=== PATIENT | female | born 1960 | race Caucasian/White ===

== ENCOUNTER 2020-04-19 00:57 | Emergency (ER) | payer OTHER, BC, SELFPAY ==
[2020-04-19] VITALS (43 sets, daily range): BP systolic 142–213; BP diastolic 88–125; PULSE 68–87; RESP 11–20; TEMP 36.3–36.6; O2SAT 94–100
--- NOTE | ~2020-04-19 | XR_ITS ---
EXAMINATION: XR shoulder LT min 2V EXAM DATE: 04/19/2020 02:40 INDICATION: Postreduction. TECHNIQUE: Frontal and lateral projections of the left shoulder. Comparison is made to prior examina tion from earlier same day. FINDINGS: The left humerus has been reduced, is in expected position. No acute fracture identified, but impaction type injuries of humeral head can be difficult to visualize. IMPRESSION: Status post left shoulder reduction. Reviewed, dictated and finalized at location A. RCOLLAR BASTER
--- NOTE | ~2020-04-19 | XR_ITS ---
EXAMINATION: XR humerus LT EXAM DATE: 04/19/2020 03:51 INDICATION: Left humeral pain distally. TECHNIQUE: Frontal and lateral projections of the left humerus. There is no prior study for compari son. FINDINGS: There are no acute left humerus fractures or dislocations identified. There is no subcutan eous gas. The soft tissue is unremarkable. There are no radiopaque foreign bodies. IMPRESSION: 1. XR humerus LT exam without acute osseous findings. Reviewed, dictated and finalized at location A. SLICER
--- NOTE | ~2020-04-19 | XR_ITS ---
EXAMINATION: XR shoulder LT min 2V EXAM DATE: 04/19/2020 01:25 INDICATION: Fall, left shoulder dislocation. TECHNIQUE: The following left shoulder projections obtained: frontal projection, Grashey, and scapula r Y view (4 views). There is no prior study for comparison. FINDINGS: There is left humeral anterior inferior shoulder dislocation. No acute fracture identified but there could be a Hill-Sachs impaction type injury which is not well-visualized. IMPRESSION: Left humeral anterior inferior shoulder dislocation. Reviewed, dictated and finalized at location A. AURANT HOURLY TEAM MEMBER
--- NOTE | 2020-04-19 01:19 | PC.NURSE ---
Patient taken to xray.
[2020-04-19] MEDS: MORPHINE SULFATE (*CRX) 4 MG/ML INJ IV PUSH (01:32)
[2020-04-19] MEDS: ONDANSETRON INJ 4 MG/2 ML VIAL IV PUSH (01:32)
--- NOTE | 2020-04-19 02:08 | PC.NURSE ---
MD aware of patient's bp.
[2020-04-19] MEDS: PROPOFOL IV EMULSION 200 MG/20 ML VIAL 40 MG IV PUSH (02:10)
--- NOTE | 2020-04-19 02:15 | PC.NURSE ---
2nd dose of propofol given, 20mg IV per ERP .
[2020-04-19] MEDS: HYDROcodone/acetaminophen (*CRX) 5-325 MG TABLET 1 TAB PO (02:52)
--- NOTE | 2020-04-19 03:35 | ED.GENADULT ---
HPI - General Adult General Chief complaint: Extremity Injury, Upper Stated complaint: fall Time Seen by Provider: 04/19/20 01:05 Source: RN notes reviewed History of Present Illness HPI narrative: Patient presents to emergency department from home for left shoulder pain patient states approximately 1030 she fell landing on her left shoulder she felt a pop at that time she denies striking her head or any loss of consciousness she denies any other injury from the fall patient denies any blood thinner use states she took no previous pain medication at home Related Data Home Medications Medication Instructions Recorded Confirmed estradiol mg 04/19/20 Allergies Allergy/AdvReac Type Severity Reaction Status Date / Time adhesive tape Allergy Unknown RASH Verified 04/19/20 01:14 doxycycline Allergy Unknown Nausea and Verified 04/19/20 01:14 Vomiting latex Allergy Unknown rash Verified 04/19/20 01:14 lidocaine Allergy Unknown rash Verified 04/19/20 01:14 verenice warm area losartan Allergy Unknown rash Verified 04/19/20 01:14 Sulfa (Sulfonamide Allergy Unknown rash Verified 04/19/20 01:14 Antibiotics) Review of Systems Review of Systems: Narrative: Gen.: Denies fevers or chills Eyes: Denies eye pain or visual change ENT: Denies facial pain Respiratory: Denies shortness of breath or cough CV: Denies chest pain GI: Denies abdominal pain nausea, emesis or diarrhea Musculoskeletal: See HPI Neuro: Denies numbness, tingling, weakness or focal weakness Skin: Denies rash Except as documented, all other systems reviewed and negative PMFSH Past Medical History Medical History Dental crown present Depression with anxiety Dyslipidemia GERD without esophagitis Menopause Normal Pap smear (~09/2019) Osteoarthritis, localized, knee Primary insomnia Unspecified osteoarthritis, unspecified site Surgical History Surgical History H/O vaginal surgery (~2011) History of dental surgery History of hysterectomy with bilateral oophorectomy (~02/1992) due to endometrial cancer w/ chemo: [facility] History of tonsillectomy and adenoidectomy (~1996) S/P appendectomy (~1969) S/P arthroscopic surgery of left knee (~2016) Family History Family History Father Family history of diabetes mellitus in first degree relative Family history of heart disease in male family member before age 55 Hypertension Family history of cardiovascular disease Sibling Family history of diabetes mellitus in first degree relative Family history of heart disease in male family member before age 55 Family history of seizure disorder Mother Patient's mother is Diabetes mellitus Hypertension Grandparent Diabetes mellitus Hypertension Family history of cardiovascular disease Cerebrovascular accident Other Family history of malignant neoplasm of breast in first degree relative Social History Social History Smoking status: Never smoker Alcohol intake: current Substance use: never 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 CARDIOVASCULAR: Regular rate and rhythm without murmurs rubs or gallops. ABDOMINAL: Soft, nontender, nondistended, no rebound or guarding MUSCULOSKELETAl: No clubbing, cyanosis or edema. No tenderness of right upper extremity and bilateral lower extremities no tenderness of the right elbow or wrist tender p
== END 2020-04-19 04:30 | disposition home or self-care (01) ==
PROVIDERS: Emergency Provider Emergency Medicine; PCP Family Medicine
DX: S43.015A Anterior dislocation of left humerus, initial encounter (principal); E78.5 Hyperlipidemia, unspecified; K21.9 Gastro-esophageal reflux disease without esophagitis; M17.10 Unilateral primary osteoarthritis, unspecified knee; Z92.21 Personal history of antineoplastic chemotherapy; Z85.44 Personal history of malignant neoplasm of other female genital organs; W19.XXXA Unspecified fall, initial encounter
CPT/HCPCS: 23650; 73030; 73060; 96374; 96375; 99285; A9270; J2270; J2405; J2704

== ENCOUNTER 2020-05-13 10:55 | Outpatient (CLI) | payer BC, SELFPAY ==
--- NOTE | ~2020-05-13 | MR_ITS ---
EXAMINATION: MR shoulder LT wo con DATE: 05/13/2020 12:03 INDICATION: Left shoulder dislocations. TECHNIQUE: Magnetic resonance imaging (MRI) of the left shoulder was performed without intravenous co ntrast. Sequences included axial PD-weighted FS FSE, coronal oblique PD-weighted FS FSE, coronal obli que T2-weighted FS FSE, sagittal PD-weighted FS FSE, and sagittal T1-weighted SE. COMPARISON: None. FINDINGS: Coracoacromial arch: The acromion undersurface is curved in minimally morphology (type I-II). The coracoacromial ligament is normal. Acromioclavicular joint is normal. Rotator cuff: The supraspinatus, infraspinatus and teres minor tendons are normal. The subscapularis tendon is norm al. Normal rotator cuff muscle bulk and signal. Biceps tendon, glenoid labrum and glenohumeral cartilage: Long head of the biceps tendon is normal. There is a nondisplaced Bankart fracture of the anteroinfer ior glenoid which extends from the 3:00 to the 9:00 positions with associated labral tears at both lo cations. The crescentic fragment of the articular surface measures approximately 2 cm from the mary ann superior to posterior inferior and 6 mm in orthogonal dimension. There is an additional more well-def ined linear fluid signal intensity tear at the chondral labral junction at the 8:00-9:30 position of the posterior glenoid. Deep chondral ulceration/injury slightly posterolateral to the apex of the hum eral head relatively near a shallow Hill-Sachs fracture trough with mild surrounding edema. Aside fro m along the Bankart fracture plane the glenoid cartilage appears relatively preserved. Fluid: Physiologic amount of fluid in the glenohumeral joint and biceps tendon sheath. No loose osteochondra l bodies. No abnormal fluid signal in the subacromial/subdeltoid bursa to suggest bursitis. Bones/other: Edema associated with the previous noted relatively recent Bankart and Hill-Sachs fractures at the an teroinferior glenoid and posterolateral humeral head respectively. Bone alignment remains essentially anatomic. No other fractures identified. No pathologic marrow replacing process. Partial tear of the posterior inferior glenohumeral ligament. IMPRESSION: 1. Anterior glenohumeral dislocation injury pattern with nondisplaced Bankart fracture at the anteroi nferior glenoid and shallow Hill-Sachs fracture with adjacent partial thickness chondral injury at th e posterolateral humeral head. 2. Additional more well-defined small tear/delamination at the chondral labral junction of the metal buggy operator ior glenoid. 3. Soft tissue edema associated with a partial tear of the posterior inferior glenohumeral ligament l ikely related to the dislocation injury. Reviewed, dictated and finalized at location A. NTAMINATION TECHNICIAN IMPRESSION: 1. Anterior glenohumeral dislocation injury pattern with nondisplaced Bankart f racture at the anteroinferior glenoid and shallow Hill-Sachs fracture with humza cent partial thickness chondral injury at the posterolateral humeral head. 2. Additional more well-defined small tear/delamination at the chondral labral junction of the posterior glenoid. 3. Soft tissue edema associated with a partial tear of the posterior inferior g lenohumeral ligament likely related to the dislocation injury.
== END 2020-05-13 10:56 | disposition home or self-care (01) ==
PROVIDERS: PCP Family Medicine; Visit Provider Orthopaedic Surgery
DX: S42.295A Other nondisplaced fracture of upper end of left humerus, initial encounter for closed fracture (principal); S43.015A Anterior dislocation of left humerus, initial encounter; S43.432A Superior glenoid labrum lesion of left shoulder, initial encounter; M79.89 Other specified soft tissue disorders
CPT/HCPCS: 73221

== ENCOUNTER → 2020-09-04 13:40 | Outpatient (CLI) | payer OTHER, BC, SELFPAY ==
--- NOTE | ~2020-09-04 | DEXA_ITS ---
Bone Density Report Name: Laisha Escalante Age: 60 Sex: Female Ethnicity: White Date of : 1960 Indication: monitoring treatment; prior fracture; hysterectomy; postmenopausal Referring Provider: LALA BATES Study: Bone densitometry was performed. Exam Date: September 04, 2020 Accession number: [id number] Bone Density: Region BMD T-score Z-score Classification AP Spine (L1-L4) 0.959 -0.8 0.5 Normal Femoral Neck (Left) 0.783 -0.6 0.6 Normal Total Hip (Left) 0.948 0.0 0.9 Normal Femoral Neck (Right) 0.862 0.1 1.3 Normal Total Hip (Right) 0.977 0.3 1.1 Normal Total Hip Mean 0.963 0.2 1.0 Normal World Health Organization criteria for BMD impression classify patients as: Normal (T-score at or above -1.0), Osteopenia (T-score between -1.0 and -2.5), or Osteoporosis (T-score at or below -2.5). 10-year Fracture Risk: FRAX not reported because: All T-scores for Spine Total, Hip Total, Femoral Neck at or above -1.0 Treated for osteoporosis Previous Exams: Region Exam Age BMD T-score BMD Change BMD Change Date g/cm2 vs Baseline vs Previous AP Spine(L1-L4) 09/04/2020 60 0.959 -0.8 -0.078* -0.078* 09/24/2013 53 1.037 -0.1 Total Hip(Left) 09/04/2020 60 0.948 0.0 -0.043* -0.043* 09/24/2013 53 0.991 0.4 Total Hip(Right) 09/04/2020 60 0.977 0.3 -0.024 -0.024 09/24/2013 53 1.001 0.5 *Denotes significance at 95% confidence level, LSC for AP Spine = 0.022 g/cm2, LSC for Total Hip = 0.027 g/cm2 Clinical Information Provided by Patient: Has had a low trauma fracture Is being treated for osteoporosis Has used the following medications: HRT (i.e. estrogen/hormone therapy), Vitamin D, Calcium Has the following medical conditions: Hysterectomy Patient maximum height was 67 Menopause Age: 32 No regular weight bearing exercise Drinks caffeinated beverages Onset of menses at age 15 Number of children 4 Impression: The patient has normal bone mass. The patient has risk factors, including: previous fracture. The BMD for the AP Spine(L1-L4) decreased, changing by -0.078 since the last DXA exam. The BMD for the Total Hip(Left) decreased, changing by -0.043 since the last DXA exam. Discussion: SIGNIFICANT BONE LOSS OBSERVED. Adherence to therapy (including calcium and vitamin D intake) should be assessed. If compliance is not a factor, review management and exclusion of secondary causes of bone l
== END ==
PROVIDERS: PCP Family Medicine; Visit Provider Obstetrics & Gynecology Gynecology
DX: Z78.0 Asymptomatic menopausal state (principal)
CPT/HCPCS: 77080

== ENCOUNTER → 2021-04-23 12:30 | Outpatient (CLI) | payer BC, SELFPAY ==
--- NOTE | ~2021-04-23 | MR_ITS ---
EXAMINATION: MR hip LT wo con DATE: 04/23/2021 13:33 INDICATION: Left hip pain TECHNIQUE: Magnetic resonance imaging (MRI) of the left hip was performed without intravenous contra st. Sequences included full-field axial PD-weighted FS FSE and T1-weighted FSE, coronal of the pelvis with PD-weighted FS FSE, small field of view of the left hip with axial PD-weighted FS FSE, sagittal PD-weighted FS FSE and coronal PD weighted FS FSE. Additional radial T1-weighted FGR oriented orthog onal to the acetabular rim were obtained for evaluation of the labrum. COMPARISON: 01/07/2015 FINDINGS: Bones/labrum/cartilage: Alignment is normal. No fracture, avascular necrosis or pathologic marrow replacing process. Severe lower lumbar predominant spondylosis. Mild left hip osteoarthritis with nonuniform joint space narrow ing with partial thickness cartilage loss with mild chondral surface irregularity which is most promi nent along the margins of the acetabula. Diffuse labral degeneration. There is a small fluid signal i ntensity cleft extending to the bone at the superolateral rim of the acetabulum likely between the na tive acetabular rim and the more peripheral osteophyte extending into the labrum. Fluid: Symmetric physiologic amount of fluid within both hip joints. Soft tissues: Normal and symmetric muscle bulk and signal in the pelvis and visualized proximal thighs. The iliopso as, gluteal and proximal hamstring tendons are normal. There are few scattered diverticula along the sigmoid colon without adjacent inflammatory change to suggest diverticulitis. The uterus is not ident ified and has likely been surgically resected. Limited evaluation of visceral organs of the pelvis is otherwise unremarkable. No pathologically enlarged pelvic/inguinal lymphadenopathy. IMPRESSION: 1. Mild left hip osteoarthritis with diffuse labral degeneration. 2. Severe lower lumbar spondylosis. Reviewed, dictated and finalized at location A. D MUSIC OPERATOR
== END ==
PROVIDERS: PCP Family Medicine; Visit Provider Orthopaedic Surgery
DX: M47.816 Spondylosis without myelopathy or radiculopathy, lumbar region (principal); M16.12 Unilateral primary osteoarthritis, left hip
CPT/HCPCS: 73721

== ENCOUNTER 2021-05-22 15:06 | Outpatient (CLI) | payer BC, SELFPAY ==
--- NOTE | ~2021-05-22 | MR_ITS ---
EXAMINATION: MR lumbar spine wo con DATE: 05/22/2021 16:19 INDICATION: Low back pain. TECHNIQUE: Magnetic resonance imaging (MRI) of the lumbar spine was performed without intravenous con trast. Sequences included sagittal T2-weighted FSE, sagittal T2-weighted FS FSE, sagittal STIR FSE, s agittal T1-weighted FSE, and axial T2-weighted FSE. COMPARISON: Lumbar spine radiographs 01/07/2015 FINDINGS: Bone alignment is normal. Vertebral body heights are normal. There is severely decreased di sc height at L4-L5 and moderately decreased disc height at L5-S1 with endplate remodeling. The distal spinal cord signal intensity is normal. The conus medullaris is at T12-L1. The following disc levels are specifically discussed: L1-L2: The disc does not extend beyond the endplate margin. There is mild bilateral facet joint osteo arthritis. There is no neural foraminal stenosis. There is no central canal stenosis. L2-L3: The disc does not extend beyond the endplate margin. There is mild bilateral facet joint osteo arthritis. There is no neural foraminal stenosis. There is no central canal stenosis. L3-L4: The disc is mildly bulging. There is mild bilateral facet joint osteoarthritis. There is mild bilateral neural foraminal stenosis. There is no central canal stenosis. L4-L5: The disc is bulging. There is mild bilateral facet joint osteoarthritis. There is mild bilater al neural foraminal stenosis. There is mild central canal stenosis. L5-S1: The disc is bulging and has an annular fissure. There is mild bilateral facet joint osteoarthr itis. There is mild bilateral neural foraminal stenosis. There is mild central canal stenosis. IMPRESSION: 1. Severe lower lumbar spondylosis. Reviewed, dictated and finalized at location A. RNED ITEM CLERK
== END 2021-05-22 15:07 | disposition home or self-care (01) ==
LOC: ANHIMG 15:29
PROVIDERS: PCP Family Medicine; Visit Provider Orthopaedic Surgery
DX: M54.50 Low back pain, unspecified (principal); M47.816 Spondylosis without myelopathy or radiculopathy, lumbar region
CPT/HCPCS: 72148

== ENCOUNTER 2021-08-18 01:09 | Day surgery (SDC) | payer BC, SELFPAY ==
[2021-08-06 12:40] VITALS: BMI 25.2
[2021-08-18 07:56] VITALS: BP 158/68; PULSE 72; RESP 16; TEMP 36.7; O2SAT 100
[2021-08-18] MEDS: LACTATED RINGERS 1,000 ML 150 ML IV CONT (07:58)
--- NOTE | 2021-08-18 08:54 | WPDANESEPPF ---
Anes - Initial Pre Proc Eval Procedure: Operation Date: 08/18/21 09:00 Proposed Procedures p Screening Colonoscopy - Inder Morris MD Date/Time: 08/18/21 08:54 Surgeon: Inder Morris MD Pre Op Diagnosis: neoplasm screening Patient Data Age: 61 Gender: F Height: 1.7 m Weight: 72.4 kg Last Vital Signs Temp 98.1 F 08/18/21 07:56 Pulse 72 08/18/21 07:56 Resp 16 08/18/21 07:56 BP 158/68 H 08/18/21 07:56 Pulse Ox 100 08/18/21 07:56 Allergies Allergy/AdvReac Type Severity Reaction Status Date / Time adhesive tape Allergy Mild RASH Verified 08/18/21 07:52 amlodipine Allergy Mild Cause leg Verified 08/18/21 07:52 and feet swelling latex Allergy Unknown rash Verified 08/18/21 07:52 lidocaine Allergy Unknown rash Verified 08/18/21 07:52 verenice warm area losartan Allergy Unknown rash Verified 08/18/21 07:52 Sulfa (Sulfonamide Allergy Unknown rash Verified 08/18/21 07:52 Antibiotics) doxycycline AdvReac Mild Nausea and Verified 08/18/21 07:52 Vomiting Home Medications Medication Instructions Recorded Confirmed Type estradiol 2 mg tablet 2 mg PO DAILY tablet 04/28/20 08/10/21 History multivitamin with iron 1 tablet PO DAILY 06/11/21 08/06/21 History tizanidine 1 mg PO Q4H PRN 08/18/21 08/18/21 History Patient hx anesthesia problems: none Family hx anesthesia problems: none Results Review: All pre-operative results and documents have been reviewed as part of the pre-operative evaluation. [facility] Past Medical History Medical History Acne Chronic sinusitis Cough Dental crown present Depression with anxiety Dyslipidemia Encounter for counseling regarding immunization Essential (primary) hypertension Facial pain Facial pressure Flu-like symptoms GERD without esophagitis Glenoid fracture of shoulder History of endometrial cancer Menopause Normal Pap smear (~09/2019) Osteoarthritis, localized, knee Pain, dental Primary insomnia Screening for breast cancer Screening for colon cancer Sinus pressure Sinusitis Traumatic dislocation of left shoulder region Unspecified osteoarthritis, unspecified site Wheezing Surgical History Surgical History H/O vaginal surgery (~2011) History of dental surgery History of hysterectomy with bilateral oophorectomy (~02/1992) due to endometrial cancer w/ chemo: [facility] History of tonsillectomy and adenoidectomy (~1996) S/P appendectomy (~1969) S/P arthroscopic surgery of left knee (~2016) Family History Family History Father Family history of diabetes mellitus in first degree relative Family history of heart disease in male family member before age 55 Hypertension Family history of cardiovascular disease Sibling Family history of diabetes mellitus in first degree relative Family history of heart disease in male family member before age 55 Family history of seizure disorder Mother Patient's mother is Diabetes mellitus Hypertension Grandparent Diabetes mellitus Hypertension Family history of cardiovascular disease Cerebrovascular accident Other Family history of malignant neoplasm of breast in first degree relative Social History Social History Social History: Smoking status: Never smoker Second hand tobacco smoke exposure: No Alcohol intake: never Substance use: never Substance use type: does not use Living arrangements: with family 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
--- NOTE | 2021-08-18 08:56 | PM.HPGS ---
History of Present Illness History of Present Illness Consent: Risks, benefits, and alternatives have been discussed and questions answered. Patient agrees to proceed with procedure. Chief complaint: neoplasm screening Narrative: Laisha Escalante is a 61 year old female here for colonoscopy, last one 2012 Review of Systems Constitutional: Constitutional: Denies headache(s) and Denies weakness Eyes: Eyes: Denies blurry vision ENT: Reports Normal hearing present, Denies headache(s) and Denies neck pain Cardiovascular: Cardiovascular: Denies chest pain and Denies dyspnea Respiratory: Respiratory: Denies dyspnea Gastrointestinal: Gastrointestinal: Reports no additional gastrointestinal complaints Genitourinary: Genitourinary: Denies dysuria Musculoskeletal: Musculoskeletal: Denies neck pain Integumentary/Breasts: Skin/Breast: Denies dry skin Neurologic: Reports Normal hearing present, Denies headache(s) and Denies weakness Psychiatric: Psychiatric: Denies anxiety Endocrine: Endocrine: Denies change in body appearance Hematologic/Lymphatic: Hematologic/Lymphatic: Denies easy bleeding Allergic/Immunologic: Allergic/Immunologic: Denies urticaria PMFSH Past Medical History Medical History Acne Chronic sinusitis Cough Dental crown present Depression with anxiety Dyslipidemia Encounter for counseling regarding immunization Essential (primary) hypertension Facial pain Facial pressure Flu-like symptoms GERD without esophagitis Glenoid fracture of shoulder History of endometrial cancer Menopause Normal Pap smear (~09/2019) Osteoarthritis, localized, knee Pain, dental Primary insomnia Screening for breast cancer Screening for colon cancer Sinus pressure Sinusitis Traumatic dislocation of left shoulder region Unspecified osteoarthritis, unspecified site Wheezing Surgical History Surgical History H/O vaginal surgery (~2011) History of dental surgery History of hysterectomy with bilateral oophorectomy (~02/1992) due to endometrial cancer w/ chemo: [facility] History of tonsillectomy and adenoidectomy (~1996) S/P appendectomy (~1969) S/P arthroscopic surgery of left knee (~2016) Family History Family History Father Family history of diabetes mellitus in first degree relative Family history of heart disease in male family member before age 55 Hypertension Family history of cardiovascular disease Sibling Family history of diabetes mellitus in first degree relative Family history of heart disease in male family member before age 55 Family history of seizure disorder Mother Patient's mother is Diabetes mellitus Hypertension Grandparent Diabetes mellitus Hypertension Family history of cardiovascular disease Cerebrovascular accident Other Family history of malignant neoplasm of breast in first degree relative Social History Social History Social History: Smoking status: Never smoker Second hand tobacco smoke exposure: No Alcohol intake: never Substance use: never Substance use type: does not use Living arrangements: with family 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
[2021-08-18 09:27] VITALS: BP 106/60; PULSE 61; RESP 14; O2SAT 100
[2021-08-18 09:37] VITALS: BP 117/67; PULSE 67; RESP 14; O2SAT 100
[2021-08-18 09:47] VITALS: BP 113/63; PULSE 63; RESP 18; O2SAT 100
== END 2021-08-18 10:00 | disposition home or self-care (01) ==
PROVIDERS: PCP Internal Medicine; Visit Provider Internal Medicine Gastroenterology
PROC: 0DJD8ZZ Inspection of Lower Intestinal Tract, Via Natural or Artificial Opening Endoscopic (ICD-10-PCS; CPT 45378; principal; 2021-08-18 09:00)
DX: Z12.11 Encounter for screening for malignant neoplasm of colon (principal); D12.0 Benign neoplasm of cecum; D12.2 Benign neoplasm of ascending colon; K57.30 Diverticulosis of large intestine without perforation or abscess without bleeding; K63.89 Other specified diseases of intestine; K64.8 Other hemorrhoids; I10 Essential (primary) hypertension; K21.9 Gastro-esophageal reflux disease without esophagitis; F41.8 Other specified anxiety disorders; E78.5 Hyperlipidemia, unspecified; Z85.42 Personal history of malignant neoplasm of other parts of uterus
CPT/HCPCS: 45380; 45385; 88305; J2704; J7120

== ENCOUNTER 2021-11-03 08:02 | Outpatient (CLI) | payer BC, SELFPAY ==
--- NOTE | 2021-11-11 16:01 | WPDSLEEPSTUD ---
Sleep Study Date of Study: 11/03/21 Ordering Provider: Brayan Hale Interpreting Physician: Merly Reed MD Sleep Study Type: Polysomnogram Height: 1.7 m Weight: 72.575 kg Body Mass Index: 25.0 Neck Circumference (inches): 13 [place]: 10 Reason for Sleep Study Daytime sleepiness, gasping for air at night, excessive daytime sleepiness; hypertension, palpitations * 10/01/2021- Home Sleep Test: recording time of 5 hours 59 minutes, 4 hours 38 minutes of sleep, apnea-hypopnea index of 1.3 using the 4% criteria and an apnea-hypopnea index of 3.5 using the 3% desaturation criteria. Desaturation to 82%. * 12/14/2016- Home Sleep Test with mild obstructive sleep apnea AHI 5.1 with mild snoring minimum oxygen desaturation Sleep History Laisha Escalante is a 61 year old female with longstanding difficulty falling asleep and staying asleep, excessive daytime sleepiness, poor sleep and gasping for air at night. Multiple family members have sleeping issues. She has used sleeping pills in the past. She occasionally awakens from sleep feeling short of breath. She never awakens at night with heartburn, belching or coughing. She does not know if she snores. She thinks she only snores when she has an upper respiratory infection. She constantly has trouble sleeping with a cold. She occasionally wakes up gasping for breath at night. She occasionally has breathing problems at night observed by others. She frequently sweats excessively at night and notices her heart pounding or beating irregularly at night. She occasionally falls asleep during the day, never involuntarily and never while driving. She rarely has loss of muscle tone with strong emotion. She constantly has daytime problems due to excessive sleepiness. She does not feel paralyzed on waking waking or falling asleep. She constantly has vivid dreamlike scenes on waking or falling asleep. She does no feel afraid to go to sleep. She occasionally has nightmares. She constantly remembers her dreams and constantly has racing thoughts. She frequently feels sad or depressed. She frequently has anxiety. She constantly has muscular tension which she attributes to an injury to her shoulder, neck, hip and back. Her joints ache often. She occasionally notices parts of her body jerking. She constantly kicks at night. She frequently has crawling and aching feelings in her legs and frequently has leg pain during the night associated with numbness since her injury. She frequently has morning jaw pain. She occasionally grinds her teeth at night, has been told this by someone else, probably her dentist. She constantly is bothered by pain during the day related to the injury. She frequently is awakened by pain at night. She constantly wakes up feeling stiff in the morning with sore achy muscles and pain in the neck and spine. She has dizziness at times, fatigue, memory problems, insomnia, concentration difficulties due to pain and the pain keeps her awake at night. She has depression. Normal bedtime is between 8:00 p.m. and 9:00 p.m., taking at least 10 minutes to fall asleep, typically waking 2-3 times during the night. The first time she wakes is soon after falling asleep, and she gets a drink of water and adjusts her ear plugs, then wakes again later to go to the bathroom in the middle of the night. It takes just a few minutes for her to return to sleep. She takes naps in the afternoon or evening. Sometimes these naps are irresistible however they are not refreshing. She becomes extremely tired since her injury. She is usually drowsy in the morning for 3 hours or longer. Habits: Never smoked tobacco. No caffeine, alcohol or recreational drugs. [facility] Past Medical History Medical History Acne Chronic sinusitis Cough Dental crown present Depression with anxiety Diverticulosis large intestine w/o perforation or abscess w/o bleeding Dyslipidemia E
[2021-11-16 10:28] VITALS: BMI 25.0
== END 2021-11-04 07:33 | disposition home or self-care (01) ==
PROVIDERS: PCP Internal Medicine
DX: G47.30 Sleep apnea, unspecified (principal)
CPT/HCPCS: 95810; 99199

== ENCOUNTER 2022-02-23 09:32 | Outpatient (CLI) | payer BC, SELFPAY ==
--- NOTE | ~2022-02-23 | US_ITS ---
US abdomen limited DATE: 02/23/2022 10:17 INDICATION: Back pain TECHNIQUE: Real-time imaging of liver, pancreas, gallbladder COMPARISON: 11/22/2018 right upper quadrant abdominal ultrasound examination, reported unremarkable FINDINGS: No hepatic or pancreatic space-occupying mass lesion. Normal hepatopedal portal venous flow direction. No gallbladder wall thickening or gallstones or abnormal pericholecystic fluid collection . Negative sonographic Fernández's sign. The common bile duct measures 2.6 mm, normal. IMPRESSION: Normal examination Reviewed, dictated and finalized at [facility]. Reviewed, dictated and finalized at location A. IMPRESSION: Normal examination
== END 2022-02-23 09:33 | disposition home or self-care (01) ==
PROVIDERS: PCP Internal Medicine; Visit Provider Internal Medicine
DX: M54.9 Dorsalgia, unspecified (principal)
CPT/HCPCS: 76705

== ENCOUNTER → 2022-04-13 11:50 | Outpatient (CLI) | payer BC, SELFPAY ==
--- NOTE | ~2022-04-13 | MR_ITS ---
MRI of the thoracic spine Clinical History: Back pain Technique: Axial T2-weighted images, and sagittal T1-weighted, T2-weighted, and T2 fat-sat images wer e acquired. Findings: There is no fracture or subluxation of the thoracic spine. Vertebral bodies maintain normal height and alignment. No suspicious bone marrow signal abnormality seen. No significant disc bulge or herniation seen at any thoracic level. No spinal canal stenosis or cord compression identified. No epidural mass or collection. Paravertebral soft tissues are unremarkable. Impression: No significant abnormality seen. Reviewed, dictated and finalized at location M. NESS LOAN PROCESSOR Impression: No significant abnormality seen.
== END ==
PROVIDERS: PCP Internal Medicine
DX: M54.6 Pain in thoracic spine (principal); G89.29 Other chronic pain
CPT/HCPCS: 72146

== ENCOUNTER 2023-05-11 13:17 | Outpatient (CLI) | payer BC, SELFPAY ==
[2023-05-11 14:07] LABS: Appearance Urine Clear (Clear); Bilirubin Urine Negative (Negative); Blood Urine Negative (Negative); Color Urine Dark Yellow (Yellow); Glucose Urine UA Negative (Negative); Ketones Urine Trace mg/dL (Negative); Leukocyte Esterase Ur Negative LEU/UL (NEGATIVE); Nitrate Urine Negative (Negative); Protein Urine Negative (Negative); Specific Grav Ur 1.024 (1.001-1.035); Urobilinogen Urine 0.2 mg/dL (<2.0); pH Urine 5.5 (5.0-9.0)
[2023-05-11 14:13] LABS: Add Urine Microscopic? NO
[2023-05-11 14:53] LABS: Strep Group A RT-PCR NOT DETECTED (Negative)
== END 2023-05-11 13:18 | disposition home or self-care (01) ==
LOC: ANHLAB 13:19
PROVIDERS: PCP Family Medicine; Visit Provider Nurse Practitioner Family
DX: J02.9 Acute pharyngitis, unspecified (principal); R39.15 Urgency of urination
CPT/HCPCS: 81003; 87070; 87086; 87651; 87880

== ENCOUNTER 2024-03-07 14:07 | Outpatient (CLI) | payer BC, SELFPAY | END 2024-03-07 14:08 | disposition home or self-care (01) | LOC: ANHAUDIO 14:09 | PROVIDERS: PCP Family Medicine; Visit Provider Nurse Practitioner Family | DX: H90.5 Unspecified sensorineural hearing loss (principal) | CPT/HCPCS: 92557; 92567 ==

== ENCOUNTER 2024-03-12 14:11 | Outpatient (CLI) | payer BC, SELFPAY ==
--- NOTE | ~2024-03-12 | CT_ITS ---
EXAMINATION: CT sinus wo con DATE: 03/12/2024 15:01 INDICATION: Chronic sinusitis. TECHNIQUE: Computed tomography (CT) of the paranasal sinuses was performed without intravenous contra st. Iterative reconstruction technique was employed. The dose-length product was 295.93 mGy-cm. COMPARISON: None FINDINGS: There is mild mucosal thickening in the frontal and ethmoid sinuses. The sphenoid sinuses a nd left maxillary sinus are clear. There is mild mucosal thickening in right maxillary sinus. There i s leftward deviation of the nasal septum. The ostiomeatal units are patent. IMPRESSION: 1. Mild mucosal thickening in the paranasal sinuses. 2. Leftward deviation of the nasal septum. Reviewed, dictated and finalized at location A. UNT EXECUTIVE TRAINEE
== END 2024-03-12 14:12 | disposition home or self-care (01) ==
PROVIDERS: PCP Family Medicine; Visit Provider Nurse Practitioner Family
DX: J34.89 Other specified disorders of nose and nasal sinuses (principal); J34.2 Deviated nasal septum; J32.9 Chronic sinusitis, unspecified
CPT/HCPCS: 70486

== ENCOUNTER 2024-07-24 16:50 | Outpatient (CLI) | payer BC, SELFPAY ==
--- NOTE | ~2024-07-24 | XR_ITS ---
CHEST RADIOGRAPH, PA AND LATERAL CLINICAL HISTORY: COUGH AND WHEEZING X 2 WEEKS . COMPARISON: 10/30/2012 TECHNIQUE: PA and lateral views of the chest. FINDINGS The cardiomediastinal silhouette is unremarkable. The lungs are clear. Visualized osseous structures and soft tissues are unremarkable. IMPRESSION: No focal infiltrate or effusion. Reviewed, dictated and finalized at location A.
--- OUTSIDE RECORDS SUMMARY | 2024-07-24 17:38 | XMS_ITS | Clinical Summary ---
Author Organization [facility] Address [address] [place] [address] Care Team Providers Care Recycling Worker Name Role Phone Prince Osei MD Primary Care Provider [phone] Nhi Covarrubias MD PhD Unavailable [phone] Allergies Active Allergy Reactions Criticality Noted Date Comments Adhesive Itching,Rash High 06/25/2020 Amlodipine Swelling High 09/18/2021 Cyclobenzaprine Anxiety Low 06/26/2020 JITTERY Latex Other (See comments) Low 12/03/2022 I am circles for days Lidocaine Rash,Shortness of breath High 06/26/2020 Only to lidocaine with preservatives Other Rash Medium 02/06/2024 Preservatives in some lidocaines Propofol Other (See comments),Rash High 10/07/2021 Significant Pain Sulfa (Sulfonamide Antibiotics) Rash Medium 09/18/2021 Medications cholecalciferol (VITAMIN D-3) 87517 unit tablet Take 1,250 mcg by mouth every 30 (thirty) days Active vit 22-vtml-cbsid-d whitfield 27mg iron- 800 mcg-250 mg capsule Take by mouth Active ezetimibe (ZETIA) 10 mg tablet Take 1 tablet (10 mg total) by mouth daily 3 Active diclofenac sodium (VOLTAREN) 1 % gel Apply topically as needed Active ibuprofen (ADVIL,MOTRIN) 800 mg tablet Take 1 tablet (800 mg total) by mouth 2 (two) times a day as needed for pain 60 tablet 2 3 Active metoprolol XL (TOPROL-XL) 25 mg extended release tablet TAKE 1 TABLET(25 MG) BY MOUTH DAILY 90 tablet 3 Active hydroCHLOROthia zide (HYDRODIURIL) 25 mg tablet TAKE 1 TABLET(25 MG) BY MOUTH DAILY 90 tablet 3 Active fluoride, sodium, 1.1 % paste 3 Active methocarbamoL (ROBAXIN) 500 mg tablet 4 Active progesterone (PROMETRIUM) 200 mg capsule Take by mouth daily 4 Active temazepam (RESTORIL) 15 mg capsule TK ONE C PO QHS PRF INSOMNIA Active plecanatide (Trulance) 3 mg tablet Take 1 tablet (3 mg total) by mouth daily Active levoFLOXacin (LEVAQUIN) 750 mg tablet TAKE 1 TABLET BY MOUTH EVERY DAY FOR 7 DAYS 5 Active ipratropium (ATROVENT) 42 mcg (0.06 %) nasal spray Administer into each nostril 3 (three) times a day 5 Active HYDROcodone-richard taminophen (NORCO) 7.5-325 mg per tablet Take 1 tablet by mouth every 6 (six) hours 4 Active HYDROcodone-richard taminophen (NORCO) 5-325 mg per tablet TAKE 1 TABLET BY MOUTH EVERY 4 TO 6 HOURS [address] (CYMBALTA) 30 mg capsule Take 1 capsule (30 mg total) by mouth daily 5 Active tiZANidine (ZANAFLEX) 4 mg tablet TK 1 T PO TID PRF MUSCLE SPASTICITY Active Active Problems Problem Noted Date Diagnosed Date Chest pain 12/03/2022 Pain in joint of left knee 06/03/2021 Other chronic pain 02/28/2021 Adjustment disorder with mixed anxiety and depre ssed mood 02/28/2021 Current tear of medial cartilage or meniscus of knee 12/07/2019 Prepatellar bursitis 12/07/2019 Abnormal mammogram 12/24/2018 Encounters Date Type Department Care Team Description 06/11/2024 2:55 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 - 06/11/2024 11:59 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 Hospital Encounter [facility] [address] [place] [address] Nhi Covarrubias MD PhD 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 (Primary Dx); Chronic bilateral thoracic back pain Discharge Disposition: Discharge to home or self care 06/07/2024 Telephone [facility] [address] [place] [address] [facility] [address] [place] [address] Nhi Covarrubias MD PhD PMC Preprocedure 05/29/2024 Orders Only [facility] [address] [place] [address] Advanced Medicine [address] [place] [address] Nhi Covarrubias MD PhD Chronic bilateral thoracic back pain (Primary Dx) 05/22/2024 Orders Only [facility] the [address] Medicine [address] [place] [address] Nhi Covarrubias MD PhD 05/17/2024 Telephone [facility] [address] [place] [address] Advanced Medicine [address] [place] [id number] Nhi Covarrubias MD PhD Patient Information ( / ) 05/10/2024 3:30 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 Telemedicine [facility] [address] [place] [id number] Denise Salas MD Urticaria (Primary Dx); Adverse effect of drug, subsequent encounter 05/03/2024 Telephone [facility] [address] [place] [address] Michelle Ackerman RN 05/01/2024 Telephone [facility] [address] [place] [address] [address] [place] [address] Nhi Covarrubias MD PhD from Last 3 Months Immunizations Immunization Administration Dates Next Due Hep A, Adult 05/12/2001,11/04/2000 Hep B, Unspecified 06/18/1999,11/13/1998, 998 Influenza, Quadrivalent, Rec ombinant, Egg Free, Preservative Free, Intramuscular 01/09/2016 Influenza, Quadrivalent, Spl it, Preservative Free, Intramuscular 01/15/2020,12/16/2018,01/16/2018,02/02 Influenza, Trivalent, IM (MDV) 11/27/2013 Pneumococcal Polysaccharide PPV23 02/09/2013 Tdap 12/21/2013 ZOSTER Recombinant 07/21/2018,05/22/2018 Surgical History Surgery Date Site/Laterality Comments KNEE SURGERY Left meniscus repair HYSTERECTOMY 04/25/1992 - 04/24/1993 DEACONESS TONSILLECTOMY 04/25/2000 - 04/24/2001 [place] FLUORO GUIDED INJECTION SHOULDER LEFT 07/01/2020 Left APPENDECTOMY TUBAL LIGATION BLADDER SURGERY LIMBAL STEM CELL TRANSPLANT 04/25/2015 - 04/24/2016 Left EPIDURAL INJECTION LEFT CERVICAL THORACIC 1 LEVEL 03/05/2021 Left FLUORO GUIDED INJECTION SHOULDER LEFT 05/15/2021 Left BREAST BIOPSY Right EXCISION / BIOPSY BREAST / NIPPLE / DUCT FLUORO GUIDED INJECTION SHOULDER LEFT 02/06/2024 Left Medical History Medical History Date Comments Hypertension fair control--al so has white coat syndrome Migraine only occasionall y Vitamin D deficiency well contro lled with meds Chronic pain Hyperlipidemia no l\onger takes meds Adjustment disorder with mix ed anxiety and depressed mood Insomnia Headache occasionally wak es with headache Fracture closed, humerus, shaft fractured glenoid on the left from fall in March 2020 Neck pain Arrhythmia Arthritis Depression Neuromuscular disorder (HCC) Neck pain Shoulder pain Mitral valve prolapse Heart valve problem Hiatal hernia Nodule of left lung 2 mm nodule Cyst, breast, left biopsy taken Low back pain Anxiety Family History Medical History Relation Name Comments Anxiety disorder Brother Cancer Brother Chronic Pain Brother Seizures Brother Heart attack Father Surjit Dubon Heart disease Father Surjit Dubon Hypertension Father Surjit Dubon Physical abuse Father Surjit Dubon Stroke Father Surjit Dubon Anxiety disorder Mother luis Luis Cancer Mother luis Luis Chronic Pain Mother luis Luis Depression Mother luis Luis Diabetes Mother luis Luis Heart disease Mother luis Luis Physical abuse Mother luis Luis Relation Name Status Comments Brother Father Surjit Dubon Mother luis Luis Social History Tobacco Use Types Packs/Day Years Used Date Smoking Tobacco: Never Smokeless Tobacco: Never Tobacco Cessation:Counseling Given: Not Answered Alcohol Use Standard Drinks/Week Comments Yes 0 (1 standard drink = 0.6 oz pur e alcohol) RARE AUDIT-C Answer Date Recorded Q1: How often do you have a drink containing alc ohol? 2-4 times a month 06/11/2024 Q2: How many drinks containi ng alcohol do you have on a typical day when you are drinking? 1 or 2 06/11/2024 Q3: How often do you have si x or more drinks on one occasion? Never 06/11/2024 Hunger Vital Sign Answer Date Recorded Within the past 12 months, y ou worried that your food would run out before you got the money to buy more. Never true 06/11/19 25 Within the past 12 months, t he food you bought just didn't last and you didn't have money to get more. Never true 06/11/2024 Personal Safety Answer Date Recorded Have you ever been in or are you currently in a harmful physical or emotional relationship or is someone making you feel afraid or unsafe? 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 Respiratory Rate 18 06/11/2024 4:46 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 Oxygen Saturation 100% 06/11/2024 4:46 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 Inhaled Oxygen Concentration - - Weight 72 kg (158 lb 11.2 oz) 06/11/2024 3:10 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 Height 170.2 cm (5' 7 ) 06/11/2024 3:10 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 Body Mass Index 24.86 06/11/2024 3:10 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 Plan of Treatment Scheduled Procedures Name Priority Associated Diagnoses Date/Ti me COLONOSCOPY Encounter for screening for malignant neoplasm of colon Health Maintenance Due Date Last Done Comments Depression Screening 1960 Hepatitis C Screening 1960 Regular Well Visit/Exam 18-64 1980 DTaP/Tdap/Td Vaccine (2 - Td or Tdap) 12/22/2023 12/21/2013 Covid-19 Vaccine ( season) 2023 04/30/2021, 10/29/2020, 10/08/2020 Breast Cancer Screening-Mammogram 10/12/2024 10/13/2023, 10/13/2023, 10/11/2022, Additional history exists Influenza Vaccine (Season Ended) 2024 01/05/2021, 01/15/2020, 12/16/2018, Additional history exists Colon Cancer Screening-Colonoscopy 04/09/2034 04/09/2024 Hepatitis B Screening Completed 06/18/1999 , 11/13/1998, 02/19/1998 Zoster Vaccine Completed 07/21/2018, 05/22/2018 Pneumococcal vaccine <65 Aged Out 05/06/2021, 01/23 No longer eligible based on patient's age to complete this topic Colon Cancer Screening-CT Colonography Discontinued 04/09/2024 Colon Cancer Screening-DNA Stool Discontinued 04/09/2024 Colon Cancer Screening-FIT Discontinued 04/09/2024 Colon Cancer Screening-Sigmoidoscopy Discontinued 04/09/2024 Goals Goal Patient Goal Type Associated Problems Recent Progress Patient-Stated? 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 Minimize further functional decline 2. Maximize quality of life 3. 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 Please refer to the physician's procedure / OR operative note. 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 Providers: Surachai Amornsawadwattana, M.D. Medicines: Monitored Anesthesia Care Complications: No immediate complications. Estimated Blood Loss: Estimated blood loss was minimal. Procedure: Pre-Anesthesia Assessment: - Prior to the procedure, a History and Physicalwas performed, and patient medications, allergies and sensitivities were reviewed. The patient'stolerance of previous anesthesia was reviewed. - Immediately prior to administration ofmedications, the patient was re-assessed for adequacy to receive sedatives. - The risks and benefits of the procedure and the sedation options and risks were discussed with the patient. All questions were answered and informed consent was obtained. The benefits, risks and alternatives of theprocedure and sedation were discussed and informed consentwas obtained. All questions were answered. Please referto the signed informed consent document in the medical record. The scope was passed under direct vision.The [id number] endoscope was introduced through the anus and advanced to the cecum, identified by appendiceal orifice and ileocecal valve. The colonoscopy was performed without difficulty. The quality of the bowel preparation was evaluatedusing the BBPS ([place] Bowel Preparation Scale) withscores of: Right Colon = 3, Transverse Colon = 3 and Left Colon = 3 (entire mucosa seen well with no residual staining, small fragments of stool or opaqueliquid). The total BBPS score equals 9. The bowelpreparation used was GoLYTELY via split dose instruction. The quality of the bowel preparation was adequate. The patient tolerated the procedure. Findings: The perianal and digital rectal examinations were normal. Non-bleeding internal hemorrhoids were found during retroflexion. The hemorrhoids were small. Multiple small and large-mouthed diverticula were found in thesigmoid colon. An 8 mm polyp was found in the sigmoid colon. The polyp was semi-pedunculated. The polyp was removed with a hot snare. Resectionand retrieval were complete. To prevent bleeding after the polypectomy,one hemostatic clip was successfully placed (MR conditional). Clip lead engineer: Brand Embassy. There was no bleeding at the end ofthe procedure. Seven sessile polyps were found in the transverse colon, ascendingcolon and cecum. The polyps were 3 to 6 mm in size. These polyps wereremoved with a cold snare. Resection and retrieval were complete. The exam was otherwise without abnormality. Impression: - Non-bleeding internal hemorrhoids. - Diverticulosis in the sigmoid colon. - One 8 mm polyp in the sigmoid colon, removed witha hot snare. Resected and retrieved. Clip (MR conditional) was placed. Clip lead engineer: Brand Embassy. - Seven 3 to 6 mm polyps in the transverse colon(2), in the ascending colon (2) and in the cecum (3), removed with a cold snare. Resected andretrieved. - The examination was otherwise normal. Recommendation: - Discharge patient to home. - Await pathology results. - Repeat colonoscopy in 3 years for surveillance of multiple polyps. - Return to referring physician as previously scheduled. - We performed biopsies during your proceduretoday. If you do not receive the result from my office in, please contact my office at [phone]. Attending Participation: I personally performed the entire procedure. Electronically signed by Flavio Almaraz MD Flavio Almaraz M.D. 04/09/2024 1:42:22 PM . Number of Addenda: 0 Note Initiated On: 04/09/2024 12:40 PM Flavio Almaraz MD ENDOSCOPY PROCEDUR ES Final Result from Last 3 Months or Most Recently Relevant to Health Maintenance [place] For more information, please contact: [phone] Documents on File Type Date Recorded Patient Manager Mall Expl anation ADVANCE DIRECTIVE 06/25/2020 4:44 PM Power of Utility Hand-Medical * Full Code (Latest Code Status on File) Date Activated Date Inactivated Comments 04/09/2024 11:51 AM 04/09/2024 7:10 PM Care Teams Recycling Worker Relationship Specialty Start Date End Date Prince Osei MD PCP - General Family Practice 10/01/22 Nhi Covarrubias MD PhD [address] [place] [address] Anesthesiologist Anesthesiology 10/20/22
--- OUTSIDE RECORDS SUMMARY | 2024-07-24 17:38 | XMS_ITS | Continuity of Care Document ---
Author Organization [facility] Address [address] [place] [address] [address] [place] [address] Phone Care Team Providers Care Metal Sprayer Production Name Role Phone Adame OD, Nadir Unavailable Unavailable Procedures Procedure Date Post-op Follow-up Visit Eye Exam, New Patient Refraction Advance Directives Directive Yes / No Effective Date File Name No Information Encounters Encounter Description Practice Location Reason(s) For Visit Diagnoses Date Provider Providers Copied on Encounter [facility], [address] [place] [address] [address], [place], [place], [id number], tel:[phone] [facility] No Information 8 9 Adame OD Nadir[address] , [address], [place], [address], [place]. tel:[phone] [facility], [address] [place] [address] [address], [place], [place], [id number], tel:[phone] [facility] No Information [address] [facility] [address] , [address], [place], [address], [place]. tel:[phone] Family History Family Member Type Diagnosis Age At Onset No Information Payers Payer name Insurance type Covered democrat ID Authoriza tion(s) No Information Social History Type Description Quantity Date Captured Comments Sex Female Smoking Status No Information Chief Complaint And Reason For Visit No Information Reason For Referral Reason For Referral No Information History Of Present Illness Encounter Date Complaint History Of Prese nt Illness No Information Functional Status Date Functional Assessmen t No Information Instructions Date Instruction Additional Infor mation No Information Assessments Type Assessment Date No Information Patient Care Teams Name Effective Dates (start - stop) Status Members No Information
--- OUTSIDE RECORDS SUMMARY | 2024-07-24 17:38 | XMS_ITS | Clinical Summary ---
Author Organization [facility] Address [address] [place] [address] Care Team Providers Care Hydrologic Engineer Name Role Phone Steve Cole MD Unavailable [phone] Prince Osei MD Primary Care Provider [phone] Source Comments [facility],non-owned Affiliates and Associated Physician Practices is amultiple site organization consisting of ambulatory clinics and hospital sitesin [place], [place], [place] and [place]. This disclosure is being madepursuant to the Care Everywhere program and may not contain all information available regarding this patient. Last updated 18.[facility] [employer] Allergies Active Allergy Reactions Criticality Noted Date Comments Adhesive Sensitivity Rash High 09/18/2021 Amlodipine Base Swelling High 09/18/2021 Cyclobenzaprine Other Low 06/26/2020 JITTERY Latex 08/04/2011 swelling Lidocaine Rash Medium 06/26/2020 Propofol Other,Rash Medium 10/07/2021 Burning Sulfa Drugs 08/04/2011 rash Medications * Be aware that medications may not be up to date on this document. Alwaysverify current medications with the patient. Medication Sig Dispensed Refills Start Date End Date Status IBUPROFEN PO Take 800 mg by mouth every 6 hours as needed Active diclofenac sodium (VOLTAREN) 1 % gel APPLY 2 GRAMS TOPICALLY THREE TIMES DAILY 07/24/2020 Active vitamin D, ergocalciferol, (DRISDOL) 1.25 MG (63600 UT) capsule Take 1 (one) capsule by mouth every 7 days 09/05/2020 Active metoprolol succinate XL 24hr (TOPROL XL) 25 MG tablet Take 1 (one) tablet by mouth once daily 09/18/2021 Active hydroCHLOROthiazide (HYDRODIURIL) 25 MG tablet Take 1 (one) tablet by mouth once daily 09/18/2021 Active progesterone 100 mg 100 mg tablet Take 1 (one) tablet by mouth at bedtime Active valACYclovir (Valtrex) 500 MG tablet Take 1 (one) tablet by mouth 2 times daily 09/15/2022 Active Progesterone 200 MG capsule 10/10/2022 Active MV-Min-Fe Fum-FA-DHA ( Multi +DHA) 27-0.8-250 MG CAPS Active estradiol (Estrace) 2 MG tablet estradiol 2 mg tablet TAKE 1 TABLET BY MOUTH DAILY Active benzonatate (Tessalon) 200 MG capsule benzonatate 200 mg capsule TAKE 1 CAPSULE BY MOUTH THREE TIMES DAILY NEEDED FOR COUGH Active cephalexin (Keflex) 500 MG capsule Take 1 (one) capsule by mouth 2 times daily 8 capsule 11/15/2022 Active ezetimibe (Zetia) 10 MG tablet Take 1 (one) tablet by mouth once daily Active Active Problems Problem Noted Date Diagnosed Date Abnormal mammogram 12/24/2018 Immunizations Name Administration Dates Next Due FLU VACCINE QUAD IIV4 PF ID 01/09/2016 Family History Medical History Relation Name Comments Hypertension Father Cancer - Breast Maternal Grandmother Diabetes - Type 2 Mother Relation Name Status Comments Father Alive Maternal Grandmother Mother Social History Tobacco Use Types Packs/Day Years Used Date Smoking Tobacco: Never Smokeless Tobacco: Never Tobacco Cessation:Counseling Given: Not Answered Alcohol Use Standard Drinks/Week Comments Not Asked 0 (1 standard drink = 0.6 oz pur e alcohol) Sex and Gender Information Value Date Recorded Sex Assigned at Not on file Gender Identity Not on file Sexual Orientation Not on file Last Filed Vital Signs Vital Sign Reading Time Taken Comments Blood Pressure 119/79 10/13/2023 11:30 AM CDT Pulse 60 10/13/2023 11:30 AM CDT Temperature 37.1 C (98.8 F) 10/13/2023 11:30 AM CDT Respiratory Rate 18 10/11/2022 11:57 AM CDT Oxygen Saturation 98% 10/13/2023 11:30 AM CDT Inhaled Oxygen Concentration - - Weight 73.5 kg (162 lb) 10/13/2023 11:30 AM CDT Height 170.2 cm (5' 7 ) 10/13/2023 11:30 AM CDT Body Mass Index 25.37 10/13/2023 11:30 AM CDT Plan of Treatment Upcoming Encounters Date Type Department Care Team (Late st Contact Info) Description 10/18/2024 11:00 AM CDT Appointment [facility] [address] [place] [address] 10/18/2024 11:30 AM CDT Office Visit [facility] - General Surgery [address] [place] [phone] Mary Alice Puente MD [address] [facility] [address] [place] [address] Health Maintenance Due Date Last Done Comments COLOGUARD (AGES 45-75) - COLON CA SCREENING 1960 COLON MONITORING 1962 COLONOSCOPY - COLON CA SCREENING 1962 CT COLONOGRAPHY - COLON CA SCREENING 1960 Colorectal Cancer Screening 1960 FIT - COLON CA SCREENING 1962 FLEX SIG - COLON CA SCREENING 1962 LIPID TESTING 1962 PAP SMEAR 1962 HIV SCREENING 1977 HEPATITIS C SCREENING 03/27/1980 DTAP/TDAP/TD VACCINES (1 - Tdap) 1981 PNEUMOCOCCAL VACCINE 50+ (1 of 1 - PCV) 2012 ZOSTER VACCINE (1 of 2) 2012 SCREENING FOR DIABETES 10/13/2023 COVID-19 VACCINE (1 - 2023- season) 2023 INFLUENZA VACCINE (#1) 2023 2, 01/15/2020, 12/16/2018, Additional history exists DEPRESSION SCREENING 04/25/2024 MAMMOGRAM 10/12/2025 10/13/2023, 09/23, 10/11/2022, Additional history exists Respiratory Syncytial Virus (RSV) Vaccine Pt: or over 60 yrs (1 - 1-dose 75+ series) 2037 HEPATITIS B VACCINE Aged Out No longe r eligible based on patient's age to complete this topic HIB VACCINE Aged Out No longer eligi ble based on patient's age to complete this topic HPV VACCINE Aged Out No longer eligi ble based on patient's age to complete this topic MENINGOCOCCAL (Group B) VACCINE SHARED DECISION-MAKING Aged Out No longer eligible based on patient's age to complete this topic MENINGOCOCCAL GROUPS A/C/Y/W VACCINE Aged Out No longer eligible based on patient's age to complete this topic Medical Devices Implanted Type Area Stone Rubber Device Identifier Shelf Expiration Date Model / Serial / Lot Mrkr Rgd End Dpl Dlv Sys Clip Securmark Implanted:Qty: 1 on 10/19/2021 by Valery Betancourt MD at [facility] Right: Breast Hologic 01/26/2022 SMARK-EVIVA -13 / / [id number] [facility] Biop Site Celero Implanted:Qty: 1 on 02/08/2022 by Valery Betancourt MD at [facility] Right: Breast Hologic 08/20/2022 SMARK-CELER O-2S / / [id number] Procedures Procedure Name Priority Date/Time Associated Diagnosis Comments MAMMO BILAT SCREENING W CYNTHIA Routine 10/13/2023 9:36 AM CDT Encounter for screening mammogram for malignant neoplasm of breast from Last 3 Months or Most Recently Relevant to Health Maintenance Results * MAMMO BILAT SCREENING W CYNTHIA (10/13/2023 9:36 AM CDT) Anatomical Region Laterality Modality Breast Bilateral Mammography 10/13/2023 9:32 AM CDT Impressions 10/13/2023 11:13 AM CDT : Benign mammogram, without evidence of malignancy. RECOMMENDATION: Screening mammography in one year, pending no interval breast concerns. Dr. Betancourt discussed results with patient at the time of exam. She will see Dr. Puente in the breast clinic today. OVERALL ASSESSMENT: BI-RADS CATEGORY 2: BENIGN. > Dictated by Bethany Ogden MD (vice president fixed income). I, Valery Betancourt MD have personally reviewed and interpreted this examination/study. > Interpreting Provider: Valery Betancourt MD on 10/13/2023 11:13 AM Narrative 10/13/2023 11:13 AM CDT EXAMINATIONS: BILATERAL DIGITAL SCREENING MAMMOGRAM AND BILATERAL BREAST TOMOSYNTHESIS WITH CAD LOCATION: [facility] EXAM DATE: 10/13/2023 HISTORY: Screening. 63-year-old female with chronic bilateral nipple discharge. History of benign right breast biopsies. Family history of breast cancer in a maternal grandmother at age 50. RISK ASSESSMENT CALCULATION: Patient completed a breast cancer risk assessment during her appointment 10/13/2023. Based upon the information she provided and her mammographic breast density, her lifetime risk of developing breast cancer is 9 % (Average Risk <15%; Intermediate / Moderate Risk 15-19; High Risk > 20%). Risk assessment based upon the BRCAPRO model. COMPARISON: Comparison is made to prior breast studies dated back to 09/18/2020, with the most recent one dated 01/06/2023. TECHNIQUE: Tomosynthesis (3D) and reconstructed synthetic 2-D images acquired and reviewed in the bilateral craniocaudal and mediolateral oblique projections. A total of 5 images obtained. Computer-aided detection (CAD) was utilized. BREAST PARENCHYMAL COMPOSITION: Category C: The breasts are heterogeneously dense which may obscure small masses. FINDINGS: There are no suspicious findings or evidence of malignancy on mammography. Biopsy clips in the right lateral breast. Bilateral benign vascular calcifications. There is no significant change from the prior studies. Mary Alice Puente MD MAMMO ORDERABLES from Last 3 Months or Most Recently Relevant to Health Maintenance Care Teams Hydrologic Engineer Relationship Specialty Start Date End Date Prince Osei MD [address] [place] [id number] PCP - General Family Medicine 01/06/23 Steve Cole MD [address] [address] Internal Medicine 10/13/22
--- OUTSIDE RECORDS SUMMARY | 2024-07-24 17:38 | XMS_ITS | Encounter Summary ---
Author Organization [facility] Healthcare Address [address] [place] [address] Care Team Providers Care Welcome Wagon Hostess Name Role Phone Prince Osei MD Primary Care Provider [phone] Nhi Covarrubias MD PhD Unavailable [phone] Encounter Details Date Type Department Care Team (Late st Contact Info) Description 05/16/2023 Telephone [facility] at the [place] [facility] [address] [facility] [address] [place] [address] Nhi Covarrubias MD PhD [address] [place], [place] [id number] Social History Tobacco Use Types Packs/Day Years Used Date Smoking Tobacco: Never Smokeless Tobacco: Never Alcohol Use Standard Drinks/Week Comments Yes 0 (1 standard drink = 0.6 oz pur e alcohol) RARE AUDIT-C Answer Date Recorded Q1: How often do you have a drink containing alc ohol? Monthly or less 04/15/2022 Q2: How many drinks containi ng alcohol do you have on a typical day when you are drinking? 1 or 2 04/15/2022 Frequency of Binge Drinking Not on file 03/26 Hunger Vital Sign Answer Date Recorded Within the past 12 months, y ou worried that your food would run out before you got the money to buy more. Never true 12/04/19 23 Within the past 12 months, t he food you bought just didn't last and you didn't have money to get more. Never true 12/03/2022 Personal Safety Answer Date Recorded Getting School Help Needed Not on file 04/09 Comments No Sex and Gender Information Value Date Recorded Sex Assigned at Not on file Legal Sex Female 10:04 PM MOTOR AND CONTROLS TESTER Gender Identity Not on file Sexual Orientation Straight 05/22/2020 6: 40 PM MOTOR AND CONTROLS TESTER documented as of this encounter Plan of Treatment Scheduled Procedures Name Priority Associated Diagnoses Date/Ti me COLONOSCOPY Encounter for screening for malignant neoplasm of colon documented as of this encounter Goals Goal Patient Goal Type Associated Problems Recent Progress Patient-Stated? Author CCM Chronic Pain Care Plan Chronic Care Management No change(06/11 3:12 PM MOTOR AND CONTROLS TESTER) No Sagar Rich, ELENA Note: Problem: Chronic Pain Goals: 1. Minimize further functional decline 2. Maximize quality of life 3. Control pain Strategies: - Activity/exercise program recommendation - Conservative stepwise pain medicine strategy with multi-disciplinary approach - Recommend healthy lifestyle strategies and compensatory methods as needed documented as of this encounter Visit Diagnoses Not on filedocumented in this encounter Care Teams Welcome Wagon Hostess Relationship Specialty Start Date End Date Prince Osei MD PCP - General Family Practice 10/01/22 Nhi Covarrubias MD PhD [address] [place] [address] Anesthesiologist Anesthesiology 10/20/22 documented as of this encounter
--- OUTSIDE RECORDS SUMMARY | 2024-07-24 17:38 | XMS_ITS | Referral Summary ---
Author Organization [facility] Address [address] [place] [address] Care Team Providers Care Mail Rider Name Role Phone Prince Osei MD Primary Care Provider [phone] Nhi Covarrubias MD PhD Unavailable [phone] Encounters Date Type Department Care Team Description 06/11/2024 2:55 PM MANAGER OF DATA - 06/11/2024 11:59 PM MANAGER OF DATA Hospital Encounter [facility] at the 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 Advanced Medicine [address] [place] [address] Advanced Medicine [address] [place] [address] Nhi Covarrubias MD PhD PMC Preprocedure 05/29/2024 Orders Only [facility] at the [facility] Advanced Medicine [address] [place] [address] Advanced Medicine [address] [place] [address] Nhi Covarrubias MD PhD Chronic bilateral thoracic back pain (Primary Dx) 05/22/2024 Orders Only [facility] at [facility] [place] [facility] [address] [place] [address] Advanced Medicine [address] [place] [address] Nhi Covarrubias MD PhD 05/17/2024 Telephone [facility] [address] [facility] Medicine [address] [place] [address] Nhi Covarrubias MD PhD Patient Information ( / ) 05/10/2024 3:30 PM MANAGER OF DATA Telemedicine [facility] Immunology [address] [facility] [address] [place] [phone] Josue, Denise Colvin MD Urticaria (Primary Dx); Adverse effect of drug, subsequent encounter 05/03/2024 Telephone [facility] [address] [place] [address] Michelle Ackerman RN 05/01/2024 Telephone [facility] Center at the [facility] [address] [facility] [address] [place] [address] Nhi Covarrubias MD PhD from Last 3 Months Allergies Active Allergy Reactions Criticality Noted Date [...] Rash Medium 09/18/2021 Medications cholecalciferol (VITAMIN D-3) 12896 unit tablet Take 1,250 mcg by mouth every 30 (thirty) days Active vit 46-jrdh-zkrtw-d [place] 27mg iron- 800 mcg-250 mg capsule [...] 12/07/2019 Prepatellar bursitis 12/07/2019 Abnormal mammogram 12/24/2018 Immunizations Immunization Administration Dates Next Due Hep A, Adult 05/12/2001,11/04/2000 Hep B, Unspecified 06/18/1999,11/13/1998, 998 Influenza, Quadrivalent, Rec ombinant, Egg Free, Preservative Free, Intramuscular 01/09/2016 Influenza, Quadrivalent, Spl it, Preservative Free, Intramuscular 01/15/2020,12/16/2018,01/16/2018,02/02 Influenza, Trivalent, IM (MDV) 11/27/2013 Pneumococcal Polysaccharide PPV23 02/09/2013 Tdap 12/21/2013 ZOSTER Recombinant 07/21/2018,05/22/2018 Social History Tobacco Use Types Packs/Day Years [...] on file Legal Sex Female 10:04 PM MANAGER OF DATA Gender Identity Not on file Sexual Orientation Straight 05/22/2020 6: 40 PM MANAGER OF DATA Last Filed Vital Signs Vital Sign Reading Time Taken Comments Blood Pressure 119/83 06/11/2024 4:46 PM MANAGER OF DATA Pulse 65 06/11/2024 4:46 PM MANAGER OF DATA Temperature 36.2 C (97.1 F) 06/11/2024 3:10 PM MANAGER OF DATA Respiratory Rate 18 06/11/2024 4:46 PM MANAGER OF DATA Oxygen Saturation 100% 06/11/2024 4:46 PM MANAGER OF DATA Inhaled Oxygen Concentration - - Weight 72 kg (158 lb 11.2 oz) 06/11/2024 3:10 PM MANAGER OF DATA Height 170.2 cm (5' 7 ) 06/11/2024 3:10 PM MANAGER OF DATA Body Mass Index 24.86 06/11/2024 3:10 PM MANAGER OF DATA Plan of Treatment Scheduled Procedures Name Priority Associated Diagnoses Date/Ti me COLONOSCOPY Encounter for screening for malignant neoplasm of colon Goals Goal Patient Goal Type Associated Problems Recent Progress Patient-Stated? Author CCM Chronic Pain Care Plan Chronic Care Management No change(06/11 3:12 PM MANAGER OF DATA) No Sagar Rich RN Note: Problem: Chronic Pain Goals: 1. 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 Please refer to the physician's procedure / OR operative note. us Nhi Covarrubias MD PhD IMG PAIN MGMT PROCEDUR ES Final Result [facility] * Colonoscopy (04/09/2024 12:40 PM MANAGER OF DATA) Anatomical Region Laterality Modality Other Narrative Procedure Note Flavio Almaraz MD - 04/09/2024 12:40 PM CST [facility] Patient Name: Laisha Escalante Procedure Date: 04/09/2024 12:40PM Date of : 1960 Admit Type: Outpatient Age: 64 Gender: Female Attending MD: Joyce Miller Room: [facility] ENDOSCOPY ROOM 3 Note Status: Finalized Procedure: Colonoscopy Indications: High risk colon cancer surveillance: Personalhistory of colonic polyps, Last colonoscopy: 2021 Referring MD: Prince Osei M.D. Providers: Flavio Almaraz M.D. Medicines: Monitored Anesthesia Care Complications: No [...] The scope was passed under direct vision.The CF [id number] endoscope was introduced through the anus and advanced to the cecum, identified by appendiceal orifice and ileocecal valve. The colonoscopy was performed without difficulty. The quality of the bowel preparation was evaluatedusing the BBPS ([place] Bowel Preparation Scale) withscores of: Right Colon [...] clip was successfully placed (MR conditional). Clip residential aide: [employer]. There was no bleeding at the end [...] retrieved. Clip (MR conditional) was placed. Clip residential aide: [employer]. - Seven 3 to 6 mm polyps [...] office in, please contact my office at [phone]. Attending Participation: I personally performed the entire procedure. Electronically signed by Flavio Almaraz MD Flavio Almaraz M.D. 04/09/2024 1:42:22 PM . Number of Addenda: 0 Note Initiated On: 04/09/2024 12:40 PM Flavio Almaraz MD ENDOSCOPY PROCEDUR ES Final Result from Last 3 Months or Most Recently Relevant to Health Maintenance [place] Advance Directives For more information, please contact: [phone] Documents on File Type Date Recorded Patient Merchandise Clerk Expl anation ADVANCE DIRECTIVE 06/25/2020 4:44 PM Power of Keypuncher-Medical * Full Code (Latest Code Status on File) Date Activated Date Inactivated Comments 04/09/2024 11:51 AM 04/09/2024 7:10 PM Care Teams Mail Rider Relationship Specialty Start Date End Date Prince Osei MD PCP - General Family Practice 10/01/22 Nhi Covarrubias MD PhD [address] [place] [address] Anesthesiologist Anesthesiology 10/20/22
--- OUTSIDE RECORDS SUMMARY | 2024-07-24 17:38 | XMS_ITS | CONTINUITY OF CARE DOCUMENT ---
Author Name raimundo eubanks Address Unknown Organization [facility] Address [address] [place] [address] Phone [phone] Care Team Providers Care Assistant Community Director Name Role Phone Geoffrey CUMMINS, Brayan Denney Unavailable CHAYO CUMMINS, GRISELDA Unavailable [phone] GRISELDA DOMINGO MD Unavailable [phone] PROBLEMS Condition Status Date Provider Notes Cardiology examination active Brayan españa MD Hyperlipidemia active Brayan Hale MD HTN essential active Brayan Hale MD Palpitations active Brayan Hale MD Sleep apnea active Brayan Hale MD Chest pain-type to be determined active She ranjana Mathis [employer] Lung nodule active Brayan Hale MD ENCOUNTERS Date Type Provider Location Encounter Diag nosis - In-person encounter Office Visit Brayan Hale MD [facility] - In-person encounter Office Visit Brayan Hale MD [facility] - In-person encounter Office Visit Brayan Hale MD [facility] - In-person encounter Office Visit Brayan Hale MD [facility] Lung nodule - In-person encounter Office Visit Brayan Hale MD [facility] Chest pain-type to be determined - In-person encounter Office Visit Brayan Hale MD [facility] - In-person encounter Office Visit Brayan Hale MD [facility] Sleep apnea - In-person encounter Office Visit Brayan Hale MD [facility] Cardiology examinationHyperlipidemiaHTN essentialPalpitations VITAL SIGNS Date Observation Value Provider Body Mass Index (Ratio) 26.27 kg/m2 Krystina Hale MD blood pressure, diastolic 72 mm[Hg] Sofya nkLoginna blood pressure, systolic 122 mm[Hg] Bethany kLogic blood pressure, cuff size regular Ol ivia Perez blood pressure, diastolic 72 mm[Hg] Ol ivia Perez blood pressure, systolic 122 mm[Hg] Gio via Perez respiratory rate E&M 12 /min Beena Perez oxygen saturation, oximetry 99 % Beena Perez pulse rate 62 /min Beena Perez weight E&M 162.8 [lb_av] Beena Perez height E&M 66 [in_i] Ebena Perez Body Mass Index (Ratio) 25.66 kg/m2 Krystina Hale MD blood pressure, diastolic 76 mm[Hg] Sofya nkLoginna blood pressure, systolic 131 mm[Hg] Bethany Farzanaogic weight E&M 159 [lb_av] Anaid Pastor pulse rate 57 /min Anaid Pastor respiratory rate E&M 18 /min Anaid Pastor blood pressure, diastolic 76 mm[Hg] Sh linda Pastor blood pressure, systolic 131 mm[Hg] She ranjana Pastor oxygen saturation, oximetry 99 % Anaid Pastor blood pressure, cuff size regular Sh shantay Darby height E&M 66 [in_i] Anaid Pastor Body Mass Index (Ratio) 25.50 kg/m2 Krystina Hale MD blood pressure, cuff size regular Ke rri Gruenesandyeldankur blood pressure, diastolic 80 mm[Hg] Ke rri Gruenenfeldankur blood pressure, systolic 110 mm[Hg] Ker ri Matilde oxygen saturation, oximetry 99 % Shania Matilde respiratory rate E&M 12 /min Shania G eamonenecelestina pulse rate 57 /min Shania Vish ambrocioer weight E&M 158 [lb_av] Shania Marianonfe lder height E&M 66 [in_i] Shania Marianonfhomer ambrocioer Body Mass Index (Ratio) 25.82 kg/m2 Kyrstina Hale MD blood pressure, diastolic 70 mm[Hg] Li nkLoginna blood pressure, systolic 110 mm[Hg] Bethany kLoginna blood pressure, diastolic 70 mm[Hg] Minerva Damon blood pressure, systolic 110 mm[Hg] [facility] lacey Damon oxygen saturation, oximetry 98 % Silvana Damon pulse rate 60 /min Silvana martinez weight E&M 160 [lb_av] Silvana martinez respiratory rate E&M 16 /min Gretel Damon blood pressure, cuff size large Minerva Damon height E&M 66 [in_i] Silvana martinez Body Mass Index (Ratio) 25.50 kg/m2 Krystina Hale MD blood pressure, cuff size regular Ke rri Aleksandaruenecelestina blood pressure, diastolic 81 mm[Hg] Fam Kanelder blood pressure, systolic 113 mm[Hg] Mallika Clayton oxygen saturation, oximetry 98 % Shania Chauhaner respiratory rate E&M 14 /min Shania zuniganfelder pulse rate 56 /min Shania Wahl lder weight E&M 158 [lb_av] Shania Kane lder height E&M 66 [in_i] Shania Wahl er Body Mass Index (Ratio) 25.08 kg/m2 Krystina Hale MD blood pressure, diastolic 80 mm[Hg] Sofya nkLoginna blood pressure, systolic 122 mm[Hg] Bethany Yanesoginna blood pressure, cuff size regular St acfaisal Augustine blood pressure, diastolic 80 mm[Hg] St acfaisal Augustine blood pressure, systolic 122 mm[Hg] Adalid Augustine oxygen saturation, oximetry 98 % Kristina Augustine respiratory rate E&M 18 /min Kristina gomez pulse rate 54 /min Kristina Augustine weight E&M 155.4 [lb_av] Kristinamercedez Augustine height E&M 66 [in_i] Kristinamercedez Augustine weight E&M 158 [lb_av] Anmol greer Body Mass Index (Ratio) 25.50 kg/m2 Krystina Hale MD blood pressure, diastolic 74 mm[Hg] Li nkLogic blood pressure, systolic 114 mm[Hg] Bethany kLogic blood pressure, diastolic 74 mm[Hg] Ca therine [place] blood pressure, systolic 114 mm[Hg] Cat herine [place] oxygen saturation, oximetry 98 % Marina [place] pulse rate 58 /min Marina [place] respiratory rate E&M 14 /min Catheri ne Adria weight E&M 158 [lb_av] Marina [place] blood pressure, cuff size regular Ca therine [place] height E&M 66 [in_i] Marina Adria Body Mass Index (Ratio) 26.14 kg/m2 Krystina Hale MD blood pressure, cuff size regular Ke rri Gruenenfelder blood pressure, diastolic 82 mm[Hg] Ke rri Gruenenfelder blood pressure, systolic 130 mm[Hg] Mallika ri Gruenenfelder oxygen saturation, oximetry 99 % Shania Grrafanfelder respiratory rate E&M 14 /min Shania G ruenenfelder pulse rate 63 /min Shania Marianonfe lder weight E&M 162 [lb_av] Shania Grminnenfe lder height E&M 66 [in_i] Shania Aleksandarminnenfe lder ALLERGIES Allergy Name Onset Date Reaction Criticality Status PRESERVATIVES/ ADDITIVES Shortness of Breath Ra sh High Criticality active XYLOCAINE Shortness of Breath High Criticality active PROPOFOL only if certain preservatives High Criticality active LIDOCAINE pt allergic to t he preservative, not plain lidocaine Low Criticality active AMLODIPINE swelling High Criticality active SULFA Rash Low Criticality active TAPE Rash paper tape ok High Criticality active LAYTEX Rash itching itching High Criticalit y active RESULTS Date Observation Value Provider Reference Range Interpretation Location 2 lipoprotein, beta, serum, point, quantitative, calculated 159 mg/dL [facility] 0-99 High 2 HDL cholesterol, serum 58 mg/dL [facility] >39 2 triglyceride, serum, random 113 mg/dL [facility] 0-149 2 cholesterol, serum 237 mg/dL [facility] 100-199 High 9 creatinine, serum 0.81 mg/dL [facility] 0.57-1.00 3 hemoglobin A1C, blood, as % of total hemoglobin 5.8 % [facility] 4.8-5.6 High 3 lipoprotein, beta, serum, point, quantitative, calculated 198 mg/dL [facility] 0-99 High 3 HDL cholesterol, serum 64 mg/dL [facility] >39 3 triglyceride, serum, random 163 mg/dL [facility] 0-149 High 3 cholesterol, serum 292 mg/dL [facility] 100-199 High 3 alanine aminotransferase (SGPT), serum 15 1/L [facility] 0-32 3 aspartate aminotransferase (SGOT), serum 20 1/L [facility] 0-40 3 alkaline phosphatase, serum 72 1/L [facility] 44-121 3 bilirubin, serum, total 0.3 mg/dL [facility] 0.0-1.2 3 albumin/globulin ratio, serum 1.8 [facility] 1.2-2.2 3 globulin, serum 2.5 [facility] 1.5-4.5 3 albumin, serum 4.5 g/dL [facility] 3.8-4.9 3 protein, total, serum 7.0 g/dL [facility] 6.0-8.5 3 calcium, serum 9.8 mg/dL [facility] 8.7-10.2 3 carbon dioxide, venous blood 25 mmol/L [facility] 20-29 3 chloride, serum 100 mmol/L [facility] 96-106 3 potassium, serum 3.8 mmol/L [facility] 3.5-5.2 3 sodium, serum 142 mmol/L [facility] 039-475 4549/06/0 3 urea nitrogen/creatinine ratio, serum 32 [facility] 9-23 High 3 creatinine, serum 0.65 mg/dL [facility] 0.57-1.00 3 urea nitrogen, blood 21 mg/dL [facility] 6-24 3 blood glucose, random 91 mg/dL [facility] 65-99 HISTORY OF MEDICATION USE Medication Status Instructions Dates Provider Indications Com ments hydrochlorothiazide 25 mg tablet active TAKE 1 TABLET BY MOUTH TWICE DAILY 05/21 Terrie Layne hydralazine 25 mg tablet active Take 1 tablet by mouth as directed as needed as directed hydralazine 25mg she can keep as a med taken when systolic bp goes high in the 150-180 range Brayan Hale MD ezetimibe 10 mg tablet active Jordana CHARLES methocarbamol 500 mg tablet active Jordana CHARLES hydrochlorothiazide 25 mg tablet completed TAKE 1 TABLET BY MOUTH EVERY DAY 12/27 - 05/21 Terrie Layne Lasix 20 mg tablet completed Take 1 tablet by mouth once a day 08/02 - 08/03 Brayan Hale MD Lasix 20 mg tablet completed TAKE 1 TABLET BY MOUTH EVERY DAY - 06/15 Brayan Hale MD metoprolol succinate 25 mg tablet extended release 24 hr active TAKE 1 TABLET BY MOUTH EVERY DAY Molly Moore Lipitor 40 mg tablet completed TAKE 1 TABL ET BY MOUTH ONCE DAILY AT NIGHT 10/20 - 10/21 Jordana CHARLES metoprolol tartrate unspecified unspecified completed - 06/15 Brayan Hale MD hydrochlorothiazide 25 mg tablet completed Take 1 tablet by mouth twice a day 09/18 - 12/27 Shania Clayton Toprol XL 25 mg tablet extended release 24 hr completed Take 1 tablet by mouth once a day TAKE 1 TABLET BY MOUTH DAILY 09/18 - Melissa Mendieta SOCIAL HISTORY Date Observation Value Provider personal history of marijuana use no Jordana Ventimiglia [facility] drug use no Jordana Ventimig amnado [facility] alcohol use, average drinks per day social Jordana Ventimiglia [facility] alcohol use yes Jordana Ventimig amando [facility] smoking status Never smoker Jordana Ventim iglia [facility] social history E&M S moking History: Ada harman has never smoked. Brayan Hale MD social history reviewed E&M revi ewed - no changes required Brayan Hale MD smoking status Never smoker Anaid Pastor drug use no Jordana Ventimig amando [facility] alcohol use, average drinks per day social Jordana Ventimiglia [facility] alcohol use yes Jordana Ventimig amanod [facility] smoking status Never smoker Jordana Ventim iglia [facility] social history E&M S moking History: Ada harman has never smoked. Brayan Hale MD social history reviewed E&M revi ewed - no changes required Brayan Hale MD smoking status Never smoker Silvana Lee and smoking status Never smoker Shania gardner social history E&M S moking History: Ada harman has never smoked. Brayan Hale MD social history reviewed E&M revi ewed - no changes required Brayan Hale MD smoking status Never smoker Kristina Augustine smoking status Never smoker Marina arango number of grandchildren Brayan Hale MD social history reviewed E&M revi ewed - no changes required Brayan Hale MD social history E&M S moking History: Ada harman has never smoked. Brayan Hale MD smoking status Never smoker Shania Kenzie gardner INSURANCE PROVIDERS Payer name Policy type / Coverage type Nadia red libertarian ID [facility] [id number] ADVANCE DIRECTIVES Name Date DISCUSSED - NO DECISION MADE TREATMENT PLAN Date Name Performer [id number],C, E cho done 05/2021 M ild LVH, EF 70% Trivial mitral regurg N ormal fucntioning aortic valve Conclusions: D efinity contrast agent used to visually enhance endocardial wall motion and c ontractility. Mild concentric left ventricular hypertrophy. Hyperdynamic left v entricular function. Normal left ventricular diastolic function. Ejection fraction is visually estimated at >70 %. N ormal appearance of the mitral valve. Trivial regurgitation of the mitral valve. N ormal appearance of the aortic valve. No evidence of hemodynamically significant aortic s tenosis by Doppler. R ight ventricular systolic pressure could not be estimated due to inadequate v isualization of the tricuspid regurgitation jet. N ormal sinus rhythm. January 26, 2023 C T angio no CAD noted Brayan Hale MD [id number],C, S table H er updated medication list for this problem includes: Metoprolol Succinate 25 Mg Tablet Extended Release 24 Hr (Metoprolol succinate) ..... Take 1 tablet by mouth every day Metoprolol Tartrate Unspecified Unspecified (Metoprolol tartrate) Brayan Hale MD [id number],S,s tarted on zetia. She has had rougly a 50 point drop in LDL down to 159. TC dropped from 298 to 237. Trigs down from 163 to 113. S he tolerates it. W ill leave her off statins since she gets myalgia. Brayan Hale MD [id number],C, N eeds titrationo study done. Has AHI of 19 when she sleeps on her back. D ecember 2021 S he had sleep study done that was partially complete. Will get report before be start her on cpap Brayan Hale MD [id number],C, H er updated medication list for this problem includes: Hydrochlorothiazide 25 Mg Tablet (Hydrochlorothiazide) ..... Take 1 tablet by mouth twice a day Metoprolol Succinate 25 Mg Tablet Extended Release 24 Hr (Metoprolol succinate) ..... Take 1 tablet by mouth every day BP today: 110/80 P rior BP: 110/70 (04/14/2022) Labs Reviewed: C reat: 0.81 (04/02/2022) C hol: 292 (09/25/2021) HDL: 64 (09/25/2021) Brayan Hale MD [id number],C, E cho done 05/2021 M ild LVH, EF 70% Trivial mitral regurg N ormal fucntioning aortic valve Conclusions: D efinity contrast agent used to visually enhance endocardial wall motion and c ontractility. Mild concentric left ventricular hypertrophy. Hyperdynamic left v entricular function. Normal left ventricular diastolic function. Ejection fraction is visually estimated at >70 %. N ormal appearance of the mitral valve. Trivial regurgitation of the mitral valve. N ormal appearance of the aortic valve. No evidence of hemodynamically significant aortic s tenosis by Doppler. R ight ventricular systolic pressure could not be estimated due to inadequate v isualization of the tricuspid regurgitation jet. N ormal sinus rhythm. Jordana Saha [facility] [id number],C, N eeds titrationo study done. Has AHI of 19 when she sleeps on her back. D ecember 2021 S he had sleep study done that was partially complete. Will get report before be start her on cpap Jordana Saha [facility] [id number],C, H er updated medication list for this problem includes: Hydrochlorothiazide 25 Mg Tablet (Hydrochlorothiazide) ..... Take 1 tablet by mouth twice a day Metoprolol Succinate 25 Mg Tablet Extended Release 24 Hr (Metoprolol succinate) ..... Take 1 tablet by mouth every day BP today: 110/80 P rior BP: 110/70 (04/14/2022) Labs Reviewed: C reat: 0.81 (04/02/2022) C hol: 292 (09/25/2021) HDL: 64 (09/25/2021) Jordana Saha [facility] [id number],S,l ast LDL was 246 on last labs. She has tried atorvastatin and was unable to tolerate d/t myalgias. She has not tried the nexletol HAS NOT STARTED NELETOL SINCE THERE IS A RISK OF TENDON RUPTURE SHE IS SEEING AN ORTO SINCE SHE HAS HAD PRIOR LEFT SHOULDER TENDON ISSUES IN THE PAST. SHE HAS ZETIA 10MG RX AT [facility] TO START ZETIA FOR CHOL AND SEE IS SHE HAS ABD BLOATING OR NOT OTHERWISE MAY BE BETTER OPTION FOR PSCSK9 INHIBITOR PRALUENT/REPATHA Jordana Saha [facility] [id number],C,H as improved signficantly since last visit with BP control and lifestyle modfication. Cornary CTA was ordered at last visit but was not done at that time. She however continues to have symptoms and given her family history of CAD and elevated lipids will plan for coronary CTA THE CTA COR WHICH WAS ORDERED IN 04/15 TO COMPARE FOR THE LUNG NODULE AND CORS SINCE SHE IS HAVING CP WAS NOT DONE W ILL BE RESCHEDULED FOR 11/02/[address] [facility] FOR THAT AND CXR Jordana Saha [facility] [id number],C, E cho done 05/2021 M ild LVH, EF 70% Trivial mitral regurg N ormal fucntioning aortic valve Conclusions: D efinity contrast agent used to visually enhance endocardial wall motion and c ontractility. Mild concentric left ventricular hypertrophy. Hyperdynamic left v entricular function. Normal left ventricular diastolic function. Ejection fraction is visually estimated at >70 %. N ormal appearance of the mitral valve. Trivial regurgitation of the mitral valve. N ormal appearance of the aortic valve. No evidence of hemodynamically significant aortic s tenosis by Doppler. R ight ventricular systolic pressure could not be estimated due to inadequate v isualization of the tricuspid regurgitation jet. N ormal sinus rhythm. Brayan Hale MD [id number],C, N eeds titrationo study done. Has AHI of 19 when she sleeps on her back. D ecember 2021 S he had sleep study done that was partially complete. Will get report before be start her on cpap Brayan Hale MD [id number],C, H er updated medication list for this problem includes: Lipitor 40 Mg Tablet (Atorvastatin) ..... Take 1 tablet by mouth once daily at night C HOL: 292 (09/25/2021) HDL: 64 (09/25/2021) Brayan Hale MD [id number],C, T he following medications were removed from the medication list: Metoprolol Tartrate Unspecified Unspecified (Metoprolol tartrate) Lasix 20 Mg Tablet (Furosemide) ..... Take 1 tablet by mouth every day Her updated medication list for this problem includes: Metoprolol Succinate 25 Mg Tablet Extended Release 24 Hr (Metoprolol succinate) ..... Take 1 tablet by mouth every day Hydrochlorothiazide 25 Mg Tablet (Hydrochlorothiazide) ..... Take 1 tablet by mouth once a day Orders: C T Chest with,without contrast (CPT-61736) 9 9215 HIGH 40-54min (CPT-69511) Brayan Hale MD [id number],S,S table H er updated medication list for this problem includes: Metoprolol Succinate 25 Mg Tablet Extended Release 24 Hr (Metoprolol succinate) ..... Take 1 tablet by mouth every day Metoprolol Tartrate Unspecified Unspecified (Metoprolol tartrate) Anaid Mathis NP [id number],C,S EEMS TO HAVE SOME POINT TENDERNESS LEFT SCAPULAR AREA SHE MAY HAVE NERVE COMPRESSION AND OR ISSUES WITH GALL BLADDER. WILL RECOMMEND SHE GET A HIDA SCAN TO EVAL THE EFRAIN FXN W/ REGARDS TO THE HEART RECOMEMDNED HER TO GET CT CORONARY ANGIOGRAM TO R/O OCCLUSIVE CAD H er updated medication list for this problem includes: Metoprolol Succinate 25 Mg Tablet Extended Release 24 Hr (Metoprolol succinate) ..... Take 1 tablet by mouth every day Metoprolol Tartrate Unspecified Unspecified (Metoprolol tartrate) Anaid Mathis NP [id number],C, N otices improvement of palpitations with Toprol XL 25mg. January 13, 2022 H ad telemonitor in April at [place] rare PACs and PVCs noted. She occasionally feels fluttering in her chest. Brayan Hale MD [id number],C, H er updated medication list for this problem includes: Metoprolol Tartrate Unspecified Unspecified (Metoprolol tartrate) Hydrochlorothiazide 25 Mg Tablet (Hydrochlorothiazide) ..... Take 1 tablet by mouth once a day Toprol Xl 25 Mg Tablet Extended Release 24 Hr (Metoprolol succinate) ..... Take 1 tablet by mouth once a day take 1 tablet by mouth daily & #13;BP today: 122/80 P rior BP: 114/74 (10/16/2021) Labs Reviewed: C reat: 0.65 (09/25/2021) C hol: 292 (09/25/2021) HDL: 64 (09/25/2021) Brayan Hale MD [id number],S,E cho done 05/2021 M ild LVH, EF 70% Trivial mitral regurg N ormal fucntioning aortic valve Conclusions: D efinity contrast agent used to visually enhance endocardial wall motion and c ontractility. Mild concentric left ventricular hypertrophy. Hyperdynamic left v entricular function. Normal left ventricular diastolic function. Ejection fraction is v isually estimated at >70 %. N ormal appearance of the mitral valve. Trivial regurgitation of the mitral valve. N ormal appearance of the aortic valve. No evidence of hemodynamically significant aortic s tenosis by Doppler. R ight ventricular systolic pressure could not be estimated due to inadequate v isualization of the tricuspid regurgitation jet. N ormal sinus rhythm. Brayan Hale MD [id number],S,D id not tolerate Lipitor because she develops leg cramps. Will try Nexotol and see iif she tolerates that. Brayan Hale MD [id number],C, S he has had non invasive testing done. Has normal LV function. Suspect there may be some component of not necesarily MVP but an NVP type of presentation. S he also has chronic pain syndrome but shoulder injury and dental work, and until the pain is adequately controlled, may not be able to manage and provide stability to BP or palpitations. R eccomend home sleep study. October 16, 2021 W ill have her do treadmill stress test at some point in time. Brayan Hale MD [id number],C, H er updated medication list for this problem includes: Metoprolol Tartrate Unspecified Unspecified (Metoprolol tartrate) Hydrochlorothiazide 25 Mg Tablet (Hydrochlorothiazide) ..... Take 1 tablet by mouth once a day Toprol Xl 25 Mg Tablet Extended Release 24 Hr (Metoprolol succinate) ..... Take 1 tablet by mouth once a day take 1 tablet by mouth daily & #13;BP today: 114/74 P rior BP: 130/82 (09/18/2021) Labs Reviewed: C reat: 0.65 (09/25/2021) C hol: 292 (09/25/2021) HDL: 64 (09/25/2021) Brayan Hale MD [id number],S, B ad lipid panel, needs to get treated, A1c elevation probably related to high Triglycerides. Brayan Hale MD [id number],C,N otices improvement of palpitations with Toprol XL 25mg. Brayan Hale MD [id number],C,N eeds titrationo study done. Has AHI of 19 when she sleeps on her back. Brayan Hale MD [id number],C,S he has had non invasive testing done. Has normal LV function. Suspect there may be some component of not necesarily MVP but an NVP type of presentation. S he also has chronic pain syndrome but shoulder injury and dental work, and until the pain is adequately controlled, may not be able to manage and provide stability to BP or palpitations. R eccomend home sleep study. Brayan Hale MD [id number],C,A dd toperol xl 25mg. See how she tolerates minimal dose of BB. May be some component of mitral valve prolapse. Brayan Hale MD [id number],C,A dd HCTZ 25mg daily. Was on it before and noted improvement in pressures and leg edema. She reprots that she has been seen by vein specialist before and has been diiagnosed with venous issues involving both legs which may be cause of leg edema and has worn compression Brayan Hale MD [id number],S,Recheck lipid panel. Brayan Hale MD Cardiology:CAN GET T HE CT LD DOEN TO EVAL THE FINDINGS FROM PARENCHYMAL SCARRING T he patient is recommended to have low dose CT scan for lung cancer screening. Has been counseled regarding the importance of tobacco cessation and abstinence. Shared decision making during this office visit included discussion of the benefits and harms of screening, possible future recommendations of follow-up diagnostic testing, and total amount of radiation exposure. The patient was recommended to have annual low dose CT scan for lung cancer screening and is willing to undergo diagnosis and treatment. N EEDS COMPARISION TTHE CT DONE 11/02/2022 Bascom Yifan [facility] Cardiology:had leg v ein ablation done in the right leg and had some done on the left leg [facility] ricky guzman as improved the legs with the venous reflux treatment Bascom Yifan [facility] Cardiology: N eeds titrationo study done. Has AHI of 19 when she sleeps on her back. D ecember 2021 S he had sleep study done that was partially complete. Will get report before be start her on cpap Bascom Yifan [facility] Cardiology:rare inte rmittent palptiaitons T his visit has been a part of the consistent, comprehensive, and ongoing management of the chronic medical condition(s) listed above for the patient. Her updated medication list for this problem includes: Metoprolol Succinate 25 Mg Tablet Extended Release 24 Hr (Metoprolol succinate) ..... Take 1 tablet by mouth every day Bascom Yifan [facility] Cardiology:Last LDL 159 and trig 113 H er updated medication list for this problem includes: Ezetimibe 10 Mg Tablet (Ezetimibe) Jordanakushal Saha [facility] Cardiology: H er updated medication list for this problem includes: Metoprolol Succinate 25 Mg Tablet Extended Release 24 Hr (Metoprolol succinate) ..... Take 1 tablet by mouth every day Jordanakushal Saha [facility] Cardiology:BP today 122/72 T his visit has been a part of the consistent, comprehensive, and ongoing management of the chronic medical condition(s) listed above for the patient. Jordanakushal Solizspenserjere [facility] Cardiology: E cho done 05/2021 M ild LVH, EF 70% Trivial mitral regurg N ormal fucntioning aortic valve Conclusions: D efinity contrast agent used to visually enhance endocardial wall motion and c ontractility. Mild concentric left ventricular hypertrophy. Hyperdynamic left v entricular function. Normal left ventricular diastolic function. Ejection fraction is v isually estimated at >70 %. N ormal appearance of the mitral valve. Trivial regurgitation of the mitral valve. N ormal appearance of the aortic valve. No evidence of hemodynamically significant aortic s tenosis by Doppler. R ight ventricular systolic pressure could not be estimated due to inadequate v isualization of the tricuspid regurgitation jet. N ormal sinus rhythm. January 26, 2023 C T angio no CAD noted Brayan Hale MD Cardiology: S table H er updated medication list for this problem includes: Metoprolol Succinate 25 Mg Tablet Extended Release 24 Hr (Metoprolol succinate) ..... Take 1 tablet by mouth every day Metoprolol Tartrate Unspecified Unspecified (Metoprolol tartrate) Brayan Hale MD Cardiology:started o n zetia. She has had rougly a 50 point drop in LDL down to 159. TC dropped from 298 to 237. Trigs down from 163 to 113. S he tolerates it. W ill leave her off statins since she gets myalgia. Brayan Hale MD Cardiology: N eeds titrationo study done. Has AHI of 19 when she sleeps on her back. D ecember 2021 S he had sleep study done that was partially complete. Will get report before be start her on cpap Brayan Hale MD Cardiology: H er updated medication list for this problem includes: Hydrochlorothiazide 25 Mg Tablet (Hydrochlorothiazide) ..... Take 1 tablet by mouth twice a day Metoprolol Succinate 25 Mg Tablet Extended Release 24 Hr (Metoprolol succinate) ..... Take 1 tablet by mouth every day BP today: 110/80 P rior BP: 110/70 (04/14/2022) Labs Reviewed: C reat: 0.81 (04/02/2022) C hol: 292 (09/25/2021) HDL: 64 (09/25/2021) Brayan Hale MD Cardiology: E cho done 05/2021 M ild LVH, EF 70% Trivial mitral regurg N ormal fucntioning aortic valve Conclusions: D efinity contrast agent used to visually enhance endocardial wall motion and c ontractility. Mild concentric left ventricular hypertrophy. Hyperdynamic left v entricular function. Normal left ventricular diastolic function. Ejection fraction is v isually estimated at >70 %. N ormal appearance of the mitral valve. Trivial regurgitation of the mitral valve. N ormal appearance of the aortic valve. No evidence of hemodynamically significant aortic s tenosis by Doppler. R ight ventricular systolic pressure could not be estimated due to inadequate v isualization of the tricuspid regurgitation jet. N ormal sinus rhythm. Jordana Saha [facility] Cardiology: N eeds titrationo study done. Has AHI of 19 when she sleeps on her back. D ecember 2021 S he had sleep study done that was partially complete. Will get report before be start her on cpap Jordana Saha [facility] Cardiology: H er updated medication list for this problem includes: Hydrochlorothiazide 25 Mg Tablet (Hydrochlorothiazide) ..... Take 1 tablet by mouth twice a day Metoprolol Succinate 25 Mg Tablet Extended Release 24 Hr (Metoprolol succinate) ..... Take 1 tablet by mouth every day BP today: 110/80 P rior BP: 110/70 (04/14/2022) Labs Reviewed: C reat: 0.81 (04/02/2022) C hol: 292 (09/25/2021) HDL: 64 (09/25/2021) Jordana Saha [facility] Cardiology:last LDL was 246 on last labs. She has tried atorvastatin and was unable to tolerate d/t myalgias. She has not tried the nexletol HAS NOT STARTED NELETOL SINCE THERE IS A RISK OF TENDON RUPTURE SHE IS SEEING AN ORTO SINCE SHE HAS HAD PRIOR LEFT SHOULDER TENDON ISSUES IN THE PAST. SHE HAS ZETIA 10MG RX AT [facility] OK TO START ZETIA FOR CHOL AND SEE IS SHE HAS ABD BLOATING OR NOT OTHERWISE MAY BE BETTER OPTION FOR PSCSK9 INHIBITOR PRALUENT/REPATHA Jordana Saha [facility] Cardiology:Has impro regi signficantly since last visit with BP control and lifestyle modfication. Cornary CTA was ordered at last visit but was not done at that time. She however continues to have symptoms and given her family history of CAD and elevated lipids will plan for coronary CTA THE CTA COR WHICH WAS ORDERED IN 04/15 TO COMPARE FOR THE LUNG NODULE AND CORS SINCE SHE IS HAVING CP WAS NOT DONE W ILL BE RESCHEDULED FOR 11/02/[address] [facility] FOR THAT AND CXR Jordana Saha [facility] Cardiology: E cho done 05/2021 M ild LVH, EF 70% Trivial mitral regurg N ormal fucntioning aortic valve Conclusions: D efinity contrast agent used to visually enhance endocardial wall motion and c ontractility. Mild concentric left ventricular hypertrophy. Hyperdynamic left v entricular function. Normal left ventricular diastolic function. Ejection fraction is v isually estimated at >70 %. N ormal appearance of the mitral valve. Trivial regurgitation of the mitral valve. N ormal appearance of the aortic valve. No evidence of hemodynamically significant aortic s tenosis by Doppler. R ight ventricular systolic pressure could not be estimated due to inadequate v isualization of the tricuspid regurgitation jet. N ormal sinus rhythm. Brayan Hale MD Cardiology: N eeds titrationo study done. Has AHI of 19 when she sleeps on her back. D ecember 2021 S he had sleep study done that was partially complete. Will get report before be start her on cpap Brayan Hale MD Cardiology: H er updated medication list for this problem includes: Lipitor 40 Mg Tablet (Atorvastatin) ..... Take 1 tablet by mouth once daily at night C HOL: 292 (09/25/2021) HDL: 64 (09/25/2021) Brayan Hale MD Cardiology: T he following medications were removed from the medication list: Metoprolol Tartrate Unspecified Unspecified (Metoprolol tartrate) Lasix 20 Mg Tablet (Furosemide) ..... Take 1 tablet by mouth every day Her updated medication list for this problem includes: Metoprolol Succinate 25 Mg Tablet Extended Release 24 Hr (Metoprolol succinate) ..... Take 1 tablet by mouth every day Hydrochlorothiazide 25 Mg Tablet (Hydrochlorothiazide) ..... Take 1 tablet by mouth once a day Orders: C T Chest with,without contrast (CPT-02696) 9 9215 HIGH 40-54min (CPT-27180) Brayan Hale MD Cardiology:Stable H er updated medication list for this problem includes: Metoprolol Succinate 25 Mg Tablet Extended Release 24 Hr (Metoprolol succinate) ..... Take 1 tablet by mouth every day Metoprolol Tartrate Unspecified Unspecified (Metoprolol tartrate) Anaid Mathis NP Cardiology:SEEMS TO HAVE SOME POINT TENDERNESS LEFT SCAPULAR AREA SHE MAY HAVE NERVE COMPRESSION AND OR ISSUES WITH GALL BLADDER. WILL RECOMMEND SHE GET A HIDA SCAN TO EVAL THE GB FXN W/ REGARDS TO THE HEART RECOMEMDNED HER TO GET CT CORONARY ANGIOGRAM TO R/O OCCLUSIVE CAD H er updated medication list for this problem includes: Metoprolol Succinate 25 Mg Tablet Extended Release 24 Hr (Metoprolol succinate) ..... Take 1 tablet by mouth every day Metoprolol Tartrate Unspecified Unspecified (Metoprolol tartrate) Anaid Mathis NP Cardiology: N harriett improvement of palpitations with Toprol XL 25mg. January 13, 2022 H ad telemonitor in April at [facility] rare PACs and PVCs noted. She occasionally feels fluttering in her chest. Brayan Hale MD Cardiology: H er updated medication list for this problem includes: Metoprolol Tartrate Unspecified Unspecified (Metoprolol tartrate) Hydrochlorothiazide 25 Mg Tablet (Hydrochlorothiazide) ..... Take 1 tablet by mouth once a day Toprol Xl 25 Mg Tablet Extended Release 24 Hr (Metoprolol succinate) ..... Take 1 tablet by mouth once a day take 1 tablet by mouth daily BP today: 122/80 P rior BP: 114/74 (10/16/2021) Labs Reviewed: C reat: 0.65 (09/25/2021) C hol: 292 (09/25/2021) HDL: 64 (09/25/2021) Brayan Hale MD Cardiology:Echo done 05/2021 M ild LVH, EF 70% Trivial mitral regurg N ormal fucntioning aortic valve Conclusions: D efinity contrast agent used to visually enhance endocardial wall motion and c ontractility. Mild concentric left ventricular hypertrophy. Hyperdynamic left v entricular function. Normal left ventricular diastolic function. Ejection fraction is v isually estimated at >70 %. N ormal appearance of the mitral valve. Trivial regurgitation of the mitral valve. N ormal appearance of the aortic valve. No evidence of hemodynamically significant aortic s tenosis by Doppler. R ight ventricular systolic pressure could not be estimated due to inadequate v isualization of the tricuspid regurgitation jet. N ormal sinus rhythm. Brayan Hale MD Cardiology:Did not t olerate Lipitor because she develops leg cramps. Will try Nexotol and see iif she tolerates that. Brayan Hale MD Cardiology: S he has had non invasive testing done. Has normal LV function. Suspect there may be some component of not necesarily MVP but an NVP type of presentation. S he also has chronic pain syndrome but shoulder injury and dental work, and until the pain is adequately controlled, may not be able to manage and provide stability to BP or palpitations. R lottie home sleep study. & #13;October 16, 2021 W ill have her do treadmill stress test at some point in time. Brayan Hale MD Cardiology: H er updated medication list for this problem includes: Metoprolol Tartrate Unspecified Unspecified (Metoprolol tartrate) Hydrochlorothiazide 25 Mg Tablet (Hydrochlorothiazide) ..... Take 1 tablet by mouth once a day Toprol Xl 25 Mg Tablet Extended Release 24 Hr (Metoprolol succinate) ..... Take 1 tablet by mouth once a day take 1 tablet by mouth daily BP today: 114/74 P rior BP: 130/82 (09/18/2021) Labs Reviewed: C reat: 0.65 (09/25/2021) C hol: 292 (09/25/2021) HDL: 64 (09/25/2021) Brayan Hale MD Cardiology: B ad lipid panel, needs to get treated, A1c elevation probably related to high Triglycerides. Brayan Hale MD Cardiology:Notices i mprovement of palpitations with Toprol XL 25mg. Brayan Hale MD Cardiology:Needs tit rationo study done. Has AHI of 19 when she sleeps on her back. Brayan Hale MD Cardiology:She has h ad non invasive testing done. Has normal LV function. Suspect there may be some component of not necesarily MVP but an NVP type of presentation. S he also has chronic pain syndrome but shoulder injury and dental work, and until the pain is adequately controlled, may not be able to manage and provide stability to BP or palpitations. R eccomend home sleep study. Brayan Hale MD Cardiology:Add toper ol xl 25mg. See how she tolerates minimal dose of BB. May be some component of mitral valve prolapse. Brayan Hale MD Cardiology:Add HCTZ 25mg daily. Was on it before and noted improvement in pressures and leg edema. She reprots that she has been seen by vein specialist before and has been diiagnosed with venous issues involving both legs which may be cause of leg edema and has worn compression Brayan Hale MD Cardiology:Recheck lipid panel. Brayan Hale MD Date Name Low Dose Lung CT EKG LIPID PANEL CT Chest with,withou t contrast HEPATIC FUNCTION [place] EL LIPID PANEL CT Chest with,withou t contrast Creatinine, Serum CT Angio Coronaries Sleep Study - split night Sleep Study - split night Sleep Study - split night Stress Routine Sleep Study Titratio n HEMOGLOBIN A1c LIPID PANEL COMPREHENSIVE METABO LIC PANEL, W/EGFR Sleep Study Home HISTORY OF PROCEDURES Procedure Date Procedure Name Provider Procedure Notes S tatus Complex e/m visit ad d on Brayan Hale MD completed Counseling LDCT Brayan Hale MD NEEDS COMPARISION TTHE CT DONE 11/02/2022 completed EKG Brayan Hale MD completed EKG Brayan Hale MD completed EKG Brayan Hale MD completed EKG Brayan Hale MD completed EKG Brayan Hale MD completed EKG Brayan Hale MD completed EKG Brayan Hale MD completed
--- OUTSIDE RECORDS SUMMARY | 2024-07-24 17:38 | XMS_ITS | Encounter Summary ---
Author Organization [facility] Healthcare Address [address] [place] [address] Care Team Providers Care Passenger Booking Clerk Name Role Phone Erica Carlisle MD Primary Care Provider [phone] Prince Osei MD Primary Care Provider [phone] Nhi Covarrubias MD PhD Unavailable [phone] Encounter Details Date Type Department Care Team (Late st Contact Info) Description 07/22/2022 Telephone 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 Author CCM Chronic Pain Care Plan Chronic Care Management No change(06/11 3:12 PM RENT CONTROL OFFICE MANAGER) Sagar Gibson, RN Note: Problem: Chronic Pain Goals: 1. Minimize further functional decline 2. Maximize quality of life 3. Control pain Strategies: - Activity/exercise program recommendation - Conservative stepwise pain medicine strategy with multi-disciplinary approach - Recommend healthy lifestyle strategies and compensatory methods as needed documented as of this encounter Visit Diagnoses Not on filedocumented in this encounter Care Teams Passenger Booking Clerk Relationship Specialty Start Date End Date Erica Carlisle MD PCP - General Internal Medicine 07/14/22 09/30/22 Prince Osei MD PCP - General Family Practice 10/01/22 Nhi Covarrubias MD PhD [address] [place] [address] Anesthesiologist Anesthesiology 10/20/22 documented as of this encounter
--- OUTSIDE RECORDS SUMMARY | 2024-07-24 17:38 | XMS_ITS | Encounter Summary ---
Author Organization [facility] Address [address] [place] [address] Care Team Providers Care Javascript Front End Developer Name Role Phone Shad Waldrop DO Primary Care Provider [phone] Steve Cole MD Unavailable [phone] Chapincito Wyatt MD Primary Care Provider [phone] Prince Osei MD Primary Care Provider [phone] Encounter Details Date Type Department Care Team (Late Contact Info) Description 01/21/2022 Lab Requisition [facility] [address] [place] [id number] Shaji Rhoades MD [address] [place] [address] Social History Tobacco Use Types Packs/Day Years Used Date Smoking Tobacco: Never Smokeless Tobacco: Never Alcohol Use Standard Drinks/Week Comments Not Asked 0 (1 standard drink = 0.6 oz pur e alcohol) Sex and Gender Information Value Date Recorded Sex Assigned at Not on file Gender Identity Not on file Sexual Orientation Not on file documented as of this encounter Plan of Treatment Upcoming Encounters Date Type Department Care Team (Late Contact Info) Description 10/18/2024 11:00 AM CDT Appointment [facility] [address] [place] [address] 10/18/2024 11:30 AM CDT Office Visit [facility] - General Surgery [address] [place] [phone] Mary Alice Puente MD [address] [facility] [address] [place] [phone] documented as of this encounter Procedures Procedure Name Priority Date/Time Associated Diagnosis Comments DERMATOPATHOLOGY Routine 01/20/2022 12:0 0 AM CDT documented in this encounter Results * DERMATOPATHOLOGY (01/20/2022 12:00 AM CDT) Case Report Dermatopathology Report Case: [id number] Authorizing Provider: Shaji Rhoades MD Collected: 01/20/2022 12:00 AM Ordering Location: [facility] Received: 01/21/2022 11:56 AM Pathologist: Hever Hayes MD Specimens: A) - Skin, left medial orbit below eyebrow B) - Skin, right side nose near orbit 2 4:04 PM CDT DERMATOPATHOLOGY LABORATORY Final Diagnosis Specimen A. SKIN, left medial orbit below eyebrow: CHRONIC PERIFOLLICULITIS (L73.8) (see microscopic description) Specimen B. 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 AR 2 4:04 PM CDT DERMATOPATHOLOGY LABORATORY Gross Description Specimen A: Received is one formalin filled container labeled with the patient's name and designated left medial orbit below eyebrow. The specimen consists of a punch biopsy measuring 2x2x2 mm. Jar 0. Specimen B: Received is one formalin filled container labeled with the patient's name and designated right side nose near orbit. The specimen consists of a punch biopsy measuring 3x2x2 mm. Jar 0. 2 4:04 PM CDT DERMATOPATHOLOGY LABORATORY Microscopic Description Specimen A. SKIN, left medial orbit below eyebrow: Sections show a perifollicular lymphohistiocytic infiltrate. Additional deeper sections were obtained and reviewed. Specimen B. SKIN, right side nose near orbit: The epidermis is largely unremarkable. A mild perivascular and perifollicular inflammatory infiltrate composed predominantly of lymphocytes is noted in the upper and mid dermis. Dilated thin-walled superficial dermal blood vessels are observed. Solar elastosis is present. Additional deeper sections were obtained and reviewed. 2 4:04 PM CDT DERMATOPATHOLOGY LABORATORY Disclaimer An external and internal positive and negative controls are appropriate for the histochemical, immunohistochemical and immunofluorescence stain(s) in this case (if any), except where stated explicitly. The performance characteristics of the stain(s) cited in this report were developed and its performance characteristic determined by the Dermatopathology Laboratory at [facility], directed by Dr. Jacki Hayes. These tests need not be, and therefore are not, approved by the [place] Food and Drug Administration. The tests are used for clinical purposes. Billing Codes Specimen Charges Stain Charges 61703 75070 1 1 2 4:04 PM CDT DERMATOPATHOLOGY LABORATORY Embedded Images 2 4:04 PM CDT DERMATOPATHOLOGY LABORATORY Pathology/Cytology TISSUE SPECIMEN FROM SKIN / Unknown 01/20/2022 01/21/2022 11:56 AM CDT Miscellaneous samples (specimen) TISSUE SPECIMEN FROM SKIN / Unknown 01/20/2022 01/21/2022 11:56 AM CDT Shaji Rhoades MD LAB - PATHOLOGY/CYTO LOGY ORDERABLES DERMATOPATHOLOGY LABORATORY [facility] - Department of Dermatology [facility] [address] [place] [address], [address] [phone] documented in this encounter Visit Diagnoses Not on filedocumented in this encounter Care Teams Javascript Front End Developer Relationship Specialty Start Date End Date Shad Waldrop DO [address] [place], [place] [id number] PCP - General 10/05/21 10/12/22 Chapincito Wyatt MD [address] [place] [address] OF PULMONARY/[place] [address] PCP - General Pulmonary Disease 11/08/22 01/05/23 Prince Osei MD [address] [place] [id number] PCP - General Family Medicine 01/06/23 Steve Cole MD [address] [address] Internal Medicine 10/13/22 documented as of this encounter
--- OUTSIDE RECORDS SUMMARY | 2024-07-24 17:39 | XMS_ITS | Clinical Summary ---
Author Organization [facility] Address [address] [place] [address] Phone Care Team Providers Care Heavy Duty Diesel Mechanic Name Role Phone Shad Waldrop DO Primary Care Provider [phone] Medications No known medications Active Problems No known active problems Family History Medical History Relation Name Comments Other Brother brain tumor - p ossibly hemangioma Seizures Brother months old, gr andma seizures Heart murmur Father Hodgkin's lymphoma Grandson 2 Heart murmur Half-Brother Diabetes Maternal Aunt 1 Diabetes Maternal Aunt 2 Diabetes Maternal Aunt 3 Breast Cancer Maternal Grandmother Diabetes Maternal Grandmother Prostate Cancer Maternal Uncle 1 unsure a ge of onset Autism spectrum disorder Nephew 1 Asp ergers Intellectual Disability Nephew 1 Learning Disabilities Nephew 1 Diabetes Nephew 2 Intellectual Disability Nephew 2 Learning Disabilities Nephew 2 Heart Surgery Paternal Grandfather Alzheimer's Disease Paternal Grandmother Relation Name Status Comments Brother (Age 50) Daughter Alive Father Alive Grandchild x3 Alive Daughter's chil dren Grandson 1 Alive Grandson 2 Alive Half-Brother Alive paternal Half-Sister Alive paternal Maternal Aunt 1 (Age 55) Maternal Aunt 2 (Age 55) Maternal Aunt 3 (Age 55) Maternal Grandfather unknown health information Maternal Grandmother (Age 80) Maternal Uncle 1 Alive Maternal Uncle 2 (Age 65) Mother (Age 62) cause of d eath: complication from spinal injected medication Nephew 1 Alive Nephew 2 Alive Niece/Nephew x6 Alive paternal half-s ister's children Paternal Grandfather cause o f : heart surgery complication Paternal Grandmother (Age 80) Son 1 Alive Son 2 Alive Social History Tobacco Use Types Packs/Day Years Used Date Smoking Tobacco: Never Smokeless Tobacco: Never Alcohol Use Standard Drinks/Week Comments Yes 0 (1 standard drink = 0.6 oz pur e alcohol) 1-2 per month Comments Unknown Sex and Gender Information Value Date Recorded Sex Assigned at Not on file Legal Sex Female 1:19 PM CDT Gender Identity Not on file Sexual Orientation Not on file Plan of Treatment Health Maintenance Due Date Last Done Comments PAP SMEAR 1992 COLORECTAL SCREENING 2007 Colorectal Cancer Screening 2007 FIT-DNA Q 3 years 2007 FIT/FOBT Q 1 year 2007 Flex Sig/CT Colonography Q 5 years 2007 BREAST CANCER SCREENING 10/19/2022 10/20/19, 10/19/2021, 10/08/2021, Additional history exists INFLUENZA VACCINE (#1) 2023 , 12/16/2018, 01/16/2018, Additional history exists DTAP/TDAP/TD VACCINES (2 - T d or Tdap) 12/22/2023 12/21/2013 RSV VACCINE (60+ or ) (1 - 1-dose 75+ series) 2037 ZOSTER VACCINE Completed 07/21/2018, 05/22/2018 Insurance [facility] PREFERRED Care Teams Heavy Duty Diesel Mechanic Relationship Specialty Start Date End Date Shad Waldrop DO [address] [facility] [address] [place] [phone] PCP - General Internal Medicine 10/27/21
--- OUTSIDE RECORDS SUMMARY | 2024-07-24 17:39 | XMS_ITS | Encounter Summary ---
Author Organization [facility] Healthcare Address [address] [place] [address] Care Team Providers Care Personal Financial Representative Name Role Phone Erika Blackmon MD Primary Care Provider Jordon Fields MD Primary Care Provider [phone] Shad Waldrop DO Primary Care Provider [phone] Erica Carlisle MD Primary Care Provider [phone] Prince Osei MD Primary Care Provider [phone] Nhi Covarrubias MD PhD Unavailable [phone] Encounter Details Date Type Department Care Team (Late st Contact Info) Description 01/22/2021 Telephone [facility] Radiology 1 [place] [address] [place] [address] [place] [address] Social History Tobacco Use Types Packs/Day Years Used Date Smoking Tobacco: Never Smokeless Tobacco: Never Alcohol Use Standard Drinks/Week Comments Yes 0 (1 standard drink = 0.6 oz pur e alcohol) RARE Comments Unknown Sex and Gender Information Value Date Recorded Sex Assigned at Not on file Legal Sex Female 10:04 PM VACUUM METALIZING SUPERVISOR Gender Identity Not on file Sexual Orientation Straight 05/22/2020 6: 40 PM VACUUM METALIZING SUPERVISOR documented as of this encounter Plan of Treatment Scheduled Procedures Name Priority Associated Diagnoses Date/Ti me COLONOSCOPY Encounter for screening for malignant neoplasm of colon documented as of this encounter Visit Diagnoses Not on filedocumented in this encounter Care Teams Personal Financial Representative Relationship Specialty Start Date End Date Erika Blackmon MD [address] [place] [address] PCP - General Family Medicine 05/19/20 06/21/21 Jordon Fields MD [address] [facility] [address] [place] [address] PCP - General Internal Medicine 06/22/21 09/24/21 Shad Waldrop DO [address] [facility] [address] [place] [address] PCP - General Internal Medicine 09/25/21 07/13/22 Erica Carlisle MD [address] [facility] [address] [place] [address] PCP - General Internal Medicine 07/14/22 09/30/22 Prince Osei MD [address] [facility] [address] [place] [address] PCP - General Family Practice 10/01/22 Nhi Covarrubias MD PhD [address] [place] [address] Anesthesiologist Anesthesiology 10/20/22 documented as of this encounter
--- OUTSIDE RECORDS SUMMARY | 2024-07-24 17:39 | XMS_ITS | Encounter Summary ---
Author Organization [facility] Healthcare Address [address] [facility] [place] [address] Care Team Providers Care Staff Sonographer Name Role Phone Shad Waldrop Primary Care Provider [phone] Erica Carlisle MD Primary Care Provider [phone] Prince Osei MD Primary Care Provider [phone] Nhi Covarrubias MD PhD Unavailable [phone] Reason for Visit * Reason Onset Date Comments Appointment 04/14/2022 Encounter Details Date Type Department Care Team (Late st Contact Info) Description 04/14/2022 Telephone [facility] [place] [facility] [address] [facility] Advanced Medicine [address] [place] [address] Nhi Covarrubias MD PhD [address] [place] [address] Appointment Social History Tobacco Use Types Packs/Day Years [...] on file Legal Sex Female 10:04 PM DEAN OF MEN Gender Identity Not on file Sexual Orientation Straight 05/22/2020 6: 40 PM DEAN OF MEN documented as of this encounter Functional Status documented as of this encounter Plan of Treatment Scheduled Procedures Name Priority Associated Diagnoses Date/Ti me COLONOSCOPY Encounter for screening for malignant neoplasm of colon documented as of this encounter Goals Goal Patient Goal Type Associated Problems Recent Progress Patient-Stated? Author CCM Chronic Pain Care Plan Chronic Care Management No change(06/11 3:12 PM DEAN OF MEN) No Sagar Rich RN Note: Problem: Chronic Pain Goals: 1. Minimize further functional decline 2. Maximize quality of life 3. Control pain Strategies: - Activity/exercise program recommendation - Conservative stepwise pain medicine strategy with multi-disciplinary approach - Recommend healthy lifestyle strategies and compensatory methods as needed documented as of this encounter Visit Diagnoses Not on filedocumented in this encounter Care Teams Staff Sonographer Relationship Specialty Start Date End Date Shad Waldrop DO PCP - General Internal Medicine 09/25/21 07/13/22 Erica Carlisle MD PCP - General Internal Medicine 07/14/22 09/30/22 Prince Osei MD PCP - General Family Practice 10/01/22 Nhi Covarrubias MD PhD [address] [place] [address] Anesthesiologist Anesthesiology 10/20/22 documented as of this encounter
--- OUTSIDE RECORDS SUMMARY | 2024-07-24 17:39 | XMS_ITS | Encounter Summary ---
Author Organization [facility] Healthcare Address [address] [place] [address] Care Team Providers Care Sample Carrier Name Role Phone Prince Osei MD Primary Care Provider [phone] Nhi Covarrubias MD PhD Unavailable [phone] Encounter Details Date Type Department Care Team (Late st Contact Info) Description 05/01/2024 Telephone [facility] Center at the [place] [facility] [address] [facility] Advanced Medicine [address] [place] [address] Nhi Covarrubias MD PhD [address] [place] [address] Social History Tobacco Use Types Packs/Day Years Used Date Smoking Tobacco: Never Smokeless Tobacco: Never Alcohol Use Standard Drinks/Week Comments Yes 0 (1 standard drink = 0.6 oz pur e alcohol) RARE AUDIT-C Answer Date Recorded Q1: How often do you have a drink containing alc ohol? 2-4 times a month 04/09/2024 Q2: How many drinks containi ng alcohol do you have on a typical day when you are drinking? 1 or 2 04/09/2024 Q3: How often do you have si x or more drinks on one occasion? Never 04/09/2024 Hunger Vital Sign Answer Date Recorded Within the past 12 months, y ou worried that your food would run out before you got the money to buy more. Never true 02/23/20 24 Within the past 12 months, t he food you bought just didn't last and you didn't have money to get more. Never true 02/23/2024 Personal Safety Answer Date Recorded Have you ever been in or are you currently in a harmful physical or emotional relationship or is someone making you feel afraid or unsafe? Denies 04/09/2024 Comments No Sex and Gender Information Value Date Recorded Sex Assigned at Not on file Legal Sex Female 10:04 PM FOUNTAIN PEN NIBS INSPECTOR Gender Identity Not on file Sexual Orientation Straight 05/22/2020 6: 40 PM FOUNTAIN PEN NIBS INSPECTOR documented as of this encounter Plan of Treatment Scheduled Procedures Name Priority Associated Diagnoses Date/Ti mi COLONOSCOPY Encounter for screening for malignant neoplasm of colon documented as of this encounter Goals Goal Patient Goal Type Associated Problems Recent Progress Patient-Stated? Author CCM Chronic Pain Care Plan Chronic Care Management No change(06/11 3:12 PM FOUNTAIN PEN NIBS INSPECTOR) No Sagar Rich RN Note: Problem: Chronic Pain Goals: 1. Minimize further functional decline 2. Maximize quality of life 3. Control pain Strategies: - Activity/exercise program recommendation - Conservative stepwise pain medicine strategy with multi-disciplinary approach - Recommend healthy lifestyle strategies and compensatory methods as needed documented as of this encounter Visit Diagnoses Not on filedocumented in this encounter Care Teams Sample Carrier Relationship Specialty Start Date End Date Prince Osei MD PCP - General Family Practice 10/01/22 Nhi Covarrubias MD PhD [address] [place] [address] Anesthesiologist Anesthesiology 10/20/22 documented as of this encounter
--- OUTSIDE RECORDS SUMMARY | 2024-07-24 17:39 | XMS_ITS | Encounter Summary ---
Author Organization [facility] Healthcare Address [address] [place] [address] Care Team Providers Care Engineering And Operations Director Name Role Phone Erika Blackmon MD Primary Care Provider Jordon Fields MD Primary Care Provider [phone] Shad Waldrop DO Primary Care Provider [phone] Erica Carlisle MD Primary Care Provider [phone] Prince Osei MD Primary Care Provider [phone] Nhi Covarrubias MD PhD Unavailable [phone] Encounter Details Date Type Department Care Team (Late st Contact Info) Description 03/04/2021 Telephone [facility] Pre Anesthesia Testing [address] [place] [address] Anayeli Johnson RN Social History Tobacco Use Types Packs/Day Years Used Date Smoking Tobacco: Never Smokeless Tobacco: Never Alcohol Use Standard Drinks/Week Comments Yes 0 (1 standard drink = 0.6 oz pur e alcohol) RARE AUDIT-C Answer Date Recorded Q1: How often do you have a drink containing alc ohol? 2-4 times a month 01/29/2021 Q2: How many drinks containi ng alcohol do you have on a typical day when you are drinking? 1 or 2 01/29/2021 Q3: How often do you have si x or more drinks on one occasion? 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 Author CCM Chronic Pain Care Plan Chronic Care Management No change(06/11 3:12 PM PILOT BOAT CAPTAIN) Sagar Gibson RN Note: Problem: Chronic Pain Goals: 1. Minimize further functional decline 2. Maximize quality of life 3. Control pain Strategies: - Activity/exercise program recommendation - Conservative stepwise pain medicine strategy with multi-disciplinary approach - Recommend healthy lifestyle strategies and compensatory methods as needed documented as of this encounter Visit Diagnoses Not on filedocumented in this encounter Care Teams Engineering And Operations Director Relationship Specialty Start Date End Date Erika Blackmon MD [address] [place] [address] PCP - General Family Medicine 05/19/20 06/21/21 Jordon Fields MD [address] [place] [address] PCP - General Internal Medicine 06/22/21 09/24/21 Shad Waldrop DO [address] [place] [address] PCP - General Internal Medicine 09/25/21 07/13/22 Erica Carlisle MD [address] [place] [address] PCP - General Internal Medicine 07/14/22 09/30/22 Prince Osei MD [address] [place] [address] PCP - General Family Practice 10/01/22 Nhi Covarrubias MD PhD [address] [place] [address] Anesthesiologist Anesthesiology 10/20/22 documented as of this encounter
--- OUTSIDE RECORDS SUMMARY | 2024-07-24 17:39 | XMS_ITS | Encounter Summary ---
Author Organization [facility] Healthcare Address [address] [place] [address] Care Team Providers Care Global Logistics Analyst Name Role Phone Jordon Fields MD Primary Care Provider [phone] Shad Waldrop DO Primary Care Provider [phone] Erica Carlisle MD Primary Care Provider [phone] Prince Osei MD Primary Care Provider [phone] Nhi Covarrubias MD PhD Unavailable [phone] Encounter Details Date Type Department Care Team (Late st Contact Info) Description 08/26/2021 Telephone [facility] Center at the [place] [facility] [address] [facility] Advanced Medicine [address] [place], [place] [id number] Daljit Smart MD [address] [facility] [address] [place] [address] Social History Tobacco Use Types Packs/Day Years Used Date Smoking Tobacco: Never Smokeless Tobacco: Never Alcohol Use Standard Drinks/Week Comments Yes 0 (1 standard drink = 0.6 oz pur e alcohol) RARE AUDIT-C Answer Date Recorded Q1: How often do you have a drink containing alc ohol? 2-4 times a month 03/27/2021 Q2: How many drinks containi ng alcohol do you have on a typical day when you are drinking? 1 or 2 03/27/2021 Q3: How often do you have si x or more drinks on one occasion? Never 03/27/2021 Comments No Sex and Gender Information Value Date Recorded Sex Assigned at Not on file Legal Sex Female 10:04 PM MARKER SHIPMENTS Gender Identity Not on file Sexual Orientation Straight 05/22/2020 6: 40 PM MARKER SHIPMENTS documented as of this encounter Plan of Treatment Scheduled Procedures Name Priority Associated Diagnoses Date/Ti me COLONOSCOPY Encounter for screening for malignant neoplasm of colon documented as of this encounter Goals Goal Patient Goal Type Associated Problems Recent Progress Patient-Stated? Author CCM Chronic Pain Care Plan Chronic Care Management No change(06/11 3:12 PM MARKER SHIPMENTS) No Sagar Rich RN Note: Problem: Chronic Pain Goals: 1. Minimize further functional decline 2. Maximize quality of life 3. Control pain Strategies: - Activity/exercise program recommendation - Conservative stepwise pain medicine strategy with multi-disciplinary approach - Recommend healthy lifestyle strategies and compensatory methods as needed documented as of this encounter Visit Diagnoses Not on filedocumented in this encounter Care Teams Global Logistics Analyst Relationship Specialty Start Date End Date Jordon Fields MD [address] [address] PCP - General Internal Medicine 06/22/21 09/24/21 Shad Waldrop DO [address] [address] PCP - General Internal Medicine 09/25/21 07/13/22 Erica Carlisle MD [address] [address] PCP - General Internal Medicine 07/14/22 09/30/22 Prince Osei MD [address] [address] PCP - General Family Practice 10/01/22 Nhi Covarrubias MD PhD [address] [place] [address] Anesthesiologist Anesthesiology 10/20/22 documented as of this encounter
== END 2024-07-24 16:51 | disposition home or self-care (01) ==
LOC: ANHIMG 16:53
PROVIDERS: PCP Family Medicine; Visit Provider Family Medicine
DX: R05.9 Cough, unspecified (principal); R06.2 Wheezing
CPT/HCPCS: 71046

== ENCOUNTER 2024-08-02 13:21 | Outpatient (CLI) | payer BC, SELFPAY ==
--- NOTE | ~2024-08-02 | XR_ITS ---
EXAM/PROCEDURE: XR chest 2V - 08/02/2024 13:27 CDT HISTORY: 64 years old Female with J40 - Bronchitis, not specified as acute or chronic TECHNIQUE: Two view(s) of the chest. COMPARISON: 07/24/2024 FINDINGS: LUNGS/ PLEURA: No focal consolidation. No appreciable pneumothorax or large pleural effusion. HEART/ MEDIASTINUM: Heart appears normal in size. BONES: No acute osseous abnormality. OTHER: Visualized upper abdomen is unremarkable. IMPRESSION: No acute process. Reviewed, dictated and finalized at location A. IMPRESSION: No acute process.
--- OUTSIDE RECORDS SUMMARY | 2024-08-02 13:48 | XMS_ITS | Clinical Summary ---
Author Organization [facility] Address [address] [place] [address] Care Team Providers Care Certified Coder Name Role Phone Steve Cole MD Unavailable [phone] Prince Osei MD Primary Care Provider [phone] Source Comments [facility],non-owned Affiliates and Associated Physician Practices is amultiple site organization consisting of ambulatory clinics and hospital sitesin [place], [place], [place] and [place]. This disclosure is being madepursuant to the Care Everywhere program and may not contain all information available regarding this patient. Last updated 18.[facility] Allergies Active Allergy Reactions Criticality Noted Date [...] Active vitamin D, ergocalciferol, (DRISDOL) 1.25 MG (61927 UT) capsule Take 1 (one) capsule by [...] Info) Description 10/18/2024 11:00 AM CDT Appointment [facility] [address] [place] [address] 10/18/2024 11:30 AM CDT Office Visit [facility] - General Surgery [address] [place] [phone] Mary Alice Puente MD [address] [facility] [address] [place] [address] Health Maintenance Due Date Last [...] COVID-19 VACCINE (1 - 2023- season) 2023 DEPRESSION SCREENING 04/25/2024 INFLUENZA VACCINE (Season Ended) 2024 12/30/2021, 01/15/2020, 12/16/2018, Additional history exists MAMMOGRAM 10/12/2025 10/13/2023, 09/23, 10/11/2022, Additional history [...] this topic Medical Devices Implanted Type Area Embedded Processor Device Identifier Shelf Expiration Date Model / Serial / Lot Mrkr Rgd End Dpl Dlv Sys Clip Securmark Implanted:Qty: 1 on 10/19/2021 by Valery Betancourt MD at [facility] Right: Breast Hologic 01/26/2022 SMARK-EVIVA -13 / / [id number] [facility] Biop Site Celero Implanted:Qty: 1 on 02/08/2022 by Valery Betancourt MD at [facility] Right: Breast Hologic 08/20/2022 SMARK-CELER O-2S / / [id number] Procedures Procedure Name Priority Date/Time Associated Diagnosis [...] BENIGN. > Dictated by Bethany Ogden MD (director of residential services). I, Valery Betancourt MD have personally reviewed and interpreted this examination/study. > Interpreting Provider: Valery Betancourt MD on 10/13/2023 11:13 AM Narrative 10/13/2023 11:13 AM CDT EXAMINATIONS: BILATERAL DIGITAL SCREENING MAMMOGRAM AND BILATERAL BREAST TOMOSYNTHESIS WITH CAD LOCATION: [facility] EXAM DATE: 10/13/2023 HISTORY: Screening. 63-year-old female [...] Recently Relevant to Health Maintenance Care Teams Certified Coder Relationship Specialty Start Date End Date Prince Osei MD [address] [place] [id number] PCP - General Family Medicine 01/06/23 Steve Cole MD [address] [address] Internal Medicine 10/13/22
--- OUTSIDE RECORDS SUMMARY | 2024-08-02 13:48 | XMS_ITS | Encounter Summary ---
Author Organization [facility] Address [address] [facility] [place] [address] Care Team Providers Care Tuna Purse Seiner Name Role Phone Shad Waldrop DO Primary Care Provider Steve Cole MD Unavailable [phone] Chapincito Wyatt MD Primary Care Provider [phone] Prince Osei MD Primary Care Provider [phone] Encounter Details Date Type Department Care Team (Late Contact Info) Description 01/21/2022 Lab Requisition [facility] [address] [place] [id number] Shaji Rhoades MD [address] [place] [address] Social History Tobacco Use Types Packs/Day Years [...] Info) Description 10/18/2024 11:00 AM CDT Appointment [facility] [address] [place] [address] 10/18/2024 11:30 AM CDT Office Visit [facility] - General Surgery [address] [place] [phone] Mary Alice Puente MD [address] [facility] [address] [place] [phone] documented as of this encounter Procedures Procedure Name Priority Date/Time Associated Diagnosis Comments DERMATOPATHOLOGY Routine 01/20/2022 12:0 0 AM CDT documented in this encounter Results * DERMATOPATHOLOGY (01/20/2022 12:00 AM CDT) Case Report Dermatopathology Report Case: [id number] Authorizing Provider: Shaji Rhoades MD Collected: 01/20/2022 12:00 AM Ordering Location: [facility] Derm[facility] Lab Received: 01/21/2022 11:56 AM Pathologist: [...] characteristic determined by the Dermatopathology Laboratory at [facility], directed by Dr. Jacki Hayes. These tests need not be, and therefore are not, approved by the [place] Food and Drug Administration. The tests are used for clinical purposes. Billing Codes Specimen Charges Stain Charges 66930 95153 1 1 2 4:04 PM CDT DERMATOPATHOLOGY LABORATORY Embedded Images 2 4:04 PM CDT DERMATOPATHOLOGY LABORATORY Pathology/Cytology TISSUE SPECIMEN FROM SKIN / Unknown 01/20/2022 01/21/2022 11:56 AM CDT Miscellaneous samples (specimen) TISSUE SPECIMEN FROM SKIN / Unknown 01/20/2022 01/21/2022 11:56 AM CDT Shaji Rhoades MD LAB - PATHOLOGY/CYTO LOGY ORDERABLES DERMATOPATHOLOGY LABORATORY [facility] - Department of Dermatology [facility] [address] [place] [address], [address] [phone] documented in this encounter Visit Diagnoses Not on filedocumented in this encounter Care Teams Tuna Purse Seiner Relationship Specialty Start Date End Date Shad Waldrop DO [address] [place], [place] [id number] PCP - General 10/05/21 10/12/22 Chapincito Wyatt MD [address] [place] [address] OF PULMONARY/[place] [address] PCP - General Pulmonary Disease 11/08/22 01/05/23 Prince Osei MD [address] [place] [phone] PCP - General Family Medicine 01/06/23 Steve Cole MD [address] [address] Internal Medicine 10/13/22 documented as of this encounter
--- OUTSIDE RECORDS SUMMARY | 2024-08-02 13:48 | XMS_ITS | CONTINUITY OF CARE DOCUMENT ---
Author Name raimundo eubanks Address Unknown Organization [facility] Address [address] [address] [address] [place] [address] Phone [phone] Care Team Providers Care Binder Caser Name Role Phone Brayan Hale MD Unavailable CHAYO CUMMINS, GRISELDA Unavailable [phone] GRISELDA DOMINGO MD Unavailable [phone] PROBLEMS Condition Status Date Provider Notes Cardiology examination active Brayan españa MD Hyperlipidemia active Brayan Hale MD HTN essential active Brayan Hale MD Palpitations active Brayan Hale MD Sleep apnea active Brayan Hale MD Chest pain-type to be determined active She ranjana Mathis CHARGE NURSE Lung nodule active Brayan Hale MD ENCOUNTERS Date Type Provider Location Encounter Diag nosis - In-person encounter Office Visit Brayan Hale MD [facility] - In-person encounter Office Visit Brayan Hale MD [facility] - In-person encounter Office Visit Brayan Hale MD [facility] - In-person encounter Office Visit Brayan Hale MD [facility] Lung nodule - In-person encounter Office Visit Brayan Hale MD [facility] Chest pain-type to be determined - In-person encounter Office Visit Brayan Hale MD [facility] - In-person encounter Office Visit Brayan Hale MD [facility] Sleep apnea - In-person encounter Office Visit Brayan Hale MD [facility] Cardiology examinationHyperlipidemiaHTN essentialPalpitations VITAL SIGNS Date [...] [lb_av] Beena Perez height E&M 66 [in_i] Beena Perez Body Mass Index (Ratio) 25.66 kg/m2 Krystina Hale MD blood pressure, diastolic 76 mm[Hg] Sofya nkLoginna blood pressure, systolic 131 mm[Hg] Bethany Farzanaoginna weight E&M 159 [lb_av] Anaid Pastor pulse rate 57 /min Anaid Pastor respiratory rate E&M 18 /min Anaid Pastor blood pressure, diastolic 76 mm[Hg] Selene Pastor blood pressure, systolic 131 mm[Hg] Didi Pastor oxygen saturation, oximetry 99 % Anaid Pastor blood pressure, cuff size regular Selene Pastor height E&M 66 [in_i] Anaid Pastor Body Mass Index (Ratio) 25.50 kg/m2 Krystina Hale MD blood pressure, cuff size regular Ke rri Aleksandaruenecelestina blood pressure, diastolic 80 mm[Hg] Ke rri Gruenenfeldankur blood pressure, systolic 110 mm[Hg] Ker ri Matilde oxygen saturation, oximetry 99 % Shania Matilde respiratory rate E&M 12 /min Shania G eamonenecelestina pulse rate 57 /min Shania Vish ambrocioer weight E&M 158 [lb_av] Shania Luciuse lollyer height E&M 66 [in_i] Shania Vish nino Body Mass Index (Ratio) 25.82 kg/m2 Krystina Hale MD blood pressure, diastolic 70 mm[Hg] Li nkLoginna blood pressure, systolic 110 mm[Hg] Bethany kLoginna blood pressure, diastolic 70 mm[Hg] Minerva Damon blood pressure, systolic 110 mm[Hg] [facility] lacey Damon oxygen saturation, oximetry 98 % Silvana Damon pulse rate 60 /min Silvana martinez weight E&M 160 [lb_av] Silvana martinez respiratory rate E&M 16 /min rGetel Damon blood pressure, cuff size large Minerva Damon height E&M 66 [in_i] Silvana martinez Body Mass Index (Ratio) 25.50 kg/m2 Krystina Hale MD blood pressure, cuff size regular Ke rri Aleksandaruenecelestina blood pressure, diastolic 81 mm[Hg] Fam Gironnesandyelder blood pressure, systolic 113 mm[Hg] Mallika Clayton oxygen saturation, oximetry 98 % Shania Chauhaner respiratory rate E&M 14 /min Shania zuniganfelder pulse rate 56 /min Shania Wahl lder weight E&M 158 [lb_av] Shania Wahl lder height E&M 66 [in_i] Shania Wahl [facility] Body Mass Index (Ratio) 25.08 kg/m2 Krystina Hale MD blood pressure, diastolic 80 mm[Hg] Sofya nkLoginna blood pressure, systolic 122 mm[Hg] Bethany Yanesoginna blood pressure, cuff size regular St acfaisal Augustine blood pressure, diastolic 80 mm[Hg] St acy Davide blood pressure, systolic 122 mm[Hg] Adalid Augustine oxygen saturation, oximetry 98 % Kristina Augustine respiratory rate E&M 18 /min Kristina gomez pulse rate 54 /min Kristinamercedez Augustine weight E&M 155.4 [lb_av] Kristinamercedez Augustine height E&M 66 [in_i] Kristinamercedez Augustine weight E&M 158 [lb_av] Anmol greer Body Mass Index (Ratio) 25.50 kg/m2 Krystina Hale MD blood pressure, diastolic 74 mm[Hg] Li nkLogic blood pressure, systolic 114 mm[Hg] Bethany kLogic blood pressure, diastolic 74 mm[Hg] Ca therine Madison blood pressure, systolic 114 mm[Hg] Cat herine Adria oxygen saturation, oximetry 98 % Marina Adria pulse rate 58 /min Marina Adria respiratory rate E&M 14 /min Catheri ne Madison weight E&M 158 [lb_av] Marina Madison blood pressure, cuff size regular Ca therine Adria height E&M 66 [in_i] Marina Madison Body Mass Index (Ratio) 26.14 kg/m2 Krystina Hale MD blood pressure, cuff size regular Ke rri Gruenenfelder blood pressure, diastolic 82 mm[Hg] Ke rri Gruenenfelder blood pressure, systolic 130 mm[Hg] Mallika ri Gruenenfelder oxygen saturation, oximetry 99 % Shania Gruenenfelder respiratory rate E&M 14 /min Shania G ruenenfelder pulse rate 63 /min Shania Breetarynnfe lder weight E&M 162 [lb_av] Shania Gruenenfe lder height E&M 66 [in_i] Shania Gruenenfe lder ALLERGIES Allergy Name Onset Date Reaction [...] 3.5-5.2 3 sodium, serum 142 mmol/L [employer] [id number] 1532/06/0 3 urea nitrogen/creatinine ratio, serum 32 [employer] [...] history of marijuana use no Jordana Ventimiglia [facility] drug use no Jordana Ventimig amando [facility] alcohol use, average drinks per day social Jordana Ventimiglia [facility] alcohol use yes Jordana Ventimig amando [facility] smoking status Never smoker Jordana Ventim iglia [facility] social history E&M S moking History: Ada harman has never smoked. Brayan Hale MD social history reviewed E&M revi ewed - no changes required Brayan Hale MD smoking status Never smoker Anaid Pastor drug use no Jordana Ventimig amando [facility] alcohol use, average drinks per day social Jordana Ventimiglia [facility] alcohol use yes Jordana Ventimig amando [facility] smoking status Never smoker Jordana Ventim iglia [facility] social history E&M S moking [...] MD social history E&M S moking History: P atient has never smoked. Brayan Hale MD smoking status Never smoker Shania gardner INSURANCE PROVIDERS Payer name Policy type / Coverage type Nadia red republican ID [facility] [id number] ADVANCE DIRECTIVES Name Date DISCUSSED - NO DECISION MADE TREATMENT PLAN Date Name Performer [id number],C, E cho done 05/2021 M ild LVH, [...] angio no CAD noted Brayan Hale MD [id number],C, S table H er updated medication list for this problem includes: Metoprolol Succinate 25 Mg Tablet Extended Release 24 Hr (Metoprolol succinate) ..... Take 1 tablet by mouth every day Metoprolol Tartrate Unspecified Unspecified (Metoprolol tartrate) Brayan Hale MD [id number],S,s tarted on zetia. She has had rougly a 50 point drop in LDL down to 159. TC dropped from 298 to 237. Trigs down from 163 to 113. S he tolerates it. W ill leave her off statins since she gets myalgia. Brayan Hale MD [id number],C, N eeds titrationo study done. Has AHI of 19 when she sleeps on her back. D ecember 2021 S he had sleep study done that was partially complete. Will get report before be start her on cpap Brayan Hale MD [id number],C, H er updated medication list for this [...] (09/25/2021) HDL: 64 (09/25/2021) Brayan Hale MD [id number],C, E cho done 05/2021 M ild LVH, [...] jet. N ormal sinus rhythm. Jordana Saha [facility] [id number],C, N eeds titrationo study done. Has AHI of 19 when she sleeps on her back. D ecember 2021 S he had sleep study done that was partially complete. Will get report before be start her on cpap Jordana Saha [facility] [id number],C, H er updated medication list for this [...] 292 (09/25/2021) HDL: 64 (09/25/2021) Jordana Saha [facility] [id number],S,l ast LDL was 246 on last labs. She has tried atorvastatin and was unable to tolerate d/t myalgias. She has not tried the nexletol HAS NOT STARTED NELETOL SINCE THERE IS A RISK OF TENDON RUPTURE SHE IS SEEING AN ORTO SINCE SHE HAS HAD PRIOR LEFT SHOULDER TENDON ISSUES IN THE PAST. SHE HAS ZETIA 10MG RX AT [facility] TO START ZETIA FOR CHOL AND SEE IS SHE HAS ABD BLOATING OR NOT OTHERWISE MAY BE BETTER OPTION FOR PSCSK9 INHIBITOR PRALUENT/REPATHA Jordana Saha [facility] [id number],C,H as improved signficantly since last visit with [...] W ILL BE RESCHEDULED FOR 11/02/22 AT [facility] FOR THAT AND CXR Jordana Saha [facility] [id number],C, E cho done 05/2021 M ild LVH, [...] N ormal sinus rhythm. Brayan Hale MD [id number],C, N eeds titrationo study done. Has AHI of 19 when she sleeps on her back. D ecember 2021 S he had sleep study done that was partially complete. Will get report before be start her on cpap Brayan Hale MD [id number],C, H er updated medication list for this problem includes: Lipitor 40 Mg Tablet (Atorvastatin) ..... Take 1 tablet by mouth once daily at night C HOL: 292 (09/25/2021) HDL: 64 (09/25/2021) Brayan Hale MD [id number],C, T he following medications were removed from [...] day Orders: C T Chest with,without contrast (CPT-68064) 9 9215 HIGH 40-54min (CPT-75860) Brayan Hale MD [id number],S,S table H er updated medication list for this problem includes: Metoprolol Succinate 25 Mg Tablet Extended Release 24 Hr (Metoprolol succinate) ..... Take 1 tablet by mouth every day Metoprolol Tartrate Unspecified Unspecified (Metoprolol tartrate) Anaid Mathis NP [id number],C,S EEMS TO HAVE SOME POINT TENDERNESS LEFT [...] Unspecified Unspecified (Metoprolol tartrate) Anaid Mathis NP [id number],C, N otices improvement of palpitations with Toprol XL 25mg. January 13, 2022 H ad telemonitor in April at [facility] rare PACs and PVCs noted. She occasionally feels fluttering in her chest. Brayan Hale MD [id number],C, H er updated medication list for this [...] (09/25/2021) HDL: 64 (09/25/2021) Brayan Hale MD [id number],S,E cho done 05/2021 M ild LVH, EF [...] N ormal sinus rhythm. Brayan Hale MD [id number],S,D id not tolerate Lipitor because she develops leg cramps. Will try Nexotol and see iif she tolerates that. Brayan Hale MD [id number],C, S he has had non invasive testing [...] some point in time. Brayan Hale MD [id number],C, H er updated medication list for this [...] (09/25/2021) HDL: 64 (09/25/2021) Brayan Hale MD [id number],S, B ad lipid panel, needs to get treated, A1c elevation probably related to high Triglycerides. Brayan Hale MD [id number],C,N otices improvement of palpitations with Toprol XL 25mg. Brayan Hale MD [id number],C,N eeds titrationo study done. Has AHI of 19 when she sleeps on her back. Brayan Hale MD [id number],C,S he has had non invasive testing done. [...] eccomend home sleep study. Brayan Hale MD [id number],C,A dd toperol xl 25mg. See how she tolerates minimal dose of BB. May be some component of mitral valve prolapse. Brayan Hale MD [id number],C,A dd HCTZ 25mg daily. Was on it before and noted improvement in pressures and leg edema. She reprots that she has been seen by vein specialist before and has been diiagnosed with venous issues involving both legs which may be cause of leg edema and has worn compression Brayan Hale MD [id number],S,Recheck lipid panel. Brayan Hale MD Cardiology:CAN GET [...] N EEDS COMPARISION TTHE CT DONE 11/02/2022 Joppa Yifan [facility] Cardiology:had leg v ein ablation done in the right leg and had some done on the left leg m [facility] ricky guzman as improved the legs with the venous reflux treatment Joppa Yifan [facility] Cardiology: N eeds titrationo study done. Has AHI of 19 when she sleeps on her back. D ecember 2021 S he had sleep study done that was partially complete. Will get report before be start her on cpap Joppa Yifan [facility] Cardiology:rare inte rmittent palptiaitons T his visit has been a part of the consistent, comprehensive, and ongoing management of the chronic medical condition(s) listed above for the patient. Her updated medication list for this problem includes: Metoprolol Succinate 25 Mg Tablet Extended Release 24 Hr (Metoprolol succinate) ..... Take 1 tablet by mouth every day Joppa Yifan [facility] Cardiology:Last LDL 159 and trig 113 H er updated medication list for this problem includes: Ezetimibe 10 Mg Tablet (Ezetimibe) Jordanakushal Saha [facility] Cardiology: H er updated medication list for this problem includes: Metoprolol Succinate 25 Mg Tablet Extended Release 24 Hr (Metoprolol succinate) ..... Take 1 tablet by mouth every day Jordanakushal Saha [facility] Cardiology:BP today 122/72 T his visit has been a part of the consistent, comprehensive, and ongoing management of the chronic medical condition(s) listed above for the patient. Jordanakushal Solizspenserjere [facility] Cardiology: E cho done 05/2021 [...] jet. N ormal sinus rhythm. Jordana Saha [facility] Cardiology: N eeds titrationo study done. Has AHI of 19 when she sleeps on her back. D ecember 2021 S he had sleep study done that was partially complete. Will get report before be start her on cpap Jordana Saha [facility] Cardiology: H er updated medication [...] 292 (09/25/2021) HDL: 64 (09/25/2021) Jordana Saha [facility] Cardiology:last LDL was 246 on last labs. She has tried atorvastatin and was unable to tolerate d/t myalgias. She has not tried the nexletol HAS NOT STARTED NELETOL SINCE THERE IS A RISK OF TENDON RUPTURE SHE IS SEEING AN ORTO SINCE SHE HAS HAD PRIOR LEFT SHOULDER TENDON ISSUES IN THE PAST. SHE HAS ZETIA 10MG RX AT [facility] TO START ZETIA FOR CHOL AND SEE IS SHE HAS ABD BLOATING OR NOT OTHERWISE MAY BE BETTER OPTION FOR PSCSK9 INHIBITOR PRALUENT/REPATHA Jordana Saha [facility] Cardiology:Has impro regi signficantly since [...] W ILL BE RESCHEDULED FOR 11/02/22 AT [facility] FOR THAT AND CXR Jordana Saha [facility] Cardiology: E cho done 05/2021 [...] day Orders: C T Chest with,without contrast (CPT-84170) 9 9215 HIGH 40-54min (CPT-07989) Brayan Hale MD Cardiology:Stable H er updated [...] (Metoprolol tartrate) Anaid Mathis NP Cardiology: N otices improvement of palpitations with Toprol XL 25mg. January 13, 2022 H ad telemonitor in April at [facility] rare PACs and PVCs noted. She occasionally [...]
--- OUTSIDE RECORDS SUMMARY | 2024-08-02 13:48 | XMS_ITS | Encounter Summary ---
Author Organization [facility] Address [address] [place] [address] Phone Care Team Providers Care Tire Center Supervisor Name Role Phone Prince Osei MD Primary Care Provider [phone] Nhi Covarrubias MD PhD Unavailable [phone] Encounter Details Date Type Department Care Team (Late st Contact Info) Description 08/01/2024 Telephone [facility] Pulmonary [address] [place] [address] [place] [address] Qian Johnston, ELENA Social History Tobacco Use Types Packs/Day Years [...] on file 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 ----- Message from Christina Rodriguez sent at 07/24/2024 11:42 AM CDT ----- Pt left a message on my line that she would like to schedule an appt with Dr. Cole. She stated that she has some issues going on at the moment and hoping to get schedule ENEDELIA. Pt can be reached at: [phone]. Thanks documented in this encounter Plan of Treatment Scheduled Procedures Name Priority Associated Diagnoses Date/Ti me COLONOSCOPY Encounter for screening for malignant neoplasm of colon documented as of this encounter Goals Goal Patient Goal Type Associated Problems Recent Progress Patient-Stated? Author CCM Chronic Pain Care Plan Chronic Care Management No change(06/11 3:12 PM HYDRAULIC JACK MECHANIC) No Sagar Rich RN Note: Problem: Chronic Pain Goals: 1. Minimize further functional decline 2. Maximize quality of life 3. Control pain Strategies: - Activity/exercise program recommendation - Conservative stepwise pain medicine strategy with multi-disciplinary approach - Recommend healthy lifestyle strategies and compensatory methods as needed documented as of this encounter Visit Diagnoses Not on filedocumented in this encounter Care Teams Tire Center Supervisor Relationship Specialty Start Date End Date Prince Osei MD PCP - General Family Practice 10/01/22 Nhi Covarrubias MD PhD [address] [place] [address] Anesthesiologist Anesthesiology 10/20/22 documented as of this encounter
--- OUTSIDE RECORDS SUMMARY | 2024-08-02 13:49 | XMS_ITS | Encounter Summary ---
Author Organization [facility] Healthcare Address [address] [place] [address] Care Team Providers Care Fixture Relamper Name Role Phone Prince Osei MD Primary Care Provider [phone] Nhi Covarrubias MD PhD Unavailable [phone] Encounter Details Date Type Department Care Team (Late st Contact Info) Description 05/01/2024 Telephone [facility] [address] [place] [address] Nhi Covarrubias MD PhD [address] [place] [address] Social History Tobacco Use Types [...] on file 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 Author CCM Chronic Pain Care Plan Chronic Care Management No change(06/11 3:12 PM TRUCK BODY BUILDER APPRENTICE) No Sagar Rich RN Note: Problem: Chronic Pain Goals: 1. Minimize further functional decline 2. Maximize quality of life 3. Control pain Strategies: - Activity/exercise program recommendation - Conservative stepwise pain medicine strategy with multi-disciplinary approach - Recommend healthy lifestyle strategies and compensatory methods as needed documented as of this encounter Visit Diagnoses Not on filedocumented in this encounter Care Teams Fixture Relamper Relationship Specialty Start Date End Date Prince Osei MD PCP - General Family Practice 10/01/22 Nhi Covarrubias MD PhD [address] [place] [address] Anesthesiologist Anesthesiology 10/20/22 documented as of this encounter
--- OUTSIDE RECORDS SUMMARY | 2024-08-02 13:49 | XMS_ITS | Encounter Summary ---
Author Organization [facility] Healthcare Address [address] [place] [address] Care Team Providers Care Physician Industrial Name Role Phone Erika Blackmon MD Primary Care Provider Jordon Fields MD Primary Care Provider [phone] Shad Waldrop DO Primary Care Provider [phone] Erica Carlisle MD Primary Care Provider [phone] Prince Osei MD Primary Care Provider [phone] Nhi Covarrubias MD PhD Unavailable [phone] Encounter Details Date Type Department Care Team (Late st Contact Info) Description 01/22/2021 Telephone [facility] Radiology [address] [place] [address] [place] [address] [place] [address] Social History Tobacco Use Types Packs/Day Years Used Date Smoking Tobacco: Never Smokeless Tobacco: Never Alcohol Use Standard Drinks/Week Comments Yes 0 (1 standard drink = 0.6 oz pur e alcohol) RARE Comments Unknown Sex and Gender Information Value Date Recorded Sex Assigned at Not on file 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 Gender Identity Not on file Sexual Orientation Straight 05/22/2020 6: 40 PM TREE TRIMMER HELPER documented as of this encounter Plan of Treatment Scheduled Procedures Name Priority Associated Diagnoses Date/Ti me COLONOSCOPY Encounter for screening for malignant neoplasm of colon documented as of this encounter Visit Diagnoses Not on filedocumented in this encounter Care Teams Physician Industrial Relationship Specialty Start Date End Date Erika Blackmon MD [address] [place] [address] PCP - General Family Medicine 05/19/20 06/21/21 Jordon Fields MD [address] [facility] [address] [place] [address] PCP - General Internal Medicine 06/22/21 09/24/21 Shad Waldrop DO [address] [facility] [address] [place] [address] PCP - General Internal Medicine 09/25/21 07/13/22 Erica Carlisle MD [address] [facility] [address] [place] [address] PCP - General Internal Medicine 07/14/22 09/30/22 Prince Osei MD [address] [facility] [address] [place] [address] PCP - General Family Practice 10/01/22 Nhi Covarrubias MD PhD [address] [place] [address] Anesthesiologist Anesthesiology 10/20/22 documented as of this encounter
--- OUTSIDE RECORDS SUMMARY | 2024-08-02 13:49 | XMS_ITS | Data Portability ---
Author Organization [employer], [facility] Address [address] [address] Assessment Encounter Date Assessment Date Assessment LastModified by Organization Details LastModified Time 05/03/2018 05/03/2018 Plan to get a comprehensive lab panel. Will f/u with patient when lab results are in to discuss treatment plan. Advised her to check BP daily and record. If consistently high, see PMD [email or web address] Not available 05/03/2018 16:51:28 Plan of Treatment Reminders Order Date Submit Date Provider Last Modified By Organization Details Last Modified Time Details Appointments None recorded. Lab None recorded. Referral None recorded. Procedures None recorded. Surgeries None recorded. Imaging XR, cervical spine 2017 018 [email or web address] Not available 8 15:09:52 Medication Orders Voltaren 1 % topical gel 2017 018 [email or web address] [facility], [address], [address], [place], [address], 9 08:45:17 Patient TargetsNo targets recorded. Patient Instructions Encounter Date Encounter Id Patient Instructions Last Modified By Organization Details Last Modified Time 01/31/2018 [id number] knee arthritis: care instructions [email or web address] Not available 01/31/2018 19:34:39 neck pain: care instructions [email or web address] Not available 01/31/2018 19:34:39 X-rays of cervical spine and follow-up to review. Not available 02/02/2018 08:04:06 02/15/2018 [id number] cervical spondylosis: care instructions Not available 02/17/2018 09:47:03 neck arthritis: exercises Not available 02/17/2018 09:47:[address] Maurice for evaluation and possible facet vs JEANINE injections. She also has chronic fatigue issues. Dr. Bass would like her to see Khadra for HRT evaluation. She will keep us posted on her progress post treatment. [email or web address] Not available 10/13/2018 07:51:30 Reason for Referral None Reported. Results Created Date Observation Date Name Description Value Unit Range Abnormal Flag Note LastModifiedBy Organization Detail LastModifiedTime 02/03/20 18 02/01/2018 XR, cervi karina spine No observ ation record ed. [address] (Imaging) [address] [place] [address] [place] [address], [phone], 02/03/2018 12:01:56 02/14/20 18 02/12/2018 MRI, cervi karina spine , w/o contr ast No observ ation record ed. [address] (Imaging) [address] [place] [address] [address] [facility], [place], [address], 02/15/2018 06:37:37 02/16/20 18 02/12/2018 MRI, cervi karina spine , w/o contr ast No observ ation record ed. [address] (Imaging) [address] [place] [address] [address] [facility], [place], [address], 02/15/2018 15:47:01 02/24/20 18 02/22/2018 MRI, cervi karina spine , w/o contr ast No observ ation record ed. [facility] (Imaging) [address] [place] [address] [place] [address], [phone], 02/23/2018 10:23:51 05/14/19 22 03/09/2021 XR, shoul adali, 2 or more view No observ ation record ed. [email or web address] Not Available 2021 11:49:03 05/14/19 22 01/29/2021 CT, cervi karina spine , w/o contr ast No observ ation record ed. [email or web address] Not Available 2021 11:49:03 05/14/19 22 01/23/2021 MRI, lumba r spine , w/o contr ast No observ ation record ed. [email or web address] Not Available 2021 11:49:04 05/14/19 22 01/12/2021 XR, shoul adail, 2 or more view No observ ation record ed. [email or web address] Not Available 2021 11:49:04 05/14/19 22 10/13/2020 XR, shoul adali, 2 or more view No observ ation record ed. Not Available 2021 11:49:04 05/14/19 22 09/30/2020 XR, cervi karina spine , 2 or 3 view No observ ation record ed. [email or web address] Not Available 2021 11:49:05 05/14/19 22 09/30/2020 XR, cervi karina spine , 2 or 3 view No observ ation record ed. [email or web address] Not Available 2021 11:49:05 05/14/19 22 09/01/2020 XR, shoul adali, 2 or more view No observ ation record ed. [email or web address] Not Available 2021 11:49:05 05/14/19 22 07/21/2020 XR, shoul adali, 2 or more view No observ ation record ed. [email or web address] Not Available 2021 11:49:06 05/14/19 22 06/25/2020 XR, shoul adali, 2 or more view No observ ation record ed. [email or web address] Not Available 2021 11:49:06 11/27/19 22 10/22/2021 MRI, cervi karina spine , w/o contr ast No observ ation record ed. [email or web address] Not Available 2021 09:00:56 03/08/20 23 10/29/2022 MRI, thora cic spine , w/o contr ast No observ ation record ed. [email or web address] Not Available 2022 11:33:30 Result Notes None recorded. Problems Name Problem SNOMED Code Status Onset Date Resolution Date Notes Provider Name and Address Organization Details Recorded Time Arthritis 0631496 Active 018 Billy Darby coleman [place] - [facility], [facility] 07/12/2017 14:52:46 Problem Notes None recorded. Procedures Surgical History Date Name Laterality Status Provider Name and Address Organization Details Recorded Time 10/09/19 22 Breast Surgery completed Billy Pastor [place] - [facility], [facility] 11/04/2021 14:58:18 09/19/19 22 Colonoscopy completed Billy HADDAD - [facility], [facility] 11/04/2021 14:58:18 05/13/19 22 Generic Procedure completed GEORGETTE GARCIA [address], [place], [address], [place] - [facility], [facility] 05/14/2021 11:43:35 04/25/19 17 Knee Surgery completed Billy Pastor [place] - [facility], [facility] 07/12/2017 14:55:24 04/25/18 93 Hysterectomy completed Billy HADDAD - [facility], [facility] 07/12/2017 14:55:16 04/25/18 72 Appendectomy completed Billy Pastor [place] - [facility], [facility] 07/12/2017 14:55:06 Appendectomy completed Billy HADDAD - [facility], [facility] 11/04/2021 14:58:18 Colonoscopy completed Billy Pastor [place] - [facility], [facility] 11/04/2021 14:58:18 Imaging Results Imaging Date Name Status LastModified by Organiz ation Details LastModified Time 02/01/2018 XR, cervical spine completed [address] (Imaging) [address] [place] [address], [phone], 02/03/2018 12:01:56 02/12/2018 MRI, cervical spine, w/o contrast completed [address] (Imaging) [address] [place] [address], [phone], 02/15/2018 06:37:37 02/12/2018 MRI, cervical spine, w/o contrast completed [address] (Imaging) [address] [place] [address], [phone], 02/15/2018 15:47:01 02/22/2018 MRI, cervical spine, w/o contrast completed [facility] ([facility]) [address] [facility] [address], [place], [address], 02/23/2018 10:23:51 03/09/2021 XR, shoulder, 2 or more view completed [email or web address] Information not available 05/15/2021 11:49:03 01/29/2021 CT, cervical spine, w/o contrast completed [email or web address] Information not available 05/15/2021 11:49:03 01/23/2021 MRI, lumbar spine, w/o contrast completed [email or web address] Information not available 05/15/2021 11:49:04 01/12/2021 XR, shoulder, 2 or more view completed [email or web address] Information not available 05/15/2021 11:49:04 10/13/2020 XR, shoulder, 2 or more view completed [email or web address] Information not available 05/15/2021 11:49:04 09/30/2020 XR, cervical spine, 2 or 3 view completed [email or web address] Information not available 05/15/2021 11:49:05 09/30/2020 XR, cervical spine, 2 or 3 view completed [email or web address] Information not available 05/15/2021 11:49:05 09/01/2020 XR, shoulder, 2 or more view completed [email or web address] Information not available 05/15/2021 11:49:05 07/21/2020 XR, shoulder, 2 or more view completed [email or web address] Information not available 05/15/2021 11:49:06 06/25/2020 XR, shoulder, 2 or more view completed [email or web address] Information not available 05/15/2021 11:49:06 10/22/2021 MRI, cervical spine, w/o contrast completed [email or web address] Information not available 11/30/2021 09:00:56 10/29/2022 MRI, thoracic spine, w/o contrast completed [email or web address] Information not available 03/21/2023 11:33:30 Procedure Notes None recorded. Medical Equipment None Reported. Allergies Allergen ID Allergen Name Allergen Category Reaction Reaction Severity Criticality Documentation Date Start Date Code Code System Note Provider Name and Address Organization Details Recorded Time 84167 Substance with sulfonami de structure and antibacte rial mechanism of action (substanc e) medicatio n Not available Not available Not available 07/12/2017 02093 8003 SNOMED Billy coleman [employer] [facility], [facility] 8 14:52:26 36104 latex environme nt,medica tion Not available Not available Not available 07/12/2017 57850 91 RxNorm Billy coleman [facility] [employer] [facility], [facility] 8 14:52:32 44985 adhesive environme nt,medica tion rash Not available Not available 07/15/2017 05293 UNK Hiro coleman [facility] [employer] [facility], [facility] 8 13:42:09 58310 lidocaine medicatio n rash Not available Not available 07/15/2017 6387 RxNorm Hiro coleman [employer] [facility], [facility] 8 13:42:23 27122 propofol medicatio n muscle cramps severe Not available 11/04/20212021 8782 RxNorm Billy coleman, [employer] [facility], [facility] 14:57:45 Medications Name Sig Start Date Stop Date Status Note LastModified by Organization Details LastModified Time compounded medication Apply 0.5mL Cream to upper inner thigh Q AM 05/04 completed Not Available Not Available Not Available Prescriptio n - New 05/04 completed Not Available Not Available Not Available compounded medication Apply 0.25mL Cream to upper inner thigh Q AM 2018 active Not Available Not Available Not Avai lable compounded medication Apply 0.25mL Cream to upper inner thigh Q AM 2018 active Not Available Not Available Not Avai lable compounded medication Take 1 Cap PO q Day 2018 active Not Available Not Available Not Avai lable Prometrium 200 mg capsule Take 1 capsule every day by oral route at bedtime for 90 days. 2018 active Not Available Not Available Not Avai lable [place] Thyroid 60 mg tablet take 1 tab po q am. no food or drink for 30 min following . 10/30 completed Not Available Not Available Not Available atorvastati n 40 mg tablet TAKE 1 TABLET BY MOUTH EVERY DAY AT NIGHT active Not Available Not Available No t Available methocarbam ol 500 mg tablet active Not Available Not Available Not Available carvedilol 6.25 mg tablet active Not Available Not Available Not Available [place] Thyroid 90 mg tablet Take 1 tablet every day by oral route before meals for 30 days. 10/30 completed Not Available Not Available Not Available tizanidine 2 mg tablet TAKE 1/2 TABLET BY MOUTH EVERY 4 HOURS NEEDED FOR MUSCLE SPASM active Not Available Not Available No t Available azithromyci n 250 mg tablet TAKE 2 TABLETS BY MOUTH FOR 1 DAY THEN TAKE 1 TABLET BY MOUTH DAILY FOR 4 DAYS 10/30 completed Not Available Not Available Not Available ibuprofen 800 mg tablet active Not Available Not Available Not Available fluconazole 150 mg tablet TAKE 1 TABLET BY MOUTH DAILY active Not Available Not Available No t Available benzonatate 200 mg capsule TAKE 1 CAPSULE BY MOUTH THREE TIMES DAILY NEEDED FOR COUGH active Not Available Not Available No t Available hydrocodone 5 mg-acetamin ophen 325 mg tablet TAKE 1 TABLET BY MOUTH FOUR TIMES DAILY NEEDED active Not Available Not Available No t Available Niaspan 500 mg tablet,exte nded release Take 2 tablets every day by oral route. 2018 active Not Available Not Available Not Avai lable clindamycin HCl 150 mg capsule Take 1 capsule every 6 hours by oral route for 7 days. 05/04 completed Not Available Not Available Not Available sumatriptan 50 mg tablet TAKE 1 TABLET BY MOUTH AT THE ONSET OF HEADACHE MAY REPEAT IN 2HOURS IF NO RELEIF MAX OF 4 TABLET IN 24 HOURS active Not Available Not Available No t Available penicillin V potassium 500 mg tablet TAKE 1 TABLET BY MOUTH FOUR TIMES DAILY active Not Available Not Available No t Available amlodipine 2.5 mg tablet TAKE 1 TABLET BY MOUTH DAILY 10/30 completed Not Available Not Available Not Available nifedipine ER 30 mg tablet,exte nded release active Not Available Not Available Not Available nortriptyli ne 25 mg capsule active Not Available Not Available Not Available Niaspan 1,000 mg tablet,exte nded release Take 1 tablet every day by oral route with meals for 90 days. 2018 active Not Available Not Available Not Avai lable meloxicam 7.5 mg tablet TAKE 1 TABLET BY MOUTH EVERY DAY active Not Available Not Available No t Available amoxicillin 875 mg tablet TAKE 1 TABLET BY MOUTH EVERY 12 HOURS FOR 10 DAYS 10/30 completed Not Available Not Available Not Available alprazolam 0.25 mg tablet TAKE 1 TABLET ORALLY ONCE TAKE 45 MINUTES BEFORE PROCEDURE active Not Available Not Available No t Available Diflucan 100 mg tablet Take 1 tablet every day by oral route for 7 days. 05/04 completed Not Available Not Available Not Available cephalexin 500 mg capsule TAKE 1 CAPSULE BY MOUTH EVERY 12 HOURS FOR 10 DAYS 10/30 completed Not Available Not Available Not Available lisinopril 10 mg tablet TAKE 1 TABLET BY MOUTH DAILY active Not Available Not Available No t Available niacin 500 mg tablet TAKE 2 TABLETS BY MOUTH EVERY MORNING WITH FOOD 2019 active Not Available Not Available Not Avai lable gabapentin 300 mg capsule active Not Available Not Available Not Available triamterene 37.5 mg-hydrochl orothiazide 25 mg tablet TAKE 1 TABLET BY MOUTH EVERY MORNING active Not Available Not Available No t Available estradiol 2 mg tablet TAKE 1 TABLET BY MOUTH DAILY active Not Available Not Available No t Available hydrochloro thiazide 25 mg tablet TAKE 1 TABLET BY MOUTH EVERY DAY active Not Available Not Available No t Available zaleplon 10 mg capsule active Not Available Not Available N ot Available zolpidem 5 mg tablet active Not Available Not Available No t Available [place] Thyroid 30 mg tablet Take 1 tablet every day by oral route before meals for 30 days. 10/30 completed Not Available Not Available Not Available estradiol 0.5 mg tablet TAKE 3 TABLETS BY MOUTH EVERY DAY active Not Available Not Available No t Available metoprolol succinate ER 25 mg tablet,exte nded release 24 hr TAKE 1 TABLET BY MOUTH EVERY DAY active Not Available Not Available No t Available ergocalcife rol (vitamin D2) 1,250 mcg (50,000 unit) capsule TAKE 1 CAPSULE BY MOUTH EVERY WEEK active Not Available Not Available No t Available diazepam 10 mg tablet Take 1 tablet(s) 30 mins PRIOR to appointme nt PRN and repeat as directed by physician . 2018 active Not Available Not Available Not Avai lable ibuprofen 600 mg tablet TAKE 1 TABLET BY MOUTH THREE TIMES DAILY active Not Available Not Available No t Available methylpredn isolone 4 mg tablets in a dose pack FOLLOW PACKAGE DIRECTION S active Not Available Not Available No t Available cefdinir 300 mg capsule TAKE 1 CAPSULE BY MOUTH EVERY 12 HOURS active Not Available Not Available No t Available fluticasone propionate 50 mcg/actuati on nasal spray,suspe nsion SHAKE LIQUID AND USE 1 SPRAY IN EACH NOSTRIL EVERY DAY active Not Available Not Available No t Available amoxicillin 875 mg-potassiu m clavulanate 125 mg tablet TAKE 1 TABLET BY MOUTH EVERY 12 HOURS 10/30 completed Not Available Not Available Not Available Ventolin HFA 90 mcg/actuati on aerosol inhaler USE 2 PUFFS BY MOUTH EVERY 6 HOURS NEEDED FOR BRONCHOSP ASM active Not Available Not Available No t Available cyclobenzap rine 5 mg tablet active Not Available Not Available Not Available rosuvastati n 40 mg tablet active Not Available Not Available Not Available duloxetine 30 mg capsule,del ayed release TAKE 1 CAPSULE BY MOUTH DAILY active Not Available Not Available No t Available Aleve 10/30 completed Not Available Not Available Not Available metoprolol succinate 2021 active Not Available Not Available Not Avai lable Water Pill 2021 active Not Available Not Available Not Avai lable cholecalcif whit[place] (vitamin D3) 1,250 mcg (50,000 unit) capsule TAKE ONE CAPSULE BY MOUTH WEEKLY 10/30 completed Not Available Not Available Not Available diclofenac 1 % topical gel APPLY 2 GRAMS TOPICALLY TO THE AFFECTED AREA THREE TIMES DAILY active Not Available Not Available No t Available niacin (inositol niacinate) 500 mg tablet take 2 tabs (1000mg) PO daily with morning meal 2018 active Not Available Not Available Not Avai lable Vitals Date Recorded Body height Body mass index (BMI) Body weight Provider Name and Address Organization Details Last Updated DateTime 01/31/2018 170.18 cm 23.2 kg/m2 94637.67 g Billy Pastor [employer] 01/31/2018 18:22:46 Date Recorded Body height Body mass index (BMI) Body weight Provider Name and Address Organization Details Last Updated DateTime 02/15/2018 170.18 cm 23.2 kg/m2 20335.67 g Billy Pastor [employer] 02/15/2018 18:06:50 Date Recorded Body height Body mass index (BMI) Body weight Heart rate Systolic blood pressure Diastolic blood pressure Provider Name and Address Organization Details Last Updated DateTime 2 170.18 cm 22.7 kg/m2 09029.8 9 g 76 /min 150 mm[Hg] 80 mm[Hg] Billy Pastor [employer] [facility], [facility] 2 13:42:45 Date Recorded Body height Body mass index (BMI) Body weight Heart rate Systolic blood pressure Diastolic blood pressure Provider Name and Address Organization Details Last Updated DateTime 2 170.18 cm 22.7 kg/m2 82730.8 9 g 76 /min 146 mm[Hg] 76 mm[Hg] Billy Pastor [employer] [facility] 2 14:57:34 Social History Question Answer Notes LastModified by Organizat ion Details LastModified Time Tobacco Smoking Status Never Smoker [facility] 07/12/2017 14:54:12 What Is Your Level Of Alcohol Consumption? 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 Alone [email or web address] Information not available 11/04/2021 Marital Status Informatio n not available 11/04/2021 What Was The Date Of Your Most Recent Tobacco Screening? 02/15/2018 [email or web address] Information not available 11/04/2021 What Types Of Sporting Activities Do You Participate In? Dance Swim [email or web address] Information not available 07/12/2017 Sex: Unknown Functional Status Question Answer Note LastModified by Organization D etails LastModified Time What is your exercise level? Moderate [email or web address] Information not available 07/12/2017 Mental Status None recorded. Family History Relationship Description Onset Age of this Age Resolved Age Notes LastModified by Organization Details LastModified Time Unspecified Relation Arthritis Not available 07/12 14:53:00 Unspecified Relation Heart disease Not available 2017 14:53:12 Unspecified Relation Hypercholest erolemia Not available 2017 14:53:22 Unspecified Relation Diabetes mellitus [email or web address] Not available 2017 14:53:30 Unspecified Relation Hypertensive disorder [email or web address] Not available 2017 14:53:41 Unspecified Relation Malignant neoplastic disease [email or web address] Not available 2017 14:53:54 Medical History Condition Response HIV or AIDS N Coronary Artery Disease N Gout N Kidney Stones N Hyperthyroidism N Head Trauma/Injury N Hernia N COPD N Depression N Hypothyroidism N Lung Disease N Blood Clots N Pacemaker N Anxiety Disorder N Arthritis Y Cancer N Stroke N Leg or Foot Ulcers N Neck Injury Y High Cholesterol Y Liver Disease N Rheumatoid Arthritis N Fibromyalgia N Headaches N Kidney Disease N Heart Problems N Migraines N Thyroid Problems N Anemia N Multiple Sclerosis N Tendon Tear N Ulcers N Heart Attack ([place]) N Diabetes N Bleeding Disorder N Seizures/Epilepsy N Tuberculosis N Urinary Tract Infection N Back Problems Y Diverticulitis N Asthma N Lupus N Peripheral Vascular Disease N Sleep Disorder Y GERD/Reflux N Hepatitis N Aneurysm N Heart Disease N Pulmonary Embolism N Hypertension Y Osteoporosis N Gynecological HistoryNo gynecological history recorded. Obstetrics History GPAL:G 0 P 0 0 0 0 Past Encounters Encounter ID Performer Location Encounter Start Date Encounter Closed Date Diagnosis/Indication Diagnosis SNOMED-CT Code Diagnosis ICD10 Code Diagnosis Note [id number] Florencio Felixyuliaanum [facility] [address] [place] [address] 07/12/2017 14:25:39 07/12/2017 15:58:37 Osteoarthritis of knee 521170896 M17.0 LEFT knee pain consistent with: Grade 1 medial and moderate patellofem oral compartmen t osteoarthr osis; medial meniscal derangemen t with mild extrusion Malaise and fatigue 2717 89983 R53.83 E27.1 M89.9 M94.9 Anxiety 20993753 F41.9 Antibiotic prophylaxis indicated 310636706 Z78.9 Derangemen t of meniscus 776687612 M23.307 Degenerati ve joint disease of shoulder region 69316513 M19.019 LEFT shoulder pain consistent with: Well-maint ained glenohumer al and acromiocla vicular joint space. Biceps tendinosis at the level bicipital groove. Partial thickness tear mid body to insertion of the subscapula ris; multiple partial thickness tears to insertion of the supraspina tus tendon. There is moderate subdeltoid bursal fluid collection . Disorder o f rotator cuff 251221720 M75.102 [id number] Lanie Bass [facility] [address] [place] [address] 07/26/2017 17:16:55 07/27/2017 15:23:31 Osteoarthritis of knee 682451801 M17.0 LEFT knee pain consistent with: Grade 1 medial and moderate patellofem oral compartmen t osteoarthr osis; medial meniscal derangemen t with mild extrusion Disorder o f rotator cuff 304264421 M75.102 Degenerati ve joint disease of shoulder region 47405505 M19.019 LEFT shoulder pain consistent with: Well-maint ained glenohumer al and acromiocla vicular joint space. Biceps tendinosis at the level bicipital groove. Partial thickness tear mid body to insertion of the subscapula ris; multiple partial thickness tears to insertion of the supraspina tus tendon. There is moderate subdeltoid bursal fluid collection . [id number] Lanie Bass [facility] [address] [place] [address] 10/18/2017 16:21:19 10/18/2017 18:36:19 Osteoarthritis of knee 455792024 M17.0 LEFT knee pain consistent with: Grade 1 medial and moderate patellofem oral compartmen t osteoarthr osis; medial meniscal derangemen t with mild extrusion Disorder o f rotator cuff 899359318 M75.102 [id number] Florencio Sheldon [facility] [address] [place] [address] 01/31/2018 18:22:24 02/02/2018 15:09:52 Neck pain 27418036 M54.2 Osteoarthr itis of knee 815526649 M17.0 LEFT knee pain consistent with: Grade 1 medial and moderate patellofem oral compartmen t osteoarthr osis; medial meniscal derangemen t with mild extrusion [id number] Florencio Sheldon [facility] [address] [place] [address] 02/15/2018 17:47:22 02/16/2018 14:54:59 Cervical spondylosis 395076763 M47.812 multilevel cervical spine facet joint arthropath y most severe at C6-7 to the right with more moderate changes at C4-5 and C5-6. Arthropath y of cervical spine facet joint 033083608 M46.92 [id number] Khadra Reyes [facility] 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 [place] [address] 05/13/2021 13:41:15 05/20/2021 14:32:27 Shoulder pain 08423741 M25.512 Hill-Sachs lesion 020604 001 S42.295A at today's office visit I discussed with the patient that she is currently under the care of [facility] in regards to her left shoulder she had a recent fracture which is only 4-week-old at this point time she needs to continue with care with [facility] regards to her Hill-Sachs fracture. She is going to obtain a EMG nerve conduction study for the numbness and tingling that is occurring in her left upper extremity. She will send that to us we will at that point time, with a determinat ion whether she is a candidate for treatment or not. Greater than 45 minutes face-to-fa ce visit with more than 50% of my time spent counseling the patient about their diagnosis including pathophysi ology and treatment options. [id number] GEORGETTE GARCIA U_MAIN OFFICE [address] [place] [address] 11/04/2021 14:55:21 11/04/2021 16:36:53 Health Concerns Section Related Observation LastModified by Organization Detai ls LastModified Time None Recorded Concern Status LastModified by Organization Details LastModified Time None Recorded Advance Directives Directive None Recorded Payers Encounter Date Sequence Insurance Name Policy Number Policy Lopez Covered Member ID Lopez Member ID Guarantor Name 01/31/2018 1 *SELF PAY* Maximino chaparro Boris 02/15/2018 1 *SELF PAY* Maximino rsha Boris 05/03/2018 1 *SELF PAY* Maximino rsha Boris 05/13/2021 1 [place] [id number] Laisha Boris [id number] Laisha Boris 11/04/2021 1 [place] [id number] Laisha Boris [id number] Laisha Boris Notes Date Note Type Note Provider Name and Address Organization Details Recorded Time 01/31/2018 text/html See Dictated NoteReported bypatient.Notes:SEE DICTATED NOTES Florencio coleman [employer] 02/02/2018 08:04:24 02/15/2018 text/html No interval quinones ge - See last visit note Florencio coleman [employer] 10/13/2018 07:51:33 05/03/2018 text/html Pt is a 58 y/o female interested in re-starting bio-identical hormone replacement. She has been on testosterone and estrogen pellets in the past, and was put on topical testosterone by this clinic prior to her BMAC treatment. Most recently, she was placed on alternating premarin and estrogen, a much lower dose of topical testosterone and progesterone was removed from her regiman by another doctor. She reported increased BP and overall not feeling well on premarin so she decided to stop all estrogen. She now c/o severe hot flashes, night sweats, is not sleeping well so is fatigued during the day and has no motivation. She also reports hx of depression/anxiety which has worsened the past few months although she explained that life has been difficult of late having been through knee surgery, stem cell treatments in her shoulder and a recent difficult move to an apartment. She had a of a family member 2 years ago which she feels started the downhill spiral. She states she just wants to feel good again and is wanting to start over with bio-identical hormone optimization. She is also interested in ALMI female injections as she reports stress urinary incontinence which began 1 year ago. Khadra Reyes [address], [place], [address], [employer], [employer] 05/03/2018 16:55:54 05/13/2021 text/html 61-year-old adam kohler comes in today complaining of pain and discomfort in her left shoulder that is been ongoing since 04/19/2021 when she fell onto concrete she sustained a Hill-Sachs lesion with a subluxation of the shoulder as well as a glenoid fracture. She was seen by [facility] and instructed that she did not need surgery would be conservative management. She is still having pain and discomfort her pain is constant, intermittent, stabbing, shooting and throbbing. She also experiences weakness and stiffness. She states daily use bothers her the most. Ice does help. She has tried rest, ice, compression, elevation, physical therapy, massage, exercise, pain medications, nonsteroidal anti-inflammatories, trigger point injections and she had a corticosteroid injection performed on Last week which provided her with minimal relief. patient is also been diagnosed with a reflex sympathetic dystrophy has a constitutional amount of problems and pain and discomfort. She rates her pain in the shoulder is a 4 to 5/10. She has pain in the neck which she rates a 6/10. She has pain radiating down to the arm as a 4/10. She has pain in the scapular area which she rates as a 7 to an 8/10. GEORGETTE GARCIA [address] [facility] [address], [place], [address], [employer], [employer] 05/14/2021 11:48:41 11/04/2021 text/html 61-year-old adam kohler who comes in today complaining of cervical spine pain and thoracic spine pain. Patient at this point time refuses to get x-rays and has them at home as well as several other documents that she is going to send in. GEORGETTE GARCIA [address] [facility] [address], [place], [address], [employer], [employer] 11/05/2021 09:42:39 OBGyn Episode No OBEpisode recorded.
--- OUTSIDE RECORDS SUMMARY | 2024-08-02 13:49 | XMS_ITS | Clinical Summary ---
Author Organization [facility] Address [address] [place] [address] Phone Care Team Providers Care Fence Erector Name Role Phone Shad Waldrop DO Primary Care Provider [phone] Medications No known medications Active Problems No [...] Health Maintenance Due Date Last Done Comments COLORECTAL SCREENING 2007 Colorectal Cancer Screening 2007 FIT-DNA Q 3 years 2007 FIT/FOBT Q 1 year 2007 Flex Sig/CT Colonography Q 5 years 2007 BREAST CANCER SCREENING 10/19/2022 10/20/19, 10/19/2021, 10/08/2021, Additional history exists INFLUENZA VACCINE (#1) 2023 0, 12/16/2018, 01/16/2018, Additional history exists DTAP/TDAP/TD VACCINES (2 - T d or Tdap) 12/22/2023 12/21/2013 RSV VACCINE (60+ or ) (1 - 1-dose 75+ series) 2037 ZOSTER VACCINE Completed 07/21/2018, 05/22/2018 Insurance BCBS BLUE PREFERRED Care Teams Fence Erector Relationship Specialty Start Date End Date Shad Waldrop DO [address] [place] [id number] PCP - General Internal Medicine 10/27/21
--- OUTSIDE RECORDS SUMMARY | 2024-08-02 13:49 | XMS_ITS | Encounter Summary ---
Author Organization [facility] Address [address] [place] [address] Care Team Providers Care String Cutter Name Role Phone Erica Carlisle MD Primary Care Provider [phone] Prince Osei MD Primary Care Provider [phone] Nhi Covarrubias MD PhD Unavailable [phone] Encounter Details Date Type Department Care Team (Late st Contact Info) Description 07/22/2022 Telephone [facility] [address] [facility] [address] [place], [place] [id number] Nhi Covarrubias MD PhD [address] [place], [place] [id number] Social History Tobacco Use Types Packs/Day Years [...] on file Legal Sex Female 10:04 PM COMPLETION ENGINEER Gender Identity Not on file Sexual Orientation Straight 05/22/2020 6: 40 PM COMPLETION ENGINEER documented as of this encounter Plan of Treatment Scheduled Procedures Name Priority Associated Diagnoses Date/Ti me COLONOSCOPY Encounter for screening for malignant neoplasm of colon documented as of this encounter Goals Goal Patient Goal Type Associated Problems Recent Progress Patient-Stated? Author CCM Chronic Pain Care Plan Chronic Care Management No change(06/11 3:12 PM COMPLETION ENGINEER) Sagar Gibson, RN Note: Problem: Chronic Pain Goals: 1. Minimize further functional decline 2. Maximize quality of life 3. Control pain Strategies: - Activity/exercise program recommendation - Conservative stepwise pain medicine strategy with multi-disciplinary approach - Recommend healthy lifestyle strategies and compensatory methods as needed documented as of this encounter Visit Diagnoses Not on filedocumented in this encounter Care Teams String Cutter Relationship Specialty Start Date End Date Erica Carlisle MD PCP - General Internal Medicine 07/14/22 09/30/22 Prince Osei MD PCP - General Family Practice 10/01/22 Nhi Covarrubias MD PhD [address] [place] [address] Anesthesiologist Anesthesiology 10/20/22 documented as of this encounter
--- OUTSIDE RECORDS SUMMARY | 2024-08-02 13:49 | XMS_ITS | Data Portability ---
Author Organization [place] - [facility] [employer], Main Office Address [address] [place] [address] Care Team Providers Care Staff Antisubmarine Officer Name Role Phone GRISELDA DOMINGO Primary Care Provider [phone] GRISELDA DOMINGO Referring Provider [phone] [place] MILAN Subcontract Manager Assessment Encounter Date Assessment Date Assessment LastModified by Organization Details LastModified Time 02/22/2024 02/22/2024 63-year-old female presents for her left shoulder. She previously saw Leslie Aguiar NP. 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 She currently sees a crayon painter still. She previously saw Dr. Rand for this problem as well. She reports having feelings of muscle spasms in her biceps and triceps area, she has been taking ibuprofen, currently rates her pain as 4/10. She has good range of motion 150/30/lower lumbar. Five in 5 rotator cuff strength. She has sensitivity with light touch throughout the shoulder and proximal arm. Full range of motion strength in the elbow. MRI was reviewed, demonstrating a SLAP tear, no other structural abnormalities seen We reviewed her MRI findings and discussed that there is nothing surgical that we would recommend. Her symptoms are likely coming from her CRPS. She should continue to follow-up with her crayon painter for this. I would recommend continue conservative management with medications, including gabapentin ibuprofen which were already ordered for her. She may follow-up with us as needed. [email or web address] Not available 02/22/2024 18:22:15 Plan of Treatment Reminders Order Date Submit Date Provider Last Modified By Organization Details Last Modified Time Details Appointments None recorded. Lab None recorded. Referral None recorded. Procedures None recorded. Surgeries septoplasty (SURG) 2023 024 [email or web address] Not available 4 16:39:18 Imaging None recorded. Medication Orders ipratropium bromide 42 mcg (0.06 %) nasal spray 2024 [facility] #[id number], [address], [place], [place], [id number], 17:02:17 Medrol (Aris) 4 mg tablets in a dose pack 2024 [facility] #75051, [address], [place], [place], [id number], 5 17:02:18 levofloxaci n 750 mg tablet 2024 [facility] #40299, [address] [facility], [place], [place], [id number], 5 17:02:16 Diflucan 150 mg tablet 2024 [facility] #04718, [address] [facility], [place], [place], [id number], 5 17:02:17 cefdinir 300 mg capsule 2023 024 [email or web address] [facility] #93352, [address] [facility], [place], [place], [id number], 5 11:42:34 cefdinir 300 mg capsule 2023 024 [email or web address] [facility] #32899, [address] [place] [address], [id number], 5 11:42:34 prednisone 20 mg tablet 2023 024 [email or web address] [facility] #89936, [address] [facility], [place], [place], [id number], 5 11:42:46 Diflucan 150 mg tablet 2023 024 [facility] #11053, [address], [place], [place], [id number], 4 15:24:34 Patient TargetsNo targets recorded. Patient Instructions Encounter Date Encounter Id Patient Instructions Last Modified By Organization Details Last Modified Time 03/01/2024 [id number] Patient will janet e cefdinir twice day for 10 days for antimicrobial coverage for sinusitis. She will take prednisone daily x5 days to decrease inflammation. Diflucan tablets ordered in case a Kesha infection is caused from her antibiotic use due to her history. She will obtain a Conrad-Hallpike test to assess for BPPV. She will have a sinus CT completed. An audiogram and tympanogram have been ordered. We will follow-up on these results become available. [email or web address] Not available 03/01/2024 15:44:58 05/01/2024 [id number] Discussed likely had a allergic reaction to the xylocaine with epinephrine that was used to infiltrate the septum bilaterally during surgery. Discussed at this point rotating Tylenol and Motrin as needed for pain management. Provided her with an Xhance nasal spray to be used daily for right Nare inflammation. Contact the office for any further questions and/or concerns. [email or web address] Not available 05/01/2024 12:40:43 05/21/2024 [id number] discussed that s he will be placed on Levaquin and Medrol for sinusitis management. Discussed black box warning of tendonitis with taking Levaquin and to notify the office if she develops any signs or symptoms. Also prescribed ipratropium bromide for rhinorrhea. Advised to stop taking Sudafed. Also advised to stop taking any NSAIDs while taking the Medrol Dosepak to reduce risk of gastric ulcer development. Did discuss ordering a repeat CT of her sinuses but due to the new year she would like to hold off on trial medication 1st before proceeding for further imaging. [email or web address] Not available 05/21/2024 17:10:57 Reason for Referral None Reported. Results Created Date Observation Date Name Description Value Unit Range Abnormal Flag Note LastModifiedBy Organization Detail LastModifiedTime 02/08/20 24 XR, shoul adali No observ ation record ed. [email or web address] [facility] [place] [address] [facility] [address], [place], [address], 02/08/2024 16:29:32 02/20/20 24 02/20/2024 MRI, upper extre mity, w/o contr ast No observ ation record ed. [email or web address] [facility] [address] [facility] [place], [address], 02/20/2024 16:55:40 03/07/20 24 03/07/2024 audio gram + tympa nogra m No observ ation record ed. [address] (Audiology) [address] [facility] [address], [place], [address], 03/14/2024 13:50:32 03/13/20 24 03/12/2024 CT, sinus es, w/o contr ast No observ ation record ed. [address] [facility] [address], [place], [address], 03/14/2024 13:50:33 03/14/20 24 03/14/2024 CT, sinus es, w/o contr ast No observ ation record ed. [facility] [address], [place], [address], 03/14/2024 17:21:16 Result Notes None recorded. Problems Name Problem SNOMED Code Status Onset Date Resolution Date Notes Provider Name and Address Organization Details Recorded Time Osteoarthr itis of bilateral hip joints 5333915924115 05 Active 2021 Not Available [facility] 3 12:46:07 Disorder of shoulder 973238840 Active Not Available [facility] 3 12:46:07 Bilateral hip joint pain 9979406619425 9100 Active 2021 Not Available [facility] 3 12:46:07 Prepatella r bursitis 07350828 Active Not Available [facility] 3 12:46:07 Current tear of medial cartilage AND/OR meniscus of knee Active Not Available [facility] 3 12:46:07 Osteoarthr itis of right hip joint 8995330028081 07 Active 2021 Not Available [facility] 3 12:46:07 Pain of left knee joint 1670729323412 07 Active 2021 Not Available [facility] 3 12:46:07 Pain in limb 96437709 Active Not Available [facility] 3 12:46:07 Pain of left shoulder joint 6826402894970 9109 Active 2023 Марина Bautista CNA null, [place] [facility] 4 15:43:36 Sensorineu ral hearing loss 68834801 Active 2023 Zaira López RN null, [place] [facility] 4 15:20:28 Bilateral tinnitus 5925493741370 Active 2023 MELVIN Abarca [address] [facility], [address], [address] , [facility] 4 15:20:56 Chronic sinusitis 97149059 Active 2023 MELVIN Abarca [address] [facility], [facility] [address], [place], [address] , [facility] 4 15:21:05 Chronic sinusitis 41616178 Active 2023 Zaira López RN null, [place] [facility] 4 15:21:24 Benign paroxysmal positional vertigo 350961739 Active 2023 Zaira López RN null, [place] [facility] 4 15:23:29 Benign paroxysmal positional vertigo 298624254 Active 2023 MELVIN Abarca [address], [facility] [address], [place], [address] , [facility] 4 15:23:30 Acute otitis media 5131054 Active 2023 Moon Reid null, [place] [facility] 4 17:16:39 Deviated nasal septum 698633182 Active 2023 Jack Sandy MD [address] [facility], [facility] [address], [place], [address] , [facility] 4 17:18:12 Candidiasi s of vagina 95509083 Active 2023 Moon coleman, [facility] 4 17:08:34 Acute sinusitis 97604142 Active 2023 Moon Reid null, [facility] 4 11:35:21 Postoperat mukesh pain 169992894 Active 2023 Jack Sandy MD [address] [facility], [facility] [address], [place], [address] , [facility] [employer] [facility] 4 17:32:28 Anterior rhinorrhea 247472044 Active 2024 MELVIN Abarca [address] [facility], [facility] [address], [place], [address] , [facility] [employer] [facility] 5 17:01:07 Problem Notes None recorded. Procedures Surgical History Date Name Laterality Status Provider Name and Address Organization Details Recorded Time 04/23/20 24 SEPTOPLASTY (SURG) completed Zaira López RN [facility] [employer] [facility] 05/01/2024 10:57:54 Hysterectomy completed Not Available [facility] 06/23/2022 12:45:19 Tonsillectomy completed Zaira López RN [facility] [employer] [facility] 03/01/2024 14:54:07 Knee completed Марина Bautista CNA [facility] 02/08/2024 15:39:49 Imaging Results Imaging Date Name Status LastModified by Organiz ation Details LastModified Time 02/08/2024 XR, shoulder completed [email or web address] [facility] [place] [address], [place], [address], 02/08/2024 16:29:32 02/20/2024 MRI, upper extremity, w/o contrast completed [email or web address] [facility] [address] [facility], [place], [address], 02/20/2024 16:55:40 03/07/2024 audiogram + tympanogram completed [address] (Audiology) [address] [facility] [address] [place] [address], [address], 03/14/2024 13:50:32 03/12/2024 CT, sinuses, w/o contrast completed [address] [facility] [address], [place], [address], 03/14/2024 13:50:33 03/14/2024 CT, sinuses, w/o contrast completed [facility] [address], [place], [address], 03/14/2024 17:21:16 Procedure Notes None recorded. Medical Equipment None Reported. Allergies Allergen ID Allergen Name Allergen Category Reaction Reaction Severity Criticality Documentation Date Start Date Code Code System Note Provider Name and Address Organization Details Recorded Time 02908 Substance with sulfonami de structure and antibacte rial mechanism of action (substanc e) medicatio n rash Not available Not available 06/23/2022 50949 8003 SNOMED Not Available [facility] 3 12:49:16 72863 Latex (substanc e) environme nt,medica tion rash Not available Not available 06/23/2022 01524 8007 SNOMED Not Available [facility] 3 12:49:17 22912 lidocaine medicatio n rash Not available Not available 02/08/2024 6387 RxNorm A PRESE RVATI VE THAT IS IN LIDOC ALEX ELENA Chase [facility] [employer] 4 14:53:05 55708 propofol medicatio n Not available Not available Not available 03/01/2024 8782 RxNorm PAIN ELENA Chase, [facility] [employer] [facility] [employer] 4 14:53:31 Medications Name Sig Start Date Stop Date Status Note LastModified by Organization Details LastModified Time Prescriptio n - Clarificati on active Not Available Not Available Not Available cyclobenzap rine 10 mg tablet 05/17 completed Not Available Not Available Not Available amoxicillin 500 mg capsule TAKE 1 CAPSULE THREE TIMES DAILY UNTIL ALL TAKEN 02/07 completed Not Available Not Available Not Available Sabula Thyroid 60 mg tablet TAKE 1 TABLET PO DAILY BEFORE A MEAL 12/05 completed Not Available Not Available Not Available fluconazole 100 mg tablet 12/05 completed Not Available Not Available Not Available atorvastati n 40 mg tablet TAKE 1 TABLET BY MOUTH EVERY DAY AT NIGHT 02/06 completed Not Available Not Available Not Available methocarbam ol 500 mg tablet active Not Available Not Available Not Available terbinafine HCl 1 % topical cream APPLY A SMALL AMOUNT TO THE AFFECTED AREA BID 05/17 completed Not Available Not Available Not Available nystatin 100,000 unit/mL oral suspension SWISH AND SWALLOW 5 ML BY MOUTH FOUR TIMES DAILY FOR 7 DAYS 02/07 completed Not Available Not Available Not Available carvedilol 6.25 mg tablet 05/24 completed Not Available Not Available Not Available Sabula Thyroid 90 mg tablet TK 1 T PO QAM ON EMPTY STOMACH 12/05 completed Not Available Not Available Not Available cefuroxime axetil 250 mg tablet TK 1 T PO BID 05/17 completed Not Available Not Available Not Available atorvastati n 20 mg tablet TAKE 1 TABLET BY MOUTH EVERY EVENING 08/07 completed Not Available Not Available Not Available tizanidine 2 mg tablet TAKE 1/2 TABLET BY MOUTH EVERY 4 HOURS NEEDED FOR MUSCLE SPASM 12/23 completed Not Available Not Available Not Available clindamycin HCl 300 mg capsule TK 1 C PO Q 8 H 08/07 completed Not Available Not Available Not Available triazolam 0.25 mg tablet TK 1 T 1 HOUR PRIOR TO APPOINTME NT 12/05 completed Not Available Not Available Not Available triamcinolo ne acetonide 0.5 % topical cream 12/05 completed Not Available Not Available Not Available azithromyci n 250 mg tablet TK 2 TS PO ON DAY 1, THEN TK 1 T PO D FOR 4 DAYS 02/07 completed Not Available Not Available Not Available ibuprofen 800 mg tablet TAKE 1 TABLET BY MOUTH THREE TIMES DAILY NEEDED FOR PAIN active Not Available Not Available No t Available tizanidine 4 mg tablet TK 1 T PO TID PRF MUSCLE SPASTICIT Y active Not Available Not Available No t Available benzonatate 200 mg capsule TAKE 1 CAPSULE BY MOUTH THREE TIMES DAILY NEEDED FOR COUGH 05/24 completed Not Available Not Available Not Available cephalexin 250 mg capsule 05/17 completed Not Available Not Available Not Available hydrocodone 5 mg-acetamin ophen 325 mg tablet TAKE 1 TABLET BY MOUTH EVERY 4 TO 6 HOURS NEEDED FOR PAIN active Not Available Not Available No t Available tretinoin 0.025 % topical cream MANUEL AA [facility] UTD 12/05 completed Not Available Not Available Not Available fluocinonid e 0.05 % topical gel APPLY TWICE DAILY TO ORAL ULCERS 02/06 completed Not Available Not Available Not Available minocycline 100 mg capsule TAKE 1 CAPSULE BY MOUTH TWICE DAILY WITH FOOD. DO NOT TAKE ON AN EMPTY STOMACH 05/24 completed Not Available Not Available Not Available fluconazole 200 mg tablet 12/05 completed Not Available Not Available Not Available meloxicam 15 mg tablet TK 1 T PO QD 12/05 completed Not Available Not Available Not Available ondansetron HCl 4 mg tablet TAKE 1 TABLET BY MOUTH EVERY 8 HOURS NEEDED FOR NAUSEA OR VOMITING 02/07 completed Not Available Not Available Not Available bupivacaine HCl 0.5 % (5 mg/mL) injection solution In office injection administe red by the provider 12/23 completed Not Available Not Available Not Available prednisone 20 mg tablet TAKE 2 TABLETS BY MOUTH DAILY active Not Available Not Available No t Available spironolact one 100 mg tablet TK 1 T PO D 05/17 completed Not Available Not Available Not Available pimecrolimu s 1 % topical cream APPLY A THIN LAYER TO THE AFFECTED AREA TWICE DAILY 02/07 completed Not Available Not Available Not Available clindamycin HCl 150 mg capsule 12/05 completed Not Available Not Available Not Available Diflucan 150 mg tablet Take 1 tablet every day by oral route for 1 day. 2024 active Not Available Not Available Not Avai lable sumatriptan 50 mg tablet TAKE 1 TABLET BY MOUTH AT THE ONSET OF HEADACHE MAY REPEAT IN 2HOURS IF NO RELEIF MAX OF 4 TABLET IN 24 HOURS 05/05 completed Not Available Not Available Not Available penicillin V potassium 500 mg tablet TAKE 1 TABLET BY MOUTH FOUR TIMES DAILY 08/07 completed Not Available Not Available Not Available hydralazine 25 mg tablet active Not Available Not Available Not Available amlodipine 2.5 mg tablet TAKE 1 TABLET BY MOUTH DAILY 03/13 completed Not Available Not Available Not Available nifedipine ER 30 mg tablet,exte nded release 12/23 completed Not Available Not Available Not Available acetaminoph en 300 mg-codeine 30 mg tablet 11/27 completed Not Available Not Available Not Available ciprofloxac in 250 mg tablet TAKE 1 TABLET BY MOUTH EVERY 12 HOURS FOR 3 DAYS 02/07 completed Not Available Not Available Not Available amlodipine 5 mg tablet TAKE 1 TABLET BY MOUTH DAILY 08/07 completed Not Available Not Available Not Available valacyclovi r 500 mg tablet TAKE 1 TABLET BY MOUTH TWICE DAILY 02/07 completed Not Available Not Available Not Available ciprofloxac in 500 mg tablet TAKE 1 TABLET BY MOUTH EVERY 12 HOURS 02/07 completed Not Available Not Available Not Available sulfamethox azole 800 mg-trimetho prim 160 mg tablet TK 1 T PO BID 05/17 completed Not Available Not Available Not Available tramadol 50 mg tablet TK 1 T PO Q 6 H PRN 05/24 completed Not Available Not Available Not Available nystatin-tr iamcinolone 100,000 unit/gram-0 .1 % topical ointment 12/05 completed Not Available Not Available Not Available nortriptyli ne 25 mg capsule 05/04 completed Not Available Not Available Not Available meloxicam 7.5 mg tablet Take 1 tablet every day by oral route. active Not Available Not Available No t Available alprazolam 0.5 mg tablet TAKE 1 TABLET BY MOUTH 2 HOURS BEFORE BIOPSY APPOMITME NT 05/24 completed Not Available Not Available Not Available amoxicillin 875 mg tablet TK 1 T PO BID FOR 10 DAYS 03/13 completed Not Available Not Available Not Available alprazolam 0.25 mg tablet TAKE 1 TABLET BY MOUTH EVERY DAY AT BEDTIME NEEDED FOR RINGING IN EARS active Not Available Not Available No t Available lorazepam 0.5 mg tablet TAKE 1 TABLET BY MOUTH ONCE 45 MINUTES BEFORE PROCEDURE 05/24 completed Not Available Not Available Not Available estradiol 1 mg tablet TK 1 T PO D active Not Available Not Available No t Available temazepam 15 mg capsule TK ONE C PO QHS PRF INSOMNIA active Not Available Not Available No t Available clindamycin 1 % topical gel APPLY THIN LAYER TOPICALLY TO THE AFFECTED AREA TWICE DAILY 02/07 completed Not Available Not Available Not Available aspirin 325 mg tablet,selene yed release TK 1 T PO BID 05/17 completed Not Available Not Available Not Available ciprofloxac in 0.3 % eye drops INSTILL 1 DROP INTO BOTH EYES Q 4 H WHILE AWAKE 05/17 completed Not Available Not Available Not Available Kenalog 10 mg/mL suspension for injection In office injection administe red by the provider 02/[address] [facility]: [phone] Not Available Not Available Not Available diazepam 2 mg tablet TK 1 T PO ONE HOUR PRIOR TO APPOINTME NT. 12/05 completed Not Available Not Available Not Available benzonatate 100 mg capsule TAKE 1 CAPSULE BY MOUTH THREE TIMES DAILY NEEDED FOR COUGH 02/07 completed Not Available Not Available Not Available doxycycline monohydrate 100 mg capsule TK ONE C PO BID 05/17 completed Not Available Not Available Not Available hydrocodone 7.5 mg-acetamin ophen 325 mg tablet Take 1 tablet every 6 hours by oral route. active Not Available Not Available No t Available cephalexin 500 mg capsule TAKE 1 CAPSULE BY MOUTH EVERY 12 HOURS FOR 10 DAYS 05/04 completed Not Available Not Available Not Available buspirone 10 mg tablet 12/05 completed Not Available Not Available Not Available lisinopril 10 mg tablet TAKE 1 TABLET BY MOUTH DAILY 05/05 completed Not Available Not Available Not Available losartan 25 mg tablet TK 1 T PO QD 12/05 completed Not Available Not Available Not Available progesteron e micronized 200 mg capsule TAKE 1 CAPSULE BY MOUTH EVERY DAY active Not Available Not Available No t Available niacin 500 mg tablet TK 2 TS PO QAM WITH FOOD 12/05 completed Not Available Not Available Not Available dexamethaso ne 0.75 mg tablet 12/05 completed Not Available Not Available Not Available gabapentin 300 mg capsule 05/24 completed Not Available Not Available Not Available triamterene 37.5 mg-hydrochl orothiazide 25 mg tablet TAKE 1 TABLET BY MOUTH EVERY MORNING 03/13 completed Not Available Not Available Not Available omeprazole 20 mg capsule,del ayed release TK 1 C PO BID BEFORE MEALS 12/05 completed Not Available Not Available Not Available estradiol 2 mg tablet TAKE 1 TABLET BY MOUTH DAILY 05/24 completed Not Available Not Available Not Available amoxicillin 250 mg capsule TK ONE C PO Q 8 H TAT 11/27 completed Not Available Not Available Not Available hydroxyzine HCl 25 mg tablet TK 1 T PO Q 6 H PRN 08/07 completed Not Available Not Available Not Available hydrochloro thiazide 25 mg tablet TAKE 1 TABLET BY MOUTH TWICE DAILY active Not Available Not Available No t Available mupirocin 2 % topical ointment MANUEL SML AMT EXT AA BID FOR 2 WKS THEN STOP 12/05 completed Not Available Not Available Not Available zaleplon 10 mg capsule 05/24 completed Not Available Not Available Not Available zolpidem 5 mg tablet TK 1 T PO HS PRF EDUCATIONAL INSTITUTION PRESIDENT 05/04 completed Not Available Not Available Not Available furosemide 20 mg tablet TAKE 1 TABLET BY MOUTH EVERY DAY 02/06 completed Not Available Not Available Not Available Sabula Thyroid 30 mg tablet TK 1 T PO QD B MEALS 12/05 completed Not Available Not Available Not Available gabapentin 100 mg capsule 02/07 completed Not Available Not Available Not Available estradiol 0.5 mg tablet TAKE 3 TABLETS BY MOUTH EVERY DAY 05/24 completed Not Available Not Available Not Available metoprolol succinate ER 25 mg tablet,exte nded release 24 hr TAKE 1 TABLET BY MOUTH EVERY DAY active Not Available Not Available No t Available ergocalcife rol (vitamin D2) 1,250 mcg (50,000 unit) capsule TAKE 1 CAPSULE BY MOUTH EVERY MONTH 02/07 completed Not Available Not Available Not Available diazepam 10 mg tablet 12/05 completed Not Available Not Available Not Available ibuprofen 600 mg tablet TAKE 1 TABLET BY MOUTH THREE TIMES DAILY 05/05 completed Not Available Not Available Not Available cefuroxime axetil 500 mg tablet TK 1 T PO BID 05/17 completed Not Available Not Available Not Available levofloxaci n 500 mg tablet TK 1 T PO Q 24 HOURS 05/17 completed Not Available Not Available Not Available levofloxaci n 750 mg tablet TAKE 1 TABLET BY MOUTH EVERY DAY FOR 7 DAYS active Not Available Not Available No t Available methylpredn isolone 4 mg tablets in a dose pack FOLLOW PACKAGE DIRECTION S active Not Available Not Available No t Available ipratropium bromide 42 mcg (0.06 %) nasal spray USE 2 SPRAYS IN EACH NOSTRIL THREE TIMES DAILY active Not Available Not Available No t Available doxycycline hyclate 20 mg tablet TAKE 1 TABLET BY MOUTH TWICE DAILY 02/07 completed Not Available Not Available Not Available cefdinir 300 mg capsule TAKE 1 CAPSULE BY MOUTH EVERY 12 HOURS 05/01 completed Not Available Not Available Not Available fluticasone propionate 50 mcg/actuati on nasal spray,suspe nsion SHAKE LIQUID AND USE 1 SPRAY IN EACH NOSTRIL EVERY DAY 12/23 completed Not Available Not Available Not Available metronidazo le 0.75 % topical gel APPLY TWICE DAILY TO FACE 02/06 completed Not Available Not Available Not Available doxycycline hyclate 100 mg tablet TK 1 T PO QD 05/17 completed Not Available Not Available Not Available diazepam 5 mg tablet TK 1 T PO 1 HOUR BEFORE APPT 08/07 completed Not Available Not Available Not Available amoxicillin 875 mg-potassiu m clavulanate 125 mg tablet TAKE 1 TABLET BY MOUTH TWICE DAILY active Not Available Not Available No t Available Ventolin HFA 90 mcg/actuati on aerosol inhaler USE 2 PUFFS BY MOUTH EVERY 6 HOURS NEEDED FOR BRONCHOSP ASM 05/24 completed Not Available Not Available Not Available neomycin 3.5 mg/g-polymy jamie B 10,000 unit/g-dexa meth 0.1 % eye oint MANUEL A THIN LAYER INTO LEFT EYE QHS FOR 7 DAYS 12/05 completed Not Available Not Available Not Available clindamycin 1 % lotion APPLY THIN LAYER TOPICALLY TO FACE EVERY NIGHT AT BEDTIME 02/07 completed Not Available Not Available Not Available ezetimibe 10 mg tablet TAKE 1 TABLET BY MOUTH DAILY active Not Available Not Available No t Available cyclobenzap rine 5 mg tablet TAKE 1-2 TABLETS PO BID PRN 08/07 completed Not Available Not Available Not Available Premarin 1.25 mg tablet 05/17 completed Not Available Not Available Not Available ciprofloxac in 0.3 %-dexametha sone 0.1 % ear drops,suspe nsion INSTILL 4 DROPS INTO AFFECTED EAR(S) BY OTIC ROUTE 2 TIMES PER DAY FOR 7 DAYS 05/01 completed Not Available Not Available Not Available rosuvastati n 40 mg tablet 05/24 completed Not Available Not Available Not Available erythromyci n with ethanol 2 % topical solution APPLY TO FACE BID FOR ACNE 05/17 completed Not Available Not Available Not Available nitrofurant oin monohydrate /macrocryst als 100 mg capsule TAKE 1 CAPSULE BY MOUTH TWICE DAILY FOR 7 DAYS 02/07 completed Not Available Not Available Not Available duloxetine 30 mg capsule,del ayed release TAKE 1 CAPSULE BY MOUTH DAILY active Not Available Not Available No t Available duloxetine 60 mg capsule,del ayed release TK 1 C PO D 12/05 completed Not Available Not Available Not Available metronidazo le 1 % topical gel 02/07 completed Not Available Not Available Not Available EEMT 1.25 mg-2.5 mg tablet TK 1 T PO QD 05/17 completed Not Available Not Available Not Available chlorhexidi ne gluconate 0.12 % mouthwash SWISH 15 ML TID 12/05 completed Not Available Not Available Not Available sodium fluoride 1.1 % dental paste active Not Available Not Available Not Available lidocaine (PF) 10 mg/mL (1 %) injection solution In office injection administe red by the provider 05/[address] [facility]: [phone] Not Available Not Available Not Available cholecalcif whitley (vitamin D3) 1,250 mcg (50,000 unit) capsule TAKE 1 CAPSULE BY MOUTH EVERY 2 WEEKS active Not Available Not Available No t Available omeprazole 20 mg tablet,selene yed release TK 1 C PO D 05/17 completed Not Available Not Available Not Available Neilmed Sinus Rinse Complete with packet Take 1 packet as needed by nasal route. 2023 active Not Available Not Available Not Avai lable lubiproston e 8 mcg capsule active Not Available Not Available Not Available diclofenac 1 % topical gel APPLY 2 GRAMS TOPICALLY TO THE AFFECTED AREA THREE TIMES DAILY 05/24 completed Not Available Not Available Not Available Gavilyte-C 240 gram-22.72 gram-6.72 gram-5.84 gram oral solution active Not Available Not Available Not Available Gavilax 17 gram/dose oral powder MIX 17 GM WITH 8 OZ GLASS OF WATER AND DRINK DAILY active Not Available Not Available No t Available niacin ER 500 mg tablet,exte nded release TK 2 TS PO QD 12/05 completed Not Available Not Available Not Available ropivacaine (PF) 5 mg/mL (0.5 %) injection solution In office injection administe red by the provider 02/07 completed Not Available Not Available Not Available Trulance 3 mg tablet TAKE 1 TABLET BY MOUTH DAILY active Not Available Not Available No t Available Fluarix Quad (PF) 60 mcg (15 mcg x 4)/0.5 mL IM syringe ADM 0.5ML IM UTD 12/05 completed Not Available Not Available Not Available Vitals Date Recorded Body height Body mass index (BMI) Body weight Pain severity - 0-10 verbal numeric rating [Score] - Reported Provider Name and Address Organization Details Last Updated DateTime 02/22/2024 170.18 cm 23.5 kg/m2 92378.86 g 4 Stacey Escobedo Prince [facility] [employer] [facility] 02/22/2024 15:45:49 Date Recorded Body height Body mass index (BMI) Body weight Body temperature Provider Name and Address Organization Details Last Updated DateTime 03/01/2024 170.18 cm 25.1 kg/m2 22729.78 g 98.1 [degF] Zaira López RN [facility] [employer] [facility] 03/01/2024 14:51:53 Date Recorded Body height Body mass index (BMI) Body weight Body temperature Provider Name and Address Organization Details Last Updated DateTime 03/15/2024 170.18 cm 25.8 kg/m2 69823.74 g 98 [degF] Zaira López RN [facility] [employer] [facility] 03/15/2024 16:51:03 Date Recorded Body height Body mass index (BMI) Body weight Body temperature Provider Name and Address Organization Details Last Updated DateTime 05/01/2024 170.18 cm 24.7 kg/m2 02312.59 g 98 [degF] Zaira López RN [facility] [employer] [facility] 05/01/2024 11:45:34 Date Recorded Body height Body mass index (BMI) Body weight Body temperature Provider Name and Address Organization Details Last Updated DateTime 05/21/2024 170.18 cm 24.7 kg/m2 32122.88 g 98 [degF] ELENA Chase - [facility] 05/21/2024 16:02:56 Social History Question Answer Notes LastModified by Organizat ion Details LastModified Time Tobacco Smoking Status Never Smoker Not Available [employer] 06/23/2022 12:45:10 What Is Your Level Of Alcohol Consumption? None [id number] Information not available 06/23/2022 What Was The Date Of Your Most Recent Tobacco Screening? 08/21/2020 [id number] Information not available 06/23/2022 Sex: Unknown Functional Status None recorded. Mental Status None recorded. Family History Relationship Description Onset Age of this Age Resolved Age Notes LastModified by Organization Details LastModified Time Father Heart disease [email or web address] Not available 2023 15:37:30 Father Hypertensive disorder [email or web address] Not available 2023 15:37:52 Unspecified Relation Family history of stroke [email or web address] Not available 10/2024 11:39:17 Mother Family history of malignant neoplasm [email or web address] Not available 10/2024 11:39:17 Mother Heart disease [email or web address] Not available 2023 15:37:35 Mother Hypertensive disorder [email or web address] Not available 2023 15:37:56 Mother Diabetes mellitus [email or web address] Not available 2023 15:38:37 Medical History Condition Response ARTHRITIS Y URINARY/BLADDER/KIDNEY PROBLEMS Y HYPERTENSION Y Gynecological HistoryNo gynecological history recorded. Obstetrics History GPAL:G 0 P 0 0 0 0 Past Encounters Encounter ID Performer Location Encounter Start Date Encounter Closed Date Diagnosis/Indication Diagnosis SNOMED-CT Code Diagnosis ICD10 Code Diagnosis Note [id number] [facility] [address] [address] 08/07/2020 00:00:00 08/07/2020 16:34:23 [id number] [facility] [address] [address] 08/21/2020 00:00:00 08/25/2020 12:26:22 [id number] [facility] [address] [place] [address] 03/13/2021 00:00:00 03/13/2021 11:34:40 [id number] [facility] [address] [place] [address] 05/04/2021 00:00:00 05/05/2021 19:32:07 [id number] [facility] [address] [place] [address] 05/05/2021 00:00:00 05/05/2021 16:48:47 [id number] [facility] [address] [place] [address] 05/20/2021 00:00:00 05/20/2021 17:13:00 [id number] [facility] [address] [place] [address] 06/03/2021 00:00:00 06/03/2021 14:00:41 [id number] [facility] [address] [place] [address] 12/23/2021 00:00:00 12/23/2021 17:20:00 [id number] [facility] [address] [place] [address] 03/17/2022 00:00:00 03/17/2022 15:50:21 [id number] Leslie Aguiar NP [facility] [address] [place] [address] 02/08/2024 15:05:49 02/08/2024 16:27:15 Pain of left shoulder joint 1505198014 7345033 M25.016 [id number] Ramiro Haas MD [facility] [address] [place] [address] 02/22/2024 15:40:08 02/22/2024 16:40:48 Pain of left shoulder joint 6587016777 [id number] M25.876 [id number] MELVIN Abarca [facility] [place] [address] [place] [address] 03/01/2024 14:32:53 03/01/2024 15:45:34 Bilateral tinnitus 9495760176 102 H93.13 Chronic sinusitis 770631 00 J32.9 Benign par oxysmal positional vertigo 063146792 H81.10 [id number] Jack Sandy MD [facility] [place] [address] [place] [address] 03/15/2024 16:31:52 03/21/2024 10:19:54 Deviated nasal septum 775675847 J34.2 [id number] MELVIN Abarca [facility] [place] [address] [place] [address] 05/01/2024 11:39:06 05/01/2024 12:41:24 Postoperative visit 064275714 Z48.89 04/23/2024 postoperat mukesh from a septoplast y with balloon assist. [id number] MELVIN Abarca [facility] [place] [address] [place] [address] 05/21/2024 15:42:14 05/21/2024 17:11:28 Chronic sinusitis 55389273 J32.9 Anterior rhinorrhea 2772 67627 J34.89 Health Concerns Section Related Observation LastModified by Organization Detai ls LastModified Time None Recorded Concern Status LastModified by Organization Details LastModified Time None Recorded Advance Directives Directive None Recorded Payers Encounter Date Sequence Insurance Name Policy Number Policy Lopez Covered Member ID Lopez Member ID Guarantor Name 02/22/2024 1 [place] [id number] Laisha L Boris [id number] Laisha L Boris 03/01/2024 1 [place] [id number] Laisha L Boris [id number] Laisha L Boris 03/15/2024 1 [place] [id number] Laisha L Boris [id number] 16 Laisha L Boris 05/01/2024 1 [place] [id number] Laisha L Boris [id number] 16 Laisha L Boris 05/21/2024 1 [place] [id number] Laisha Escalante [id number] 16 Laisha Lima Boris Notes Date Note Type Note Provider Name and Address Organization Details Recorded Time 03/01/2024 text/html This patient has a past medical history significant for arthritis, and HTN. she presents to the office with a complaint of vertigo onset approximately 1.5 weeks ago. She reports that her vertigo is triggered with head movements and leaning down to pick things up. She denies use of any xttu-lwt-jgwipej medications for symptom relief. She also reports that she has had tinnitus, bilaterally for many years however she sustained a fall and her ringing has gotten worse. She notes that she does follow with pain management for shoulder and back related concerns and has been taking high doses of ibuprofen for quite some time. She notes that when she has taken ibuprofen this has worsened her tinnitus and stating that the ringing becomes much more loud and prominent. She states that she has not been taking ibuprofen for approximately 2 weeks and has been taking Tylenol instead. Her primary has prescribed her alprazolam to be taken at bedtime to help with the tinnitus. She has not had an audiogram completed. She also reports chronic sinus related issues for many years. States that she has been on multiple rounds of antibiotics and steroids in the past for treating sinus infections. she reports frequent sinus pressure and congestion. She does report that sometime ago she had a root canal that was in properly done. This has affected her right upper teeth causing irritation to her right maxillary sinus. She is following with shop blacksmith for this concern. She states that her tinnitus has become increasingly worse on the left versus the right. We will obtain a sinus CT. MELVIN Abarca [address], [place], [address], [employer] 03/01/2024 15:45:03 03/15/2024 text/html This patient has a history of chronic sinusitis and has a history of nasal polyps in the remote past. She does have a dental related right maxillary sinusitis. A CT was done which demonstrates thickening of the right maxillary sinusitis and left septal deviation Jack Sandy MD [address], [place], [address], [employer] 03/15/2024 17:19:50 05/01/2024 text/html This patient is presenting to the office for a postoperative visit from a septoplasty with balloon assist that was completed on 04/23/2024. She notes that postoperatively she developed significant pruritus from head to toe. She states that she contacted the surgery center in which they noted that her symptom was not anesthesia related. In review of her allergies in comparison to her operative report she was administered xylocaine with epinephrine that was infiltrated into the septum bilaterally. She does have a known allergy to lidocaine that does induce a rash. She states that her pruritus subsided 4 days postoperatively with use of loratadine that she was taking 3 times a day per the pharmacy recommendation as she is unable to take Benadryl. She does report that the night of surgery she had inadvertently blew her nose in which a clot was removed from her right nasal passage. She presents with the clot at the time of her appointment that she placed into a Ziploc bag. Reviewing the clot it was found that this was her Nasacort packing that was placed and dislodged after blowing her nose. She also reports persistent nasal pain on her right side versus her left. She states that after completing the prescribed hydrocodone. She was unable to reach anybody at the office and so she contacted her dentist on day 3 who prescribed her a short course of hydrocodone. She states that currently she has been taking Tylenol every 6 hours with mild to moderate relief of pain. Zaira Croft, MANUFACTURER REPRESENTATIVE [address] [facility], [facility] [address], [place], [address], [facility] [employer] 05/03/2024 10:10:29 05/21/2024 text/html This patient pre sents to the office for a follow-up due to persistent nasal congestion and sinus pressure that has been persistent since her septoplasty on 04/23/2024. She reports significant discomfort to her right maxillary/frontal sinus with teeth ache . She states it is difficult to smile or talk for long periods of time due to the dull ache that never goes away. she states that she has been taking ibuprofen without symptom relief. She does note that she has a wisdom tooth affected on the right lower side in which she is seeing an oral surgeon for a consultation on 06/20/2024. She notes that her PCP had placed her on Augmentin for 7 days along with prednisone but she notes that she only took the prednisone for 3 days for fear of a lowered immune response. Her PCP also advised her to use Flonase in which she has only used a handful of times. She does also report persistent rhinorrhea in which she has been taking Sudafed pretty often. Zaira Croft, MANUFACTURER REPRESENTATIVE [address] [facility], [facility] [address], [place], [address], [facility] [employer] [facility] 05/21/2024 17:11:02 OBGyn Episode No OBEpisode recorded.
--- OUTSIDE RECORDS SUMMARY | 2024-08-02 13:49 | XMS_ITS | Encounter Summary ---
Author Organization [facility] Healthcare Address [address] [place] [address] Care Team Providers Care Arts Administrator Or Manager Name Role Phone Prince Osei MD Primary Care Provider [phone] Nhi Covarrubias MD PhD Unavailable [phone] Encounter Details Date Type Department Care Team (Late st Contact Info) Description 05/16/2023 Telephone [facility] [place] [facility] [address] [facility] [address] [place] [address] Nhi Covarrubias MD PhD [address] [place], [place] [id number] Social History Tobacco Use Types Packs/Day Years [...] on file 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 Author CCM Chronic Pain Care Plan Chronic Care Management No change(06/11 3:12 PM SENIOR PRODUCTION SUPERVISOR) No Sagar Rich, ELENA Note: Problem: Chronic Pain Goals: 1. Minimize further functional decline 2. Maximize quality of life 3. Control pain Strategies: - Activity/exercise program recommendation - Conservative stepwise pain medicine strategy with multi-disciplinary approach - Recommend healthy lifestyle strategies and compensatory methods as needed documented as of this encounter Visit Diagnoses Not on filedocumented in this encounter Care Teams Arts Administrator Or Manager Relationship Specialty Start Date End Date Prince Osei MD PCP - General Family Practice 10/01/22 Nhi Covarrubias MD PhD [address] [place] [address] Anesthesiologist Anesthesiology 10/20/22 documented as of this encounter
--- OUTSIDE RECORDS SUMMARY | 2024-08-02 13:49 | XMS_ITS | Continuity of Care Document ---
Author Organization [facility] Address [address] [place] [address] [address] [place] [address] Phone Care Team Providers Care Powerhouse Engineer Name Role Phone Adame OD, Nadir Unavailable Unavailable Procedures Procedure Date Post-op Follow-up Visit Eye Exam, New Patient Refraction Advance Directives Directive Yes / No Effective Date File Name No Information Encounters Encounter Description Practice Location Reason(s) For Visit Diagnoses Date Provider Providers Copied on Encounter [facility], [address] [place] [address] [address], [place], [place], [id number], tel:[phone] [facility] No Information 8 9 Adame OD Nadir. [address] [facility] , [address], [place], [address], [place]. tel:[phone] [facility], [address] [place] [address] [address], [place], [place], [id number], tel:[phone] [facility] [place] No Information 8200 9 Adame OD Nadir. [address] [facility] , [address], [place], [address], [place]. tel:[phone] Family History Family Member Type Diagnosis Age At Onset No Information Payers Payer name Insurance type Covered constitution party ID Authoriza tion(s) No Information Social History [...]
--- OUTSIDE RECORDS SUMMARY | 2024-08-02 13:49 | XMS_ITS | Encounter Summary ---
Author Organization [facility] Healthcare Address [address] [place] [address] Care Team Providers Care Professor Of Physical Education Name Role Phone Jordon Fields MD Primary Care Provider [phone] Shad Waldrop DO Primary Care Provider [phone] Erica Carlisle MD Primary Care Provider [phone] Prince Osei MD Primary Care Provider [phone] Nhi Covarrubias MD PhD Unavailable [phone] Encounter Details Date Type Department Care Team (Late st Contact Info) Description 08/26/2021 Telephone [facility] [place] [facility] [address] [facility] [address] [place], [place] [id number] Daljit Smart MD [address] [facility] [address] [place] [address] Social History Tobacco Use Types [...] on file 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 Author CCM Chronic Pain Care Plan Chronic Care Management No change(06/11 3:12 PM SUPERVISOR POULTRY FARM) No Sagar Rich RN Note: Problem: Chronic Pain Goals: 1. Minimize further functional decline 2. Maximize quality of life 3. Control pain Strategies: - Activity/exercise program recommendation - Conservative stepwise pain medicine strategy with multi-disciplinary approach - Recommend healthy lifestyle strategies and compensatory methods as needed documented as of this encounter Visit Diagnoses Not on filedocumented in this encounter Care Teams Professor Of Physical Education Relationship Specialty Start Date End Date Jordon Fields MD [address] [address] PCP - General Internal Medicine 06/22/21 09/24/21 Shad Waldrop DO [address] [address] PCP - General Internal Medicine 09/25/21 07/13/22 Erica Carlisle MD [address] [address] PCP - General Internal Medicine 07/14/22 09/30/22 Prince Osei MD [address] [address] PCP - General Family Practice 10/01/22 Nhi Covarrubias MD PhD [address] [place] [address] Anesthesiologist Anesthesiology 10/20/22 documented as of this encounter
--- OUTSIDE RECORDS SUMMARY | 2024-08-02 13:49 | XMS_ITS | Encounter Summary ---
Author Organization [facility] Healthcare Address [address] [facility] [place] [address] Care Team Providers Care Tool Planner Name Role Phone Shad Waldrop Primary Care Provider [phone] Erica Carlisle MD Primary Care Provider [phone] Prince Osei MD Primary Care Provider [phone] Nhi Covarrubias MD PhD Unavailable [phone] Reason for Visit * Reason Onset Date Comments Appointment 04/14/2022 Encounter Details Date Type Department Care Team (Late st Contact Info) Description 04/14/2022 Telephone [facility] [place] [facility] [address] [facility] [address] [place] [address] Nhi Covarrubias MD PhD [address] [place] [address] Appointment Social History Tobacco Use [...] on file 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 Author CCM Chronic Pain Care Plan Chronic Care Management No change(06/11 3:12 PM HOG RAISER) No Sagar Rich RN Note: Problem: Chronic Pain Goals: 1. Minimize further functional decline 2. Maximize quality of life 3. Control pain Strategies: - Activity/exercise program recommendation - Conservative stepwise pain medicine strategy with multi-disciplinary approach - Recommend healthy lifestyle strategies and compensatory methods as needed documented as of this encounter Visit Diagnoses Not on filedocumented in this encounter Care Teams Tool Planner Relationship Specialty Start Date End Date Shad Waldrop DO PCP - General Internal Medicine 09/25/21 07/13/22 Erica Carlisle MD PCP - General Internal Medicine 07/14/22 09/30/22 Prince Osei MD PCP - General Family Practice 10/01/22 Nhi Covarrubias MD PhD [address] [place] [address] Anesthesiologist Anesthesiology 10/20/22 documented as of this encounter
--- OUTSIDE RECORDS SUMMARY | 2024-08-02 13:49 | XMS_ITS | Encounter Summary ---
Author Organization [facility] Healthcare Address [address] [place] [address] Care Team Providers Care Real Estate Agent Name Role Phone Erika Blackmon MD Primary Care Provider Jordon Fields MD Primary Care Provider [phone] Shad Waldrop DO Primary Care Provider [phone] Erica Carlisle MD Primary Care Provider [phone] Prince Osei MD Primary Care Provider [phone] Nhi Covarrubias MD PhD Unavailable [phone] Encounter Details Date Type Department Care Team (Late st Contact Info) Description 03/04/2021 Telephone [facility] Pre Anesthesia Testing [address] [place] [address] Anayeli Johnson RN Social History [...] on file Legal Sex Female 10:[address]ER Gender Identity Not on file Sexual Orientation Straight 05/22/2020 6: [address] CLEARER documented as of this encounter Plan of Treatment Scheduled Procedures Name Priority Associated Diagnoses Date/Ti me COLONOSCOPY Encounter for screening for malignant neoplasm of colon documented as of this encounter Goals Goal Patient Goal Type Associated Problems Recent Progress Patient-Stated? Author CCM Chronic Pain Care Plan Chronic Care Management No change(06/11 3:[address] CLEARER) Sagar Gibson RN Note: Problem: Chronic Pain Goals: 1. Minimize further functional decline 2. Maximize quality of life 3. Control pain Strategies: - Activity/exercise program recommendation - Conservative stepwise pain medicine strategy with multi-disciplinary approach - Recommend healthy lifestyle strategies and compensatory methods as needed documented as of this encounter Visit Diagnoses Not on filedocumented in this encounter Care Teams Real Estate Agent Relationship Specialty Start Date End Date Erika Blackomn MD [address] [place] [address] PCP - General Family Medicine 05/19/20 06/21/21 Jordon Fields MD [address] [place] [address] PCP - General Internal Medicine 06/22/21 09/24/21 Shad Waldrop DO [address] [place] [address] PCP - General Internal Medicine 09/25/21 07/13/22 Erica Carlisle MD [address] [place] [address] PCP - General Internal Medicine 07/14/22 09/30/22 Prince Osei MD [address] [place] [address] PCP - General Family Practice 10/01/22 Nhi Covarrubias MD PhD [address] [place] [address] Anesthesiologist Anesthesiology 10/20/22 documented as of this encounter
--- OUTSIDE RECORDS SUMMARY | 2024-08-02 13:49 | XMS_ITS | Referral Summary ---
Author Organization [facility] Address [address] [place] [address] Care Team Providers Care Research Aide Name Role Phone Prince Osei MD Primary Care Provider [phone] Nhi Covarrubias MD PhD Unavailable [phone] Encounters Date Type Department Care Team Description 08/01/2024 Telephone [facility] Pul[facility] [address] [place] [address] [facility] 8th [place] [address] [place] [address] Qian Johnston RN 06/11/2024 2:55 PM RADIO TIME BUYER - 06/11/2024 11:59 PM RADIO TIME BUYER Hospital Encounter [facility] Advanced [address] [facility] [address] [place] [address] Nhi Covarrubias MD PhD 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 (Primary Dx); Chronic bilateral thoracic back pain Discharge Disposition: Discharge to home or self care 06/07/2024 Telephone [facility] [address] [place] [address] [facility] [address] [place] [address] Nhi Covarrubias MD PhD PMC Preprocedure 05/29/2024 Orders Only [facility] Medicine [address] [place] [address] [facility] [address] [place] [address] Nhi Covarrubias MD PhD Chronic bilateral thoracic back pain (Primary Dx) 05/22/2024 Orders Only [facility] [address] [place] [address] [facility] [address] [place] [address] Nhi Covarrubias MD PhD 05/17/2024 Telephone [facility] [address] [facility] Medicine [address] [place] [address] Nhi Covarrubias MD PhD Patient Information ( / ) 05/10/2024 3:30 PM RADIO TIME BUYER Telemedicine [facility] All[facility] Immunology [address] [place] [address] [address] [place] [id number] Josue, Denise Colvin MD Urticaria (Primary Dx); Adverse effect of drug, subsequent encounter from Last 3 Months Allergies Active Allergy [...] Sulfa (Sulfonamide Antibiotics) Rash Medium 09/18/2021 Medications cholecalcifero l (VITAMIN D-3) 59137 unit tablet Take 1,250 mcg by mouth every 30 (thirty) days Active vit 32-llnt-vhrxy- dha 27mg iron- 800 mcg-250 mg capsule Take by mouth Active ezetimibe (ZETIA) 10 mg tablet Take 1 tablet (10 mg total) by mouth daily 10/20/19 23 Active diclofenac sodium (VOLTAREN) 1 % gel Apply topically as needed Active ibuprofen (ADVIL,MOTRIN) 800 mg tablet Take 1 tablet (800 mg total) by mouth 2 (two) times a day as needed for pain 60 tablet 2 12/08/19 23 Active metoprolol XL (TOPROL-XL) 25 mg extended release tablet TAKE 1 TABLET(25 MG) BY MOUTH DAILY 90 tablet 04/19/20 23 Active hydroCHLOROthi azide (HYDRODIURIL) 25 mg tablet TAKE 1 TABLET(25 MG) BY MOUTH DAILY 90 tablet 04/19/20 23 Active fluoride, sodium, 1.1 % paste 02/23/20 23 Active progesterone (PROMETRIUM) 200 mg capsule Take by mouth daily 03/13/20 24 Active temazepam (RESTORIL) 15 mg capsule TK ONE C PO QHS PRF INSOMNIA Active plecanatide (Trulance) 3 mg tablet Take 1 tablet (3 mg total) by mouth daily Active levoFLOXacin (LEVAQUIN) 750 mg tablet TAKE 1 TABLET BY MOUTH EVERY DAY FOR 7 DAYS 05/21/19 25 Active ipratropium (ATROVENT) 42 mcg (0.06 %) nasal spray Administer into each nostril 3 (three) times a day 05/21/19 25 Active HYDROcodone-ac etaminophen (NORCO) 7.5-325 mg per tablet Take 1 tablet by mouth every 6 (six) hours 04/17/20 24 Active HYDROcodone-ac etaminophen (NORCO) 5-325 mg per tablet TAKE 1 TABLET BY MOUTH EVERY 4 TO 6 HOURS 04/27/[address] (CYMBALTA) 30 mg capsule Take 1 capsule (30 mg total) by mouth daily 05/20/19 25 Active tiZANidine (ZANAFLEX) 4 mg tablet TK 1 T PO TID PRF MUSCLE SPASTICITY Active methocarbamoL (ROBAXIN) 500 mg tablet TAKE 1/2 TABLET(250 MG) BY MOUTH THREE TIMES DAILY 90 tablet 1 08/02/19 25 Active methocarbamoL (ROBAXIN) 500 mg tablet 02/25/20 24 025 Discontinued Active Problems Problem Noted Date Diagnosed Date [...] on file Legal Sex Female 10:04 PM RADIO TIME BUYER Gender Identity Not on file Sexual Orientation Straight 05/22/2020 6: 40 PM RADIO TIME BUYER Last Filed Vital Signs Vital Sign Reading Time Taken Comments Blood Pressure 119/83 06/11/2024 4:46 PM RADIO TIME BUYER Pulse 65 06/11/2024 4:46 PM RADIO TIME BUYER Temperature 36.2 C (97.1 F) 06/11/2024 3:10 PM RADIO TIME BUYER Respiratory Rate 18 06/11/2024 4:46 PM RADIO TIME BUYER Oxygen Saturation 100% 06/11/2024 4:46 PM RADIO TIME BUYER Inhaled Oxygen Concentration - - Weight 72 kg (158 lb 11.2 oz) 06/11/2024 3:10 PM RADIO TIME BUYER Height 170.2 cm (5' 7 ) 06/11/2024 3:10 PM RADIO TIME BUYER Body Mass Index 24.86 06/11/2024 3:10 PM RADIO TIME BUYER Plan of Treatment Scheduled Procedures Name Priority Associated Diagnoses Date/Ti me COLONOSCOPY Encounter for screening for malignant neoplasm of colon Goals Goal Patient Goal Type Associated Problems Recent Progress Patient-Stated? Author CCM Chronic Pain Care Plan Chronic Care Management No change(06/11 3:12 PM RADIO TIME BUYER) No Sagar Rich, RN Note: Problem: Chronic Pain Goals: 1. 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 Please refer to the physician's procedure / OR operative note. us Nhi Covarrubias MD PhD IMG PAIN MGMT PROCEDUR ES Final Result [facility] * Colonoscopy (04/09/2024 12:40 PM RADIO TIME BUYER) Anatomical Region Laterality Modality Other Narrative Procedure Note Flavio Almaraz MD - 04/09/2024 12:40 PM CST [facility] Patient Name: Laisha Escalante Procedure Date: 04/09/2024 12:40PM Date of : 1960 Admit Type: Outpatient Age: 64 Gender: Female Attending MD: Joyce Miller Room: [facility] ENDOSCOPY ROOM 3 Note Status: Finalized Procedure: [...] scope was passed under direct vision.The CF [id number] endoscope was introduced through the anus and advanced to the cecum, identified by appendiceal orifice and ileocecal valve. The colonoscopy was performed without difficulty. The quality of the bowel preparation was evaluatedusing the BBPS ([place] Bowel Preparation Scale) withscores of: Right Colon [...] clip was successfully placed (MR conditional). Clip greens picker: [employer]. There was no bleeding at the end [...] retrieved. Clip (MR conditional) was placed. Clip greens picker: [employer]. - Seven 3 to 6 mm polyps [...] not receive the result from my office in7 business days, please contact my office at [phone]. Attending Participation: I personally performed the entire procedure. Electronically signed by Flavio Almaraz MD Flavio Almaraz M.D. 04/09/2024 1:42:22 PM . Number of Addenda: 0 Note Initiated On: 04/09/2024 12:40 PM us Flavio Almaraz MD ENDOSCOPY PROCEDUR ES Final Result from Last 3 Months or Most Recently Relevant to Health Maintenance Insurance [address] [place], [place] [id number] [place] Advance Directives For more information, please contact: [phone] Documents on File Type Date Recorded Patient Tax Assistant Expl anation ADVANCE DIRECTIVE 06/25/2020 4:44 PM Power of Predictive Maintenance Technician-Medical * Full Code (Latest Code Status on File) Date Activated Date Inactivated Comments 04/09/2024 11:51 AM 04/09/2024 7:10 PM Care Teams Research Aide Relationship Specialty Start Date End Date Prince Osei MD PCP - General Family Practice 10/01/22 Nhi Covarrubias MD PhD [address] [place] [address] Anesthesiologist Anesthesiology 10/20/22
--- OUTSIDE RECORDS SUMMARY | 2024-08-02 13:49 | XMS_ITS | Clinical Summary ---
Author Organization [facility] Address [address] [place] [address] Care Team Providers Care Head Chef Name Role Phone Prince Osei MD Primary Care Provider [phone] Nhi Covarrubias MD PhD Unavailable [phone] Allergies Active Allergy Reactions Criticality Noted Date [...] Medium 09/18/2021 Medications cholecalcifero l (VITAMIN D-3) 49587 unit tablet Take 1,250 mcg by mouth every 30 (thirty) days Active vit 95-igzx-knusq- dha 27mg iron- 800 mcg-250 mg capsule [...] Type Department Care Team Description 08/01/2024 Telephone [facility] Pulmonary [address] [facility] 8th [place] [address] [place] [address] Qian Johnston RN 06/11/2024 2:55 PM QUALITY MANAGEMENT COORDINATOR - 06/11/2024 11:59 PM QUALITY MANAGEMENT COORDINATOR Hospital Encounter [facility] [address] [place] [address] for Advanced Medicine [address] [place] [address] Nhi Covarrubias MD PhD 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 (Primary Dx); Chronic bilateral thoracic back pain Discharge Disposition: Discharge to home or self care 06/07/2024 Telephone [facility] [address] [place] [address] Advanced Medicine [address] [place] [address] Nhi Covarrubias MD PhD PMC Preprocedure 05/29/2024 Orders Only [facility] [address] [place] [address] Advanced Medicine [address] [place] [address] Nhi Covarrubias MD PhD Chronic bilateral thoracic back pain (Primary Dx) 05/22/2024 Orders Only [facility] [address] [place] [address] Advanced Medicine [address] [place] [address] Nhi Covarrubias MD PhD 05/17/2024 Telephone [facility] [address] [place] [address] Advanced Medicine [address] [place] [address] Nhi Covarrubias MD PhD Patient Information ( / ) 05/10/2024 3:30 PM QUALITY MANAGEMENT COORDINATOR Telemedicine [facility] Allergy and Immunology [address] [place] [address] [address] [place] [address] Denise Salas MD Urticaria (Primary Dx); Adverse effect of drug, subsequent encounter from Last 3 Months Immunizations Immunization Administration [...] on file Legal Sex Female 10:04 PM QUALITY MANAGEMENT COORDINATOR Gender Identity Not on file Sexual Orientation Straight 05/22/2020 6: 40 PM QUALITY MANAGEMENT COORDINATOR Obstetrics History Last Filed Vital Signs Vital Sign Reading Time Taken Comments Blood Pressure 119/83 06/11/2024 4:46 PM QUALITY MANAGEMENT COORDINATOR Pulse 65 06/11/2024 4:46 PM QUALITY MANAGEMENT COORDINATOR Temperature 36.2 C (97.1 F) 06/11/2024 3:10 PM QUALITY MANAGEMENT COORDINATOR Respiratory Rate 18 06/11/2024 4:46 PM QUALITY MANAGEMENT COORDINATOR Oxygen Saturation 100% 06/11/2024 4:46 PM QUALITY MANAGEMENT COORDINATOR Inhaled Oxygen Concentration - - Weight 72 kg (158 lb 11.2 oz) 06/11/2024 3:10 PM QUALITY MANAGEMENT COORDINATOR Height 170.2 cm (5' 7 ) 06/11/2024 3:10 PM QUALITY MANAGEMENT COORDINATOR Body Mass Index 24.86 06/11/2024 3:10 PM QUALITY MANAGEMENT COORDINATOR Plan of Treatment Scheduled Procedures Name Priority [...] Chronic Care Management No change(06/11 3:12 PM QUALITY MANAGEMENT COORDINATOR) Sagar Gibson, ELENA Note: Problem: Chronic Pain Goals: 1. 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 Please refer to the physician's procedure / OR operative note. us Nhi Covarrubias MD PhD IM OSBALDO DUNN Final Result [facility] * Colonoscopy (04/09/2024 12:40 PM QUALITY MANAGEMENT COORDINATOR) Anatomical Region Laterality Modality Other Narrative Procedure Note Flavio Almaraz MD - 04/09/2024 12:40 PM CST [facility] Patient Name: Laisha Escalante Procedure Date: 04/09/2024 12:40PM Date of : 1960 Admit Type: Outpatient Age: 64 Gender: Female Attending MD: Joyce Miller Room: [facility] ENDOSCOPY ROOM 3 Note Status: Finalized Procedure: [...] scope was passed under direct vision.The CF [id number] endoscope was introduced through the anus and advanced to the cecum, identified by appendiceal orifice and ileocecal valve. The colonoscopy was performed without difficulty. The quality of the bowel preparation was evaluatedusing the BBPS ([place] Bowel Preparation Scale) withscores of: Right Colon [...] clip was successfully placed (MR conditional). Clip child support officer: [employer]. There was no bleeding at the end [...] retrieved. Clip (MR conditional) was placed. Clip child support officer: [employer]. - Seven 3 to 6 mm polyps [...] office in, please contact my office at [phone]. Attending Participation: I personally performed the entire [...] Advance Directives For more information, please contact: [phone] Documents on File Type Date Recorded Patient Apple Checker Expl anation ADVANCE DIRECTIVE 06/25/2020 4:44 PM Power of Diploma Medical Assistant-Medical * Full Code (Latest Code Status on File) Date Activated Date Inactivated Comments 04/09/2024 11:51 AM 04/09/2024 7:10 PM Care Teams Head Chef Relationship Specialty Start Date End Date Prince Osei MD PCP - General Family Practice 10/01/22 Nhi Covarrubias MD PhD [address] [place] [address] Anesthesiologist Anesthesiology 10/20/22
== END 2024-08-02 13:22 | disposition home or self-care (01) ==
PROVIDERS: PCP Family Medicine; Visit Provider Family Medicine
DX: J40 Bronchitis, not specified as acute or chronic (principal)
CPT/HCPCS: 71046

== ENCOUNTER 2025-03-14 14:45 | Outpatient (CLI) | payer BC, SELFPAY ==
--- NOTE | ~2025-03-14 | DEXA_ITS ---
Bone Density Report Name: CHAPIN ANDERSEN Age: 64 Sex: Female Ethnicity: White Date of : 1960 Indication: postmenopausal; screening for osteoporosis; hysterectomy; Referring Provider: BROOK LOPEZ Study: Bone densitometry was performed. Exam Date: March 14, 2025 Accession number: [id number] Bone Density: Region BMD T-score Z-score Classification AP Spine(L1-L4) 0.991 -0.5 1.1 Normal Femoral Neck (Left) 0.780 -0.6 0.8 Normal Total Hip (Left) 0.939 0.0 1.1 Normal Femoral Neck (Right) 0.853 0.0 1.4 Normal Total Hip (Right) 0.980 0.3 1.4 Normal Total Hip Mean 0.959 0.2 1.3 Normal World Health Organization criteria for BMD impression classify patients as: Normal (T-score at or above -1.0), Osteopenia (T-score between -1.0 and -2.5), or Osteoporosis (T-score at or below -2.5). 10-year Fracture Risk: FRAX not reported because: All T-scores for Spine Total, Hip Total, Femoral Neck at or above -1.0 Previous Exams: -- Region Exam Age BMD T-score BMD Change BMD Change Date g/cm2 vs Baseline vs Previous -- AP Spine (L1-L4) 03/14/2025 64 0.991 -0.5 -4.4%* 3.4%* 09/04/2020 60 0.959 -0.8 -7.5%* -7.5%* 09/24/2013 53 1.037 -0.1 Total Hip(Left) 03/14/2025 64 0.939 0.0 -5.2%* -0.9% 09/04/2020 60 0.948 0.0 -4.4%* -4.4%* 09/24/2013 53 0.991 0.4 Total Hip(Right) 03/14/2025 64 0.980 0.3 -2.1% 0.2% 09/04/2020 60 0.977 0.3 -2.3% -2.3% 09/24/2013 53 1.001 0.5 -- *Denotes significance at 95% confidence level, LSC for AP Spine = 0.022 g/cm2, LSC for Total Hip = 0.027 g/cm2 Clinical Information Provided by Patient: Has used the following medications: Vitamin D Has the following medical conditions: Hysterectomy Patient maximum height was 67 Menopause Age: 32 No regular weight bearing exercise Drinks caffeinated beverages Onset of menses at age 15 Number of children 5 Impression: The patient has normal bone mass. No significant bone loss was observed. Discussion: BONE DENSITY IS ABOVE THE MINIMUM DESIRABLE LEVEL AT ALL SKELETAL SITES TESTED. This patient?s bone mineral density is above the minimum desirable level (T-score -1.0 or better) at all sites measured. The patient should follow a healthful lifestyle (good nutrition with adequate calcium and vitamin D, and appropriate weight-bearing exercise). Follow-Up: Consider repeating this study in 5 years or sooner if there is some new clinical indication. Reported by: MINDA on 03/14/2025 3:20:00 PM. Reviewed, dictated and finalized at location A.
== END 2025-03-14 14:46 | disposition home or self-care (01) ==
LOC: MICIMG 14:47
PROVIDERS: PCP Obstetrics & Gynecology; Visit Provider Emergency Medicine
DX: Z13.820 Encounter for screening for osteoporosis (principal); Z78.0 Asymptomatic menopausal state
CPT/HCPCS: 77080